=== PATIENT | female | born 1950 | race Caucasian/White ===

== ENCOUNTER 2019-12-29 15:32 | Outpatient (REF) | payer MEDICARE, SELFPAY | END 2019-12-29 15:33 | disposition home or self-care (01) | LOC: HO.LAB 15:32 | PROVIDERS: PCP Internal Medicine; Visit Provider Internal Medicine | DX: Z20.828 Contact with and (suspected) exposure to other viral communicable diseases (principal) | CPT/HCPCS: C9803; U0003 ==

== ENCOUNTER 2020-01-02 10:52 | Outpatient (REF) | payer MEDICARE, SELFPAY ==
[2020-01-02 15:01] LABS: Estimated Average Glucose 131 mg/dL; Hemoglobin A1c % 6.2 %
[2020-01-02 15:20] LABS: Alanine Aminotransferase 20 U/L (0-31); Alkaline Phosphatase 55 U/L (39-117); Anion Gap 11 (12-20); Aspartate Amino Transferase 15 U/L (5-31); Bilirubin Total 0.4 mg/dL (0.0-1.0); Blood Urea Nitrogen 16 mg/dL (9-16); Calcium 9.3 mg/dL (8.4-10.2); Carbon Dioxide 31 mmol/L (22-29); Chloride 105 mmol/L (96-108); Estimated Glomerular Filt Rate > 60; Glucose Random 105 mg/dL (60-115); Potassium 4.2 mmol/l (3.3-5.1); Sodium 143 mmol/L (135-145); Total Protein 6.6 g/dL (6.5-8.0)
== END 2020-01-02 10:53 | disposition home or self-care (01) ==
LOC: HO.HMGCLDS 10:52
PROVIDERS: PCP Internal Medicine; Visit Provider Internal Medicine
DX: E11.9 Type 2 diabetes mellitus without complications (principal); E03.9 Hypothyroidism, unspecified; F32.9 Major depressive disorder, single episode, unspecified; K21.9 Gastro-esophageal reflux disease without esophagitis; E66.09 Other obesity due to excess calories; Z68.31 Body mass index [BMI] 31.0-31.9, adult; M06.9 Rheumatoid arthritis, unspecified
CPT/HCPCS: 80053; 83036

== ENCOUNTER → 2020-02-18 09:55 | Outpatient (BNVA) | payer OTHER, MEDICARE, MEDICAID, SELFPAY | PROVIDERS: PCP Internal Medicine; Visit Provider Nurse Practitioner | DX: K21.9 Gastro-esophageal reflux disease without esophagitis (principal); K75.81 Nonalcoholic steatohepatitis (NASH) | CPT/HCPCS: Q3014 ==

== ENCOUNTER 2020-03-02 16:10 | Outpatient (REF) | payer OTHER, MEDICARE, MEDICAID, SELFPAY ==
[2020-03-03 12:49] LABS: Influenza A PCR NEGATIVE (Negative); Influenza B PCR NEGATIVE (Negative); Resp Syncy Virus RNA Qual PCR NEGATIVE (Negative); SARS COV2 PCR INHOUSE NEGATIVE (Negative)
== END 2020-03-02 16:11 | disposition home or self-care (01) ==
LOC: HO.LAB 16:10
PROVIDERS: Visit Provider Nurse Practitioner Family
DX: Z20.822 Contact with and (suspected) exposure to COVID-19 (principal)
CPT/HCPCS: 0241U; 36415

== ENCOUNTER 2020-03-10 08:05 | Outpatient (REF) | payer OTHER, MEDICARE, MEDICAID, SELFPAY ==
--- NOTE | 2020-03-10 08:10 | US_ITS ---
EXAMINATION: US ABDOMEN COMPLETE CLINICAL INFORMATION: Nonalcoholic steatohepatitis. COMPARISON: Ultrasound abdomen complete 08/01/2018 and 05/05/2016. CT abdomen and pelvis 08/11/2015. TECHNIQUE: Real-time imaging of the abdominal viscera. FINDINGS: PANCREAS: The head and body of the pancreas are normal appearing. The tail is not well visualized due to bowel gas. ABDOMINAL AORTA: The proximal and mid segments are normal in caliber. The distal abdominal aorta is not well visualized due to bowel gas. INFERIOR VENA CAVA: Visualized portions are normal. LIVER: Liver echotexture is increased probably representing fatty infiltration. There is a hypoechoic area adjacent to the gallbladder, characteristic location of focal fatty sparing. The liver is enlarged. The liver contour is normal. No other focal hepatic lesion. There is no intrahepatic biliary duct dilatation seen. GALLBLADDER: Normal. The gallbladder is physiologically distended without evidence of stones, sludge, polyps, wall thickening or pericholecystic fluid. COMMON BILE DUCT: Normal in caliber measuring 0.5 cm in diameter. RIGHT KIDNEY: There are right renal peripelvic cysts. The largest measures 3.3 x 1.9 x 3.3 cm in the midpole. No hydronephrosis. No renal calculi or focal parenchymal lesions. The kidney measures 12.7 cm in maximum dimension. LEFT KIDNEY: There are left renal peripelvic cysts. The largest measures 3.1 x 2.5 x 3.5 cm in the midpole. The previously questioned echogenic lesion in the lateral mid left kidney on 2019 exam is not definitely appreciated. This may be seen on image 37 and 38. No hydronephrosis or renal calculi. The kidney measures 13.7 cm in maximum dimension. SPLEEN: Normal. The spleen measures 8.9 cm in maximum dimension. FREE FLUID: None. US/US abdomen complete IMPRESSION: Enlarged echogenic liver probably representing fatty infiltration. No focal liver lesion or evidence of cirrhosis. Bilateral renal peripelvic cysts. Limited visualization of the pancreas and aorta.
== END 2020-03-10 08:06 | disposition home or self-care (01) ==
LOC: HO.US 08:05
PROVIDERS: PCP Internal Medicine; Visit Provider Nurse Practitioner
DX: K75.81 Nonalcoholic steatohepatitis (NASH) (principal)
CPT/HCPCS: 76700

== ENCOUNTER 2020-04-03 13:01 | Outpatient (REF) | payer OTHER, MEDICARE, MEDICAID, SELFPAY ==
--- NOTE | ~2020-04-03 | MM_ITS ---
EXAMINATION: MM SCREENING DIGITAL BREAST TOMOSYNTHESIS, BILATERAL CLINICAL INFORMATION: Screening. Asymptomatic. The lifetime risk of breast cancer based on the Tyrer-Cuzick Model is 9%. COMPARISON: Mammography: 01/18/2019, 12/11/2017, 07/18/2016 TECHNIQUE: Digital breast tomosynthesis is performed in both the craniocaudal and mediolateral oblique views along with computer-aided detection (CAD). Synthesized 2D images are generated from the tomosynthesis. Additional bilateral MLO views are provided. FINDINGS: There are scattered areas of fibroglandular density (ACR BI-RADS breast composition Category b). Parenchymal pattern is similar to prior studies. Again, there are stable minor asymmetries and benign-appearing nodularity. There are dermal lesions again seen overlying the breasts. The left breast has biopsy clip marker posterior 3:00 position. There are no abnormal calcifications. No developing density or interval mass or architectural abnormality. No significant changes. MM/MM tomosynthesis screening BI IMPRESSION: No significant changes from prior exams. ASSESSMENT: BI-RADS 2: Benign RECOMMENDATION: Routine annual mammography screening. This patient's information was entered into a reminder system with a target due date for their next mammogram.
== END 2020-04-03 13:02 | disposition home or self-care (01) ==
LOC: HO.MAMMO 13:01
PROVIDERS: PCP Internal Medicine; Visit Provider Internal Medicine
DX: Z12.31 Encounter for screening mammogram for malignant neoplasm of breast (principal)
CPT/HCPCS: 77063; 77067

== ENCOUNTER 2020-06-18 09:14 | Outpatient (REF) | payer OTHER, SELFPAY ==
[2020-06-21 13:12] LABS: Alpha Fetoprotein 3.1 ng/mL
== END 2020-06-18 09:15 | disposition home or self-care (01) ==
LOC: HO.HMGCLDS 09:14
PROVIDERS: PCP Internal Medicine; Visit Provider Nurse Practitioner
DX: K75.81 Nonalcoholic steatohepatitis (NASH) (principal)
CPT/HCPCS: 36415; 82105

== ENCOUNTER → 2020-06-25 08:36 | Outpatient (BNVA) | payer OTHER, SELFPAY | PROVIDERS: PCP Internal Medicine; Visit Provider Nurse Practitioner | DX: Z12.11 Encounter for screening for malignant neoplasm of colon (principal); K75.81 Nonalcoholic steatohepatitis (NASH); K21.9 Gastro-esophageal reflux disease without esophagitis | CPT/HCPCS: Q3014 ==

== ENCOUNTER 2020-09-22 12:12 | Outpatient (REF) | payer OTHER, SELFPAY ==
[2020-09-22 14:26] LABS: Estimated Average Glucose 146 mg/dL; Hemoglobin A1c % 6.7 %
[2020-09-22 14:34] LABS: Alanine Aminotransferase 24 U/L (0-31); Albumin Level 3.9 g/dL (3.5-5.0); Alkaline Phosphatase 54 U/L (39-117); Anion Gap 14 (12-20); Aspartate Amino Transferase 16 U/L (5-31); Bilirubin Total 0.3 mg/dL (0.0-1.0); Blood Urea Nitrogen 23 mg/dL (9-16); Calcium 9.6 mg/dL (8.4-10.2); Carbon Dioxide 26 mmol/L (22-29); Chloride 106 mmol/L (96-108); Estimated Glomerular Filt Rate > 60; Glucose Random 110 mg/dL (60-115); Potassium 3.9 mmol/L (3.3-5.1); Sodium 142 mmol/L (135-145); Total Protein 6.4 g/dL (6.5-8.0)
[2020-09-22 14:53] LABS: TSH reflex Free T4 1.63 uIU/mL (0.32-4.0)
[2020-09-23 12:52] LABS: LDL Cholesterol Direct 121 mg/dL (<100)
== END 2020-09-22 12:13 | disposition home or self-care (01) ==
LOC: HO.HMGCLDS 12:12
PROVIDERS: PCP Internal Medicine; Visit Provider Internal Medicine
DX: E03.8 Other specified hypothyroidism (principal); E13.9 Other specified diabetes mellitus without complications; E66.09 Other obesity due to excess calories; F41.1 Generalized anxiety disorder; R42 Dizziness and giddiness
CPT/HCPCS: 36415; 80053; 83036; 83721; 84443

== ENCOUNTER 2020-12-28 12:17 | Outpatient (REF) | payer OTHER, SELFPAY ==
[2020-12-28 14:55] LABS: Alanine Aminotransferase 21 U/L (0-31); Alkaline Phosphatase 63 U/L (39-117); Aspartate Amino Transferase 18 U/L (5-31); Bilirubin Direct 0.2 mg/dL (0.0-0.5); Bilirubin Total 0.4 mg/dL (0.0-1.0); Total Protein 6.5 g/dL (6.5-8.0)
[2021-01-07 09:41] LABS: Alpha Fetoprotein 2.7 ng/mL
== END 2020-12-28 12:18 | disposition home or self-care (01) ==
LOC: HO.LAB 12:17
PROVIDERS: PCP Internal Medicine; Referring Provider Internal Medicine; Visit Provider Nurse Practitioner
DX: K21.9 Gastro-esophageal reflux disease without esophagitis (principal); K75.81 Nonalcoholic steatohepatitis (NASH)
CPT/HCPCS: 36415; 80076; 82105; 99212

== ENCOUNTER 2021-01-11 13:25 | Outpatient (REF) | payer OTHER, SELFPAY ==
[2021-01-11 17:07] LABS: Estimated Average Glucose 134 mg/dL; Hemoglobin A1C 150.6977 umol/L; Hemoglobin A1c % 6.3 %
[2021-01-11 17:24] LABS: TSH reflex Free T4 0.52 uIU/mL (0.32-4.0)
== END 2021-01-11 13:26 | disposition home or self-care (01) ==
LOC: HO.HMGCLDS 13:25
PROVIDERS: Visit Provider Internal Medicine
DX: E03.8 Other specified hypothyroidism (principal); E13.9 Other specified diabetes mellitus without complications
CPT/HCPCS: 36415; 83036; 84443

== ENCOUNTER 2021-02-14 | Outpatient (REF) | payer MEDICARE, SELFPAY | END 2021-02-14 12:25 | disposition home or self-care (01) | LOC: HO.LAB | PROVIDERS: Visit Provider Internal Medicine | DX: Z13.89 Encounter for screening for other disorder (principal) | CPT/HCPCS: C9803; U0003; U0005 ==

== ENCOUNTER 2021-03-25 07:55 | Outpatient (REF) | payer MEDICARE, SELFPAY ==
--- NOTE | ~2021-03-25 | US_ITS ---
EXAMINATION: US ABDOMEN LIMITED CLINICAL INFORMATION: Nonalcoholic steatohepatitis ([place]). COMPARISON: Ultrasound abdomen complete 03/10/2020 and 08/01/2018. CT abdomen and pelvis without contrast 03/12/2015. TECHNIQUE: Real-time imaging of the right upper quadrant abdominal viscera. FINDINGS: PANCREAS: The visualized portion of the pancreas head and body are normal, portion of the pancreatic body and tail, not visualized are obscured by bowel gas. LIVER: Diffusely echogenic liver suggesting hepatic steatosis, no ultrasound evidence of focal liver lesion. GALLBLADDER: Normal. The gallbladder is physiologically distended without evidence of stones, sludge, polyps, wall thickening or pericholecystic fluid. COMMON BILE DUCT: Normal in caliber measuring 0.4 cm in diameter. RIGHT KIDNEY: Multiple right renal parapelvic cysts the largest middle pole measure 3 x 2.5 x 2.8 cm No hydronephrosis or renal calculi. The kidney measures 13.0 cm in maximum dimension. FREE FLUID: None. US/US abdomen limited IMPRESSION: *Redemonstration of diffusely echogenic liver suggesting hepatic steatosis. *Redemonstration of multiple right renal parapelvic cysts. *Ultrasound otherwise normal. No evidence of gallbladder disease, no intra or extrahepatic biliary dilatation.
== END 2021-03-25 07:56 | disposition home or self-care (01) ==
LOC: HO.US 07:55
PROVIDERS: Visit Provider Nurse Practitioner
DX: K75.81 Nonalcoholic steatohepatitis (NASH) (principal)
CPT/HCPCS: 76705

== ENCOUNTER → 2021-04-01 07:08 | Outpatient (BNVA) | payer MEDICARE, SELFPAY | PROVIDERS: PCP Internal Medicine; Referring Provider Internal Medicine; Visit Provider Nurse Practitioner | DX: K75.81 Nonalcoholic steatohepatitis (NASH) (principal); K21.9 Gastro-esophageal reflux disease without esophagitis | CPT/HCPCS: 99212 ==

== ENCOUNTER 2021-04-23 07:44 | Outpatient (REF) | payer MEDICARE, SELFPAY ==
--- NOTE | ~2021-04-23 | MM_ITS ---
EXAMINATION: MM SCREENING DIGITAL BREAST TOMOSYNTHESIS, BILATERAL CLINICAL INFORMATION: Screening. Asymptomatic. The lifetime risk of breast cancer based on the Tyrer-Cuzick Model is 6%. COMPARISON: Mammography: 04/03/2020, 01/18/2019, 12/11/2017 TECHNIQUE: Digital breast tomosynthesis is performed in both the craniocaudal and mediolateral oblique views along with computer-aided detection (CAD). Synthesized 2D images are generated from the tomosynthesis. FINDINGS: There are scattered areas of fibroglandular density (ACR BI-RADS breast composition Category b). There is no significant changes from prior studies. Again, scattered smooth nodularity is seen in both breasts and superimposed dermal lesions. There are scattered benign relatively coarse round calcifications in each breast. Biopsy clip marker again noted on left posterior 3:00 position. The axilla and skin contours are unremarkable. No significant changes. MM/MM tomosynthesis screening BI IMPRESSION: No mammographic evidence of malignancy. ASSESSMENT: BI-RADS 2: Benign RECOMMENDATION: Routine annual mammography screening. This patient's information was entered into a reminder system with a target due date for their next mammogram.
== END 2021-04-23 07:45 | disposition home or self-care (01) ==
LOC: HO.MAMMO 07:44
PROVIDERS: PCP Internal Medicine; Visit Provider Internal Medicine
DX: Z12.31 Encounter for screening mammogram for malignant neoplasm of breast (principal)
CPT/HCPCS: 77063; 77067

== ENCOUNTER 2021-04-26 09:29 | Outpatient (REF) | payer MEDICARE, SELFPAY ==
[2021-04-26 11:41] LABS: Hematocrit 40.5 % (37.0-47.0); Hemoglobin 12.8 g/dl (12.0-16.0)
[2021-04-26 11:55] LABS: Alanine Aminotransferase 17 U/L (0-31); Albumin Level 3.9 g/dL (3.5-5.0); Alkaline Phosphatase 59 U/L (39-117); Anion Gap 11 (12-20); Aspartate Amino Transferase 15 U/L (5-31); Bilirubin Total 0.4 mg/dL (0.0-1.0); Blood Urea Nitrogen 21 mg/dL (9-16); Calcium 9.9 mg/dL (8.4-10.2); Carbon Dioxide 30 mmol/L (22-29); Chloride 105 mmol/L (96-108); Estimated Glomerular Filt Rate > 60; Glucose Random 111 mg/dL (60-115); Potassium 4.4 mmol/L (3.3-5.1); Sodium 142 mmol/L (135-145); Total Protein 6.5 g/dL (6.5-8.0)
[2021-04-26 12:18] LABS: TSH reflex Free T4 0.32 uIU/mL (0.32-4.0)
[2021-04-26 12:21] LABS: Vitamin B12 651 pg/mL (200-900)
[2021-04-26 12:28] LABS: Estimated Average Glucose 126 mg/dL
[2021-04-26 12:34] LABS: Creatinine Urine 126.33 mg/dL; Microalbum/Creatinine Ratio Ur 12.6 ug/mg cr
[2021-04-27 09:51] LABS: LDL Cholesterol Direct 107 mg/dL (<100)
[2021-04-30 13:21] LABS: Vitamin D 25-OH, D2 <4 ng/mL; Vitamin D 25-OH, D3 34 ng/mL; Vitamin D 25-OH, Total 34 ng/mL (30-100)
== END 2021-04-26 09:30 | disposition home or self-care (01) ==
LOC: HO.HMGCLDS 09:29
PROVIDERS: PCP Internal Medicine; Visit Provider Internal Medicine
DX: E13.9 Other specified diabetes mellitus without complications (principal); E53.8 Deficiency of other specified B group vitamins; E55.9 Vitamin D deficiency, unspecified; E66.09 Other obesity due to excess calories; F41.1 Generalized anxiety disorder; K21.9 Gastro-esophageal reflux disease without esophagitis; N32.9 Bladder disorder, unspecified; R42 Dizziness and giddiness; E03.8 Other specified hypothyroidism
CPT/HCPCS: 36415; 80053; 82043; 82306; 82607; 83036; 83721; 84443; 85014; 85018

== ENCOUNTER 2021-06-30 13:55 | Outpatient (REF) | payer OTHER, SELFPAY ==
--- NOTE | ~2021-06-30 | XR_ITS ---
EXAMINATION: LEFT SHOULDER AND LEFT RIBS WITH CHEST X-RAY. CLINICAL INFORMATION: Fall. Pain. COMPARISON: None TECHNIQUE: Left shoulder 3 views. Left ribs and chest x-ray 4 views. FINDINGS: LEFT SHOULDER: There is no visible acute fracture, dislocation or subluxation. Heart size and pulmonary vascularity is normal. There is a small superior greater tuberosity spur. The soft tissues are normal. LEFT RIBS WITH CHEST X-RAY: The lungs are well-expanded and clear of acute pneumonic process. The heart size and pulmonary vascularity is normal. Multiple views of left ribs reveal no visible acute fracture or bony abnormality. The soft tissues are normal. XR/XR shoulder LT min 2V IMPRESSION: Unremarkable left RIBS and chest x-ray. Small enthesophyte along the superior aspect left greater tuberosity. No visible acute fracture or dislocation seen.
--- NOTE | ~2021-06-30 | XR_ITS ---
EXAMINATION: LEFT SHOULDER AND LEFT RIBS WITH CHEST X-RAY. CLINICAL INFORMATION: Fall. Pain. COMPARISON: None TECHNIQUE: Left shoulder 3 views. Left ribs and chest x-ray 4 views. FINDINGS: LEFT SHOULDER: There is no visible acute fracture, dislocation or subluxation. Heart size and pulmonary vascularity is normal. There is a small superior greater tuberosity spur. The soft tissues are normal. LEFT RIBS WITH CHEST X-RAY: The lungs are well-expanded and clear of acute pneumonic process. The heart size and pulmonary vascularity is normal. Multiple views of left ribs reveal no visible acute fracture or bony abnormality. The soft tissues are normal. XR/XR ribs LT min 3V w CXR1V IMPRESSION: Unremarkable left RIBS and chest x-ray. Small enthesophyte along the superior aspect left greater tuberosity. No visible acute fracture or dislocation seen.
== END 2021-06-30 13:56 | disposition home or self-care (01) ==
LOC: HO.HMGCX 13:55
PROVIDERS: Visit Provider Internal Medicine
DX: R07.89 Other chest pain (principal); S49.92XA Unspecified injury of left shoulder and upper arm, initial encounter; W19.XXXA Unspecified fall, initial encounter
CPT/HCPCS: 71101; 73030

== ENCOUNTER 2021-12-08 11:47 | Outpatient (REF) | payer OTHER, SELFPAY ==
--- NOTE | ~2021-12-08 | XR_ITS ---
EXAMINATION: XR CHEST CLINICAL INFORMATION: Fall COMPARISON: June 30, 2021 and May 26, 2011 TECHNIQUE: 2 views of the chest were obtained. FINDINGS: No significant abnormality is noted involving the heart, lungs, mediastinum, bony thorax or soft tissues. XR/XR chest 2V IMPRESSION: No acute disease.
[2021-12-08 13:50] LABS: MANUAL DIFF FLAG NO
[2021-12-08 13:57] LABS: Basophils Percent Auto 0.3 % (0-2); Eosinophils Percent Auto 0.1 % (0-4); Hematocrit 41.2 % (37.0-47.0); Hemoglobin 13.2 g/dl (12.0-16.0); Imm Gran Abs Auto 0.05 X10*3/uL (0.00-0.03); Imm Gran Pct Auto 0.4 % (0.0-0.4); Lymphocytes Absolute Auto 4.3 X10*3/uL (1.2-4.9); Lymphocytes Percent Auto 37.4 % (20-40); Mean Corpuscular Hemoglobin 30.8 pg (27.0-33.0); Mean Corpuscular Volume 96.3 fL (80.0-98.0); Mean Platelet Volume 9.9 fL (9.4-12.3); Monocytes Absolute Auto 0.5 X10*3/uL (0.1-1.2); Neutrophils Absolute Auto 6.6 x10*3/uL (2.0-8.3); Neutrophils Percent Auto 57.8 % (45-73); Platelet Count 321 X10*3/uL (160-400); Red Blood Count 4.28 X10*6/uL (4.20-5.50); White Blood Count 11.4 X10*3/uL (4.8-10.8)
[2021-12-08 14:13] LABS: Alanine Aminotransferase 11 U/L (0-31); Albumin Level 4.2 g/dL (3.5-5.0); Alkaline Phosphatase 60 U/L (39-117); Anion Gap 14 (12-20); Aspartate Amino Transferase 12 U/L (5-31); Blood Urea Nitrogen 24 mg/dL (9-16); Calcium 10.1 mg/dL (8.4-10.2); Carbon Dioxide 29 mmol/L (22-29); Chloride 105 mmol/L (96-108); Estimated Glomerular Filt Rate > 60; Glucose Random 121 mg/dL (60-115); Potassium 4.2 mmol/L (3.3-5.1); Sodium 144 mmol/L (135-145); Total Protein 6.9 g/dL (6.5-8.0)
[2021-12-08 14:25] LABS: Estimated Average Glucose 123 mg/dL; Hemoglobin A1c % 5.9 %
[2021-12-08 14:30] LABS: Bilirubin Total 0.5 mg/dL (0.0-1.0)
[2021-12-08 14:31] LABS: TSH reflex Free T4 0.78 uIU/mL (0.32-4.0)
[2021-12-08 14:37] LABS: Vitamin B12 675 pg/mL (200-900)
[2021-12-08 14:43] LABS: Creatinine Urine 148.49 mg/dL; Microalbum/Creatinine Ratio Ur 10.7 ug/mg cr
[2021-12-14 14:47] LABS: Vitamin D 25-OH, D2 <4 ng/mL; Vitamin D 25-OH, D3 36 ng/mL; Vitamin D 25-OH, Total 36 ng/mL (30-100)
== END 2021-12-08 11:48 | disposition home or self-care (01) ==
LOC: HO.HMGCX 11:47
PROVIDERS: PCP Internal Medicine; Visit Provider Internal Medicine
DX: E13.9 Other specified diabetes mellitus without complications (principal); K21.9 Gastro-esophageal reflux disease without esophagitis; E03.8 Other specified hypothyroidism; F41.1 Generalized anxiety disorder; E66.09 Other obesity due to excess calories; E53.8 Deficiency of other specified B group vitamins; E55.9 Vitamin D deficiency, unspecified; R07.89 Other chest pain; S49.92XA Unspecified injury of left shoulder and upper arm, initial encounter; W19.XXXA Unspecified fall, initial encounter; Y93.9 Activity, unspecified; Y92.9 Unspecified place or not applicable; Y99.9 Unspecified external cause status; Z68.31 Body mass index [BMI] 31.0-31.9, adult
CPT/HCPCS: 36415; 71046; 80053; 82043; 82306; 82607; 83036; 84443; 85025

== ENCOUNTER 2022-04-25 10:08 | Outpatient (REF) | payer OTHER, SELFPAY ==
--- NOTE | ~2022-04-25 | MM_ITS ---
EXAMINATION: MM SCREENING DIGITAL BREAST TOMOSYNTHESIS, BILATERAL CLINICAL INFORMATION: Screening. Asymptomatic. The lifetime risk of breast cancer based on the Tyrer-Cuzick Model is 6%. COMPARISON: Mammography: 04/23/2021, 04/03/2020, 01/18/2019 TECHNIQUE: Digital breast tomosynthesis is performed in both the craniocaudal and mediolateral oblique views along with computer-aided detection (CAD). Synthesized 2D images are generated from the tomosynthesis. FINDINGS: There are scattered areas of fibroglandular density (ACR BI-RADS breast composition Category b). There are no significant masses, abnormal calcifications, or other abnormalities. No architectural abnormality or developing density or significant change from prior studies. There is scattered smooth nodularity and benign coarse round and rim calcifications as well as some overlying dermal lesions again seen. Left breast has biopsy clip marker posterior 3:00 position. The axilla are unremarkable. MM/MM tomosynthesis screening BI IMPRESSION: No mammographic evidence of malignancy. ASSESSMENT: BI-RADS 2: Benign RECOMMENDATION: Routine annual mammography screening. This patient's information was entered into a reminder system with a target due date for their next mammogram.
== END 2022-04-25 10:09 | disposition home or self-care (01) ==
LOC: HO.MAMMO 10:08
PROVIDERS: PCP Internal Medicine; Visit Provider Internal Medicine
DX: Z12.31 Encounter for screening mammogram for malignant neoplasm of breast (principal)
CPT/HCPCS: 77063; 77067

== ENCOUNTER → 2022-06-06 16:02 | Outpatient (BNVA) | payer OTHER, SELFPAY | PROVIDERS: PCP Internal Medicine; Visit Provider Nurse Practitioner | DX: K75.81 Nonalcoholic steatohepatitis (NASH) (principal); K21.9 Gastro-esophageal reflux disease without esophagitis | CPT/HCPCS: 99212 ==

== ENCOUNTER 2022-06-07 14:52 | Outpatient (REF) | payer OTHER, SELFPAY ==
[2022-06-07 16:13] LABS: MANUAL DIFF FLAG NO
[2022-06-07 16:19] LABS: Basophils Percent Auto 0.2 % (0-2); Eosinophils Percent Auto 0.1 % (0-4); Hematocrit 40.5 % (37.0-47.0); Hemoglobin 12.9 g/dl (12.0-16.0); Imm Gran Abs Auto 0.09 X10*3/uL (0.00-0.03); Imm Gran Pct Auto 0.9 % (0.0-0.4); Lymphocytes Percent Auto 28.7 % (20-40); Mean Corpuscular HGB Conc 31.9 g/dl (31.0-35.0); Mean Corpuscular Hemoglobin 31.1 pg (27.0-33.0); Mean Corpuscular Volume 97.6 fL (80.0-98.0); Mean Platelet Volume 9.6 fL (9.4-12.3); Monocytes Absolute Auto 0.4 X10*3/uL (0.1-1.2); Monocytes Percent Auto 3.4 % (2-11); Neutrophils Absolute Auto 7.1 x10*3/uL (2.0-8.3); Neutrophils Percent Auto 66.7 % (45-73); Platelet Count 296 X10*3/uL (160-400); Red Blood Count 4.15 X10*6/uL (4.20-5.50); Red Cell Distribution Width 13.4 % (11.0-16.0); White Blood Count 10.6 X10*3/uL (4.8-10.8)
[2022-06-07 16:36] LABS: Alanine Aminotransferase 17 U/L (0-31); Albumin Level 3.9 g/dL (3.5-5.0); Alkaline Phosphatase 56 U/L (39-117); Aspartate Amino Transferase 14 U/L (5-31); Bilirubin Direct 0.1 mg/dL (0.0-0.5); Bilirubin Total 0.3 mg/dL (0.0-1.0); Total Protein 6.2 g/dL (6.5-8.0)
[2022-06-09 13:18] LABS: Alpha Fetoprotein 2.2 ng/mL
== END 2022-06-07 14:53 | disposition home or self-care (01) ==
LOC: HO.HMGCLDS 14:52
PROVIDERS: Visit Provider Nurse Practitioner
DX: K75.81 Nonalcoholic steatohepatitis (NASH) (principal)
CPT/HCPCS: 36415; 80076; 82105; 85025

== ENCOUNTER 2022-07-19 08:00 | Outpatient (REF) | payer OTHER, SELFPAY ==
--- NOTE | ~2022-07-19 | US_ITS ---
EXAMINATION: US COMPLETE ABDOMEN WITH LIVER ELASTOGRAPHY CLINICAL INFORMATION: [place] COMPARISON: Previous ultrasound exam most recent March 2021 TECHNIQUE: Real-time imaging of the abdominal viscera. Noninvasive ultrasound liver fibrosis assessment is performed using [employer] ElastPQ point quantification shear wave elastography (2D-SWE) with a C5-2 MHz transducer. Multiple elastography samples are obtained. FINDINGS: PANCREAS: Normal. ABDOMINAL AORTA: The proximal, middle, and distal aortic segments are normal in caliber. INFERIOR VENA CAVA: Visualized portions are normal. LIVER: Liver echotexture is increased. The liver is normal in size and contour.. No focal lesion or intrahepatic biliary duct dilatation. The right lobe measures 17 cm in length. The left lobe measures 10.6 cm in length. Portal flow is normal/hepatopedal Shear wave liver elastography median stiffness is 1.6 m/s (reference: normal median stiffness is 1.3 m/s or less). IQR/median stiffness to assess sampling precision is 0.11 (reference: good quality data set is IQR/median stiffness of 0.15 or less). GALLBLADDER: Normal. The gallbladder is physiologically distended without evidence of stones, sludge, polyps, wall thickening or pericholecystic fluid. COMMON BILE DUCT: Normal in caliber measuring 0.3 cm in diameter. RIGHT KIDNEY: Multiple peripelvic cysts largest measuring 4.5 x 2.4 x 4.9 cm in the midpole. No hydronephrosis. No renal calculi . The kidney measures 11 cm in maximum dimension. LEFT KIDNEY: Multiple peripelvic cysts, largest measuring 3.5 x 2.6 x 3.2 cm in the midpole. No hydronephrosis. No renal calculi . The kidney measures 12.4 cm in maximum dimension. SPLEEN: Normal. The spleen measures 8.5 cm in maximum dimension. FREE FLUID: None. US/US abdomen comp w elastography IMPRESSION: 1. Impression: Echogenic liver probably representing fatty infiltration. 2. Liver elastography: Adequate liver sampling. In the absence of other known clinical signs, rules out compensated advanced chronic liver disease. REFERENCE: Society of Radiologists in Ultrasound Liver Stiffness Thresholds (2020): LIVER STIFFNESS THRESHOLDS: *Liver Stiffness equal or less than 1.3 m/s: High probability of being normal. *Liver Stiffness less than 1.7 m/s: In the absence of other known clinical signs, rules out compensated advanced chronic liver disease. *Liver Stiffness 1.7-2.1 m/s: Suggestive of compensated advanced chronic liver disease but need further test for confirmation. *Liver Stiffness over 2.1 m/s: Rules in compensated advanced chronic liver disease. *Liver Stiffness over 2.4 m/s: Suggestive of clinically significant portal hypertension. QUALITY OF DATA SET: *IQR/Median value equal or less than 0.15 implies a quality data set. *IQR/Median value over 0.15 implies a poor quality data set. SIGNIFICANT CHANGE FROM PRIOR EXAM: Significant change if liver stiffness measurement is 10% or greater from prior exam. OTHER CONSIDERATIONS: The stage of liver fibrosis may be overestimated in the setting of acute hepatitis, liver inflammation, elevated liver function tests, hepatic vascular congestion, obstructive cholestasis, non-fasting state, and infiltrative diseases such as amyloidosis and lymphoma. In some patients with NAFLD, the liver stiffness thresholds for compensated advanced chronic liver disease may be lower. In causes other than viral hepatitis and NAFLD, liver stiffness thresholds are not well established.
== END 2022-07-19 08:01 | disposition home or self-care (01) ==
LOC: HO.US 08:00
PROVIDERS: Visit Provider Nurse Practitioner
DX: K75.81 Nonalcoholic steatohepatitis (NASH) (principal)
CPT/HCPCS: 76705; 76981

== ENCOUNTER 2022-07-19 09:40 | Outpatient (REF) | payer OTHER, SELFPAY ==
[2022-07-19 11:50] LABS: Alanine Aminotransferase 21 U/L (0-31); Albumin Level 3.9 g/dL (3.5-5.0); Alkaline Phosphatase 62 U/L (39-117); Anion Gap 14 (12-20); Aspartate Amino Transferase 18 U/L (5-31); Bilirubin Total 0.4 mg/dL (0.0-1.0); Blood Urea Nitrogen 17 mg/dL (9-16); Calcium 9.8 mg/dL (8.4-10.2); Carbon Dioxide 30 mmol/L (22-29); Chloride 105 mmol/L (96-108); Estimated Glomerular Filt Rate > 60; Glucose Random 111 mg/dL (60-115); Potassium 4.8 mmol/L (3.3-5.1); Sodium 144 mmol/L (135-145); Total Protein 6.6 g/dL (6.5-8.0)
[2022-07-19 12:04] LABS: Estimated Average Glucose 126 mg/dL
[2022-07-19 12:14] LABS: Vitamin B12 1278 pg/mL (200-900)
[2022-07-25 12:09] LABS: Vitamin D 25-OH, D2 <4 ng/mL; Vitamin D 25-OH, D3 38 ng/mL; Vitamin D 25-OH, Total 38 ng/mL (30-100)
== END 2022-07-19 09:41 | disposition home or self-care (01) ==
LOC: HO.HMGCLDS 09:40
PROVIDERS: PCP Internal Medicine; Visit Provider Internal Medicine
DX: E13.9 Other specified diabetes mellitus without complications (principal); E53.8 Deficiency of other specified B group vitamins; E55.9 Vitamin D deficiency, unspecified; E66.09 Other obesity due to excess calories; F41.1 Generalized anxiety disorder; K21.9 Gastro-esophageal reflux disease without esophagitis
CPT/HCPCS: 36415; 80053; 82306; 82607; 83036; 84443

== ENCOUNTER 2022-11-28 16:13 | Outpatient (AMB) | payer OTHER, SELFPAY ==
--- NOTE | 2022-11-28 16:14 | MHC.OFFVIS ---
Intake Vital Signs 11/28/22 16:24 Height 5 ft Weight 155 lb 3.287 oz BMI 30.3 BP 132/62 Blood Pressure Location Lt brachial Position Sitting Pulse 67 Intake Visit Reasons: 6 month follow up Intake Note: Patient presents to in office visit today in 6 months follow up of labs and US. CC: Patient reports occasional pulsating RUQ abdominal pain. Damián other GI symptoms today Paper Sheeter Required: Yes Paper Sheeter Name: DAUGHTER Allergies aspirin [ASPIRIN] Allergy (Intermediate, Verified 11/28/22 16:26) STOMACH UPSET HPI 6 month follow up HPI Details Assessment & Plan (1) DURHAM (nonalcoholic steatohepatitis): Comment: 12/2018 normal LFT s, US some underlaying fibrosis, AFP not elevated, autoimmune workup negative, hepatitis a B and C negative. Laboratory Tests 12/28/20 Hemoglobin A1c % 6.3 Total Bilirubin 0.4 Direct Bilirubin 0.2 AST 18 ALT 21 Alkaline Phosphatase 63 Alpha Fetoprotein 2.7 TSH 0.52 ULTRASOUND OF THE ABDOMEN 03/25/21? IMPRESSION: *Redemonstration of diffusely echogenic liver suggesting hepatic steatosis. ? *Redemonstration of multiple right renal parapelvic cysts. ? *Ultrasound otherwise normal. No evidence of gallbladder disease, no intra or extrahepatic biliary dilatation. Code(s): K75.81 - Nonalcoholic steatohepatitis (DURHAM) Plan: SIERRA LEONEAN #dtr translates per pt request She continues to do well on her omeprazole bid for GERD. She is due for more testing for DURHAM so will get labs and an US with elastography to be complete. Her rheum also looks at her liver tests. No ETOH. We again review the 3 big contributors to fatty liver decompensation to control: BS and wt and avoidance toxins. ROV 6 mos. (2) Chronic GERD: Code(s): K21.9 - Gastro-esophageal reflux disease without esophagitis Orders: Orders Alpha Fetoprotein Today K75.81 - Nonalcoho lic steatohepatiti s (DURHAM) Liver Panel Today K75.81 - Nonalcoho lic steatohepatiti s (DURHAM) Complete Blood Cou nt Auto Diff Today K75.81 - Nonalcoho lic steatohepatiti s (DURHAM) US abdomen comp w elastography Today K75.81 - Nonalcoho lic steatohepatiti s (DURHAM) Medications: Refilled omeprazole 20 mg PO BID 90 d ays 180 caps 1RF K21.9 - Gastro-eso phageal reflux dis ease without esoph agitis LABS: Laboratory Tests 06/07/22 06/07/22 06/07/22 14:56 14:56 14:56 Plt Count 296 Total Bilirubin Direct Bilirubin 0.1 AST ALT Alkaline Phosphata se Alpha Fetoprotein 2.2 TSH 07/19/22 07/19/22 07/19/22 09:45 09:45 09:45 Plt Count Total Bilirubin 0.4 Direct Bilirubin AST 18 ALT 21 Alkaline Phosphata se 62 Alpha Fetoprotein TSH 1.20 ULTRASOUND OF THE ABDOMEN WITH ELASTOGRAPHY 07/21/22 (F-0) FINDINGS: PANCREAS: Normal. ABDOMINAL AORTA: The proximal, middle, and distal aortic segments are normal in caliber. INFERIOR VENA CAVA: Visualized portions are normal. LIVER: Liver echotexture is increased. The liver is normal in size and contour.. No focal lesion or intrahepatic biliary duct dilatation. The right lobe measures 17 cm in length. The left lobe measures 10.6 cm in length. Portal flow is normal/hepatopedal Shear wave liver elastography median stiffness is 1.6 m/s (reference: normal median stiffness is 1.3 m/s or less). IQR/median stiffness to assess sampling precision is 0.11 (reference: good quality data set is IQR/median stiffness of 0.15 or less). GALLBLADDER: Normal. The gallbladder is physiologically distended without evidence of stones, sludge, polyps, wall thickening or pericholecystic fluid. COMMON BILE DUCT: Normal in caliber measuring 0.3 cm in diameter. RIGHT KIDNEY: Multiple peripelvic cysts largest measuring 4.5 x 2.4 x 4.9 cm in the midpole. No hydronephrosis. No renal calculi . The kidney measures 11 cm in maximum dimension. LEFT KIDNEY: Multiple peripelvic cysts, largest measuring 3.5 x 2.6 x 3.2 cm in the midpole. No hydronephrosis. No renal calculi . The kidney measures 12.4 cm in maximum dimension. SPLEEN: Normal. The spleen measures 8.5 cm in maximum dimension. FREE FLUID: None. US/US abdomen comp w elastography IMPRESSION: 1. Impression: Echogenic liver probably representing fatty infiltration. 2. Liver elastography: Adequate liver sampling. In the absence of other known clinical signs, rules out compensated advanced chronic liver disease. TODAY'S VISIT SIERRA LEONEAN #dtr translates per pt request She has been having intermittent sharp pains in the RUQ that feels like little stabs and is at times worse with overeating, but also is worse with sleeping on her right side. She says she is moving her bowels well and does not feel like this is related to constipation. When she has it at 3/10 and is very brief in duration. We discussed various things she should look for that may help me tease out what this is including whether it is related to time of day, types of food eaten, if it feels better after passing gas etc.. She will try to pay closer attention to it and should it worsen she is welcome to return to my office for better workup. Her GERD continues to be well controlled on her omeprazole. We review her labs and her liver looks extremely good, within elastography reading F-0 and normal transaminases I do not think we need to monitor her every 6 months. Controlling her weight her diabetes has gone a long wait to protecting her liver. At this point I think she can be monitored by her primary care provider through normal screenings and return to [facility] if the transaminases rise to more than 2 times the normal limit. [facility] Medical History Chronic GERD Diabetes 1.5, managed as type 2 Nausea & vomiting Vertigo Surgical History History of carpal tunnel release History of section History of colonoscopy History of tubal ligation Status post excision of lipoma Family History Father Lung cancer Mother Melanoma Maternal Aunt Breast cancer Daughter No problems noted. Daughter No problems noted. Daughter No problems noted. Daughter No problems noted. Other Mental health disorder Social History Household Members: None Housing: Condominium Alcohol intake: never Patient Tobacco Use Status: Never used Tobacco e-Cigarette/Vaping Use: Never Used Second Hand Smoke Exposure: No Current occupational status: retired Cognitive needs: No Hearing needs: No Vision needs: Yes Review of Systems Const Denies fatigue, Denies fever(s), Denies night sweats, Denies poor appetite and Denies weight loss Eyes Details: glasses Reports requires corrective lenses ENT Reports Normal hearing present, Denies dental pain, Denies dysphagia, Denies hearing loss, Denies mouth pain, Denies odynophagia, Denies throat swelling, Denies tongue swelling and Reports other (Dentition adequate) Card Reports no additional complaints Resp Reports no additional complaints GI Reports abdominal pain, Denies melena, Denies bloating, Denies hematochezia, Denies constipation, Denies GI cramping, Denies dysphagia, Denies excessive flatus, Denies early satiety, Reports heartburn, Denies diarrhea, Denies nausea, Denies odynophagia, Denies vomiting and Denies hematemesis Musc Reports back pain and Reports myalgias Skin/Breast Denies pruritus, Denies lesions, Denies rash and Denies jaundice Neuro Reports Normal hearing present and Denies Abnormal speech present Endo Denies fatigue Aller/Immun Denies throat swelling and Denies tongue swelling Physical Exam Const General: cooperative, no acute distress, well developed and well groomed Nutritional Appearance: well nourished and obese Orientation/consciousness: oriented to person, oriented to place and oriented to time Limitations: language barrier HEENT Head: Yes normocephalic and Yes atraumatic Eyes General: appearance normal, both eyes and all related structures Pupils: Equal, round and reactive pupils present Neck Neck: Yes normal visual inspection and Yes no lymphadenopathy Thyroid: Thyroid normal Resp Effort & Inspection: normal respiratory effort and able to speak in complete sentences Auscultation: clear to auscultation bilaterally Cardio Rate: regular rate Rhythm: regular rhythm Heart sounds: Normal, physiologic split S2 sound present Peripheral pulses: radial pulses present and posterior tibial pulses present GI Inspection: No distended, Yes Abdominal panniculus present and Yes obesity Palpation (GI): Soft to palpation, nontender, no guarding, not rigid and No hepatosplenomegaly present Percussion: Yes normal to percussion Auscultation: normal bowel sounds Rectal Exam - Female: deferred Skin General skin exam: no rashes or lesions noted, turgor normal, skin not dry, no jaundice, No spider nevi and no striae Rashes: no rashes Nails: normal Neuro General: oriented to person, oriented to place and oriented to time Cranial nerves: Yes Equal, round and reactive pupils present and Yes Normal hearing present Speech: No Abnormal speech present Extrem General: Yes normal to inspection, No clubbing, No cyanosis and No edema Psych Appearance: grossly normal and well kempt Mental Status: mental status grossly normal Speech and movement: Normal speech and movement present Affect: normal affect Attitude: cooperative Thought process: Normal thought process present and not confabulating Thought content: Normal thought content present Insight: Limited insight present (Psych) Judgement: Limited judgement present (Psych) Results Reviewed Results Reviewed: Laboratory Tests 06/07/22 06/07/22 06/07/22 14:56 14:56 14:56 Plt Count 296 Total Bilirubin Direct Bilirubin 0.1 AST ALT Alkaline Phosphatase Alpha Fetoprotein 2.2 TSH 07/19/22 07/19/22 07/19/22 09:45 09:45 09:45 Plt Count Total Bilirubin 0.4 Direct Bilirubin AST 18 ALT 21 Alkaline Phosphatase 62 Alpha Fetoprotein TSH 1.20 ULTRASOUND OF THE ABDOMEN WITH ELASTOGRAPHY 07/21/22 (F-0) FINDINGS: PANCREAS: Normal. ABDOMINAL AORTA: The proximal, middle, and distal aortic segments are normal in caliber. INFERIOR VENA CAVA: Visualized portions are normal. LIVER: Liver echotexture is increased. The liver is normal in size and contour.. No focal lesion or intrahepatic biliary duct dilatation. The right lobe measures 17 cm in length. The left lobe measures 10.6 cm in length. Portal flow is normal/hepatopedal Shear wave liver elastography median stiffness is 1.6 m/s (reference: normal median stiffness is 1.3 m/s or less). IQR/median stiffness to assess sampling precision is 0.11 (reference: good quality data set is IQR/median stiffness of 0.15 or less). GALLBLADDER: Normal. The gallbladder is physiologically distended without evidence of stones, sludge, polyps, wall thickening or pericholecystic fluid. COMMON BILE DUCT: Normal in caliber measuring 0.3 cm in diameter. RIGHT KIDNEY: Multiple peripelvic cysts largest measuring 4.5 x 2.4 x 4.9 cm in the midpole. No hydronephrosis. No renal calculi . The kidney measures 11 cm in maximum dimension. LEFT KIDNEY: Multiple peripelvic cysts, largest measuring 3.5 x 2.6 x 3.2 cm in the midpole. No hydronephrosis. No renal calculi . The kidney measures 12.4 cm in maximum dimension. SPLEEN: Normal. The spleen measures 8.5 cm in maximum dimension. FREE FLUID: None. US/US abdomen comp w elastography IMPRESSION: 1. Impression: Echogenic liver probably representing fatty infiltration. 2. Liver elastography: Adequate liver sampling. In the absence of other known clinical signs, rules out compensated advanced chronic liver disease. Assessment & Plan Assessment & Plan (1) DURHAM (nonalcoholic steatohepatitis): Comment: OF 11/2022 I AM RETURNING HER TO HER PRIMARY CARE PROVIDER TO BE MONITORED AT NORMAL SCREENING INTERVALS AND RETURN TO US ONLY FOR TRANSAMINASES RISE TO GREATER THAN 2 TIMES THE NORMAL LIMIT. Baseline 12/2018 normal LFT s, US some underlaying fibrosis, AFP not elevated, autoimmune workup negative, hepatitis a B and C negative. Baseline. Laboratory Tests 12/28/20 Hemoglobin A1c % 6.3 Total Bilirubin 0.4 Direct Bilirubin 0.2 AST 18 ALT 21 Alkaline Phosphatase 63 Alpha Fetoprotein 2.7 TSH 0.52 ULTRASOUND OF THE ABDOMEN WITH ELASTOGRAPHY 07/21/22 (F-0) CURRENT LABS 06/07/22 Plt Count 296 Direct Bilirubin 0.1 Alpha Fetoprotein 2.2 07/19/22 the Total Bilirubin 0.4 Direct Bilirubin AST 18 ALT 21 Alkaline Phosphatase 62 ULTRASOUND OF THE ABDOMEN WITH ELASTOGRAPHY 07/21/22 (F-0) IMPRESSION: 1. Impression: Echogenic liver probably representing fatty infiltration. 2. Liver elastography: Adequate liver sampling. In the absence of other known clinical signs, rules out compensated advanced chronic liver disease. Code(s): K75.81 - Nonalcoholic steatohepatitis (DURHAM) Plan: SIERRA LEONEAN #dtr translates per pt request She has been having intermittent sharp pains in the RUQ that feels like little stabs and is at times worse with overeating, but also is worse with sleeping on her right side. She says she is moving her bowels well and does not feel like this is related to constipation. When she has it at 3/10 and is very brief in duration. We discussed various things she should look for that may help me tease out what this is including whether it is related to time of day, types of food eaten, if it feels better after passing gas etc.. She will try to pay closer attention to it and should it worsen she is welcome to return to my office for better workup. Her GERD continues to be well controlled on her omeprazole. We review her labs and her liver looks extremely good, within elastography reading F-0 and normal transaminases I do not think we need to monitor her every 6 months. Controlling her weight her diabetes has gone a long wait to protecting her liver. At this point I think she can be monitored by her primary care provider through normal screenings and return to [facility] if the transaminases rise to more than 2 times the normal limit. (2) Chronic GERD: Code(s): K21.9 - Gastro-esophageal reflux disease without esophagitis Coding Level of Care Code Est Pt Level 3 (12841) Diagnoses DURHAM (nonalcoholic steatohepatitis) K75.81 Chronic GERD K21.9
[2022-11-28 16:24] VITALS: BP 132/62; PULSE 67; BMI 30.3
== END 2022-11-28 16:51 | disposition home or self-care (01) ==
PROVIDERS: Visit Provider Nurse Practitioner
DX: K75.81 Nonalcoholic steatohepatitis (NASH) (principal); K21.9 Gastro-esophageal reflux disease without esophagitis
CPT/HCPCS: 99213

== ENCOUNTER → 2022-11-28 16:13 | Outpatient (BNVA) | payer OTHER, SELFPAY | PROVIDERS: Visit Provider Nurse Practitioner | DX: K75.81 Nonalcoholic steatohepatitis (NASH) (principal); K21.9 Gastro-esophageal reflux disease without esophagitis; Z79.899 Other long term (current) drug therapy | CPT/HCPCS: 99212 ==

== ENCOUNTER 2022-11-29 11:20 | Outpatient (REF) | payer OTHER, SELFPAY ==
[2022-11-29 13:54] LABS: Alanine Aminotransferase 16 U/L (0-31); Alkaline Phosphatase 61 U/L (39-117); Anion Gap 14 (12-20); Aspartate Amino Transferase 17 U/L (5-31); Bilirubin Total 0.4 mg/dL (0.0-1.0); Blood Urea Nitrogen 16 mg/dL (9-16); Carbon Dioxide 29 mmol/L (22-29); Chloride 104 mmol/L (96-108); Cholesterol 237 mg/dL (<200); Estimated Glomerular Filt Rate > 60; Glucose Fasting 104 mg/dL (60-99); HDL Cholesterol 64 mg/dL (>40); LDL Cholesterol Calculated 149 mg/dL (<100); Potassium 4.8 mmol/L (3.3-5.1); Sodium 142 mmol/L (135-145); Total Protein 7.1 g/dL (6.5-8.0); Triglycerides 124 mg/dL (<150)
[2022-11-29 14:12] LABS: TSH reflex Free T4 3.53 uIU/mL (0.32-4.0)
[2022-11-30 20:13] LABS: LDL Cholesterol Direct 155 mg/dL (<100)
[2022-12-02 18:23] LABS: Vitamin D 25-OH, D2 <4 ng/mL; Vitamin D 25-OH, D3 35 ng/mL; Vitamin D 25-OH, Total 35 ng/mL (30-100)
== END 2022-11-29 11:21 | disposition home or self-care (01) ==
LOC: HO.HMGCLDS 11:20
PROVIDERS: PCP Internal Medicine; Visit Provider Internal Medicine
DX: Z00.01 Encounter for general adult medical examination with abnormal findings (principal); E53.8 Deficiency of other specified B group vitamins; E55.9 Vitamin D deficiency, unspecified; E66.09 Other obesity due to excess calories; E03.8 Other specified hypothyroidism; F41.1 Generalized anxiety disorder; E13.9 Other specified diabetes mellitus without complications; K21.9 Gastro-esophageal reflux disease without esophagitis
CPT/HCPCS: 36415; 80053; 80061; 82306; 82607; 83036; 83721; 84443; 85025

== ENCOUNTER → 2023-01-30 13:12 | Outpatient (REF) | payer OTHER, SELFPAY ==
--- NOTE | 2023-01-30 13:15 | HM_ITS ---
Conclusion: 1. Patient was monitored for total period of 1 day 2. Baseline was normal sinus rhythm with average heart of 64 beats per minute 3. Frequent sinus bradycardia noted with total burden of 45% with lower start of 47 beats per minute with no significant pauses 4. No significant arrhythmias noted 5. No patient reported events MTDD
== END ==
LOC: HO.CARD 13:12
PROVIDERS: PCP Internal Medicine; Visit Provider Internal Medicine
DX: R00.2 Palpitations (principal)
CPT/HCPCS: 93225

== ENCOUNTER → 2023-01-30 13:15 | Outpatient (BNV) | payer OTHER, SELFPAY | PROVIDERS: PCP Internal Medicine; Visit Provider Internal Medicine Cardiovascular Disease | DX: R00.1 Bradycardia, unspecified (principal) | CPT/HCPCS: 93227 ==

== ENCOUNTER 2023-02-17 09:56 | Emergency (ER) | payer OTHER, SELFPAY ==
--- NOTE | ~2023-02-17 | XR_ITS ---
EXAMINATION: XR FOREARM, RIGHT CLINICAL INFORMATION: Pain status-post fall. COMPARISON: None available. TECHNIQUE: AP and lateral views of the right forearm were obtained. FINDINGS: The bones and soft tissues are normal. No fracture. Imaged portions of the elbow and wrist are unremarkable. XR/XR forearm RT 2V IMPRESSION: Normal right forearm.
--- NOTE | ~2023-02-17 | CT_ITS ---
EXAMINATION: CT HEAD WITHOUT CONTRAST CLINICAL INFORMATION: Fall head injury COMPARISON: None TECHNIQUE: Contiguous axial imaging was performed from the skull base to vertex without intravenous administration of contrast. This CT examination was performed using dose optimization techniques as appropriate, variously including the following: *Automated exposure control *Adjustment of mA and/or kV according to patient size (this includes techniques or standardized protocols for targeted exams where dose is matched to indication/reason for exam; i.e. extremities or head) *Use of iterative reconstruction technique DLP: 1055 mGy-cm FINDINGS: There is no evidence of acute intracranial hemorrhage or territorial infarction. No abnormal mass effect or midline shift is seen. White to white matter differentiation is well preserved. No extra-axial fluid collections are identified. The ventricles are normal in size. There is no abnormal attenuation within the brain parenchyma. The osseous structures and soft tissues are normal. The mastoid air cells and visualized portions of the paranasal sinuses are well aerated. CT/CT cervical spine wo IV con IMPRESSION: No acute intracranial pathology. EXAMINATION: Noncontrast CT scan of the cervical spine. INDICATION: Fall COMPARISON: 1055 TECHNIQUE: Helical, multidetector axial images were obtained from the occiput to the upper thorax. Coronal and sagittal reformats of the cervical spine were provided for interpretation. DLP: None. mGy-cm FINDINGS: No acute fractures or dislocations of the cervical spine are seen. Straightening of the normal cervical curvature which may be secondary to patient positioning versus muscle spasm. Grade 1 anterolisthesis of C3 on C4 and C4 on C5. Multilevel degenerative changes. Anatomic alignment and positioning of the vertebral bodies and posterior elements is noted. The atlantoaxial joint and craniovertebral articulations are normal without evidence of subluxation. There is no prevertebral soft tissue swelling. The thyroid gland and visualized portions of the lung apices and mediastinum are unremarkable. IMPRESSION: 1. No acute visible fracture or dislocation. 2. Straightening of the normal cervical curvature which may be secondary to patient positioning versus muscle spasm. 3. Grade 1 anterolisthesis of C3 on C4 and C4 on C5. 4. Multilevel degenerative changes.
[2023-02-17 10:30] VITALS: BP 147/62; PULSE 53; RESP 18; TEMP 36; BMI 29.4
--- NOTE | 2023-02-17 10:58 | ED.FALL ---
HPI - Fall General Chief Complaint: Fall Stated Complaint: fall 02/15, head injury Time Seen by Provider: 02/17/23 10:39 Source: patient and family Mode of arrival: ambulatory Limitations: language barrier ( Telugu-speaking transportation department supervisor utilized) History of Present Illness HPI Narrative: patient is a 73-year-old female who presents emergency department for evaluation after mechanical fall 2 days ago on 02/15/2023. States that she was attempting to hang Alix lights in her room, she was standing on her bed when she lost her footing in the sheets, resulting in her falling off the side of the bed. She struck the back of her head against a dresser denies any loss of consciousness nor use of anticoagulants, and hit her right arm into the dresser as well were she sustained a proximal forearm skin tear and has pain to this region. she has been experiencing intermittent headache reports a lump to the before region. Denies dizziness, lightheadedness. She reports diffuse neck pain bilateral shoulder pain. Denies numbness or tingling of the extremities, weakness, unsteady gait, bladder bowel dysfunction, saddle paresthesias. Related Data Home Medications Medication Instructions Recorded Confirmed cholecalciferol (vitamin D3) 25 25 mcg PO DAILY 01/29/20 11/29/22 mcg (1,000 unit) capsule celecoxib 200 mg capsule 200 mg PO BID 04/01/21 11/29/22 magnesium 250 mg tablet 250 mg PO DAILY 06/06/22 11/29/22 Previous Rx's Medication Instructions Recorded blood sugar diagnostic (FreeStyle #100 ea 12/09/21 Lite Strips) lancets 28 gauge (FreeStyle #100 ea 12/09/21 Lancets) flash glucose scanning reader #1 ea 12/19/21 (FreeStyle [facility]) flash glucose scanning reader #1 ea 12/20/21 (FreeStyle [facility]) cyanocobalamin (vitamin B-12) 500 500 mcg PO DAILY #90 tabs 05/04/22 mcg tablet (Vitamin B-12) omeprazole 20 mg capsule,delayed 20 mg PO BID 90 days #180 caps 06/06/22 release fluticasone propionate 50 1 spray intranasal BID #16 grams 07/29/22 mcg/actuation nasal spray,suspension (Flonase Allergy Relief) meclizine 25 mg tablet 25 mg PO BID PRN dizziness 15 days 11/29/22 #30 tabs levothyroxine 88 mcg tablet 88 mcg PO DAILY #90 tabs 02/02/23 tizanidine 4 mg tablet 4 mg PO Q8H PRN muscle spasticity 02/17/23 #14 tabs Allergies Allergy/AdvReac Type Severity Reaction Status Date / Time aspirin [ASPIRIN] Allergy Intermediate STOMACH Verified 02/17/23 10:33 UPSET Review of Systems Review of Systems: Yes all other systems are reviewed and are negative [facility] Past Medical History Attestation statement: The following information was validated with the patient. Source: old records reviewed Medical History Nausea & vomiting Vertigo Diabetes 1.5, managed as type 2 Chronic GERD Surgical History Status post excision of lipoma History of colonoscopy History of carpal tunnel release History of tubal ligation History of section Family History Family History Father Lung cancer Mother Melanoma Maternal Aunt Breast cancer Daughter No problems noted. Daughter No problems noted. Daughter No problems noted. Daughter No problems noted. Other Mental health disorder Social History Social History Household Members: None Housing: Condominium Alcohol intake: never Patient Tobacco Use Status: Never used Tobacco e-Cigarette/Vaping Use: Never Used Second Hand Smoke Exposure: No Advance Directives: No Advance Directives Information Provided: No Current occupational status: retired Cognitive needs: No Hearing needs: No Vision needs: Yes Physical Exam Vital Signs: Vital Signs: Last Vital Signs Temp 97.7 F 02/17/23 14:32 Pulse 55 02/17/23 14:32 Resp 14 02/17/23 14:32 BP 94/54 L 02/17/23 14:32 Pulse Ox 97 02/17/23 14:32 O2 Del Method Room Air 02/17/23 14:32 BMI result Body Mass Index 29.4 Appearance: Alert.?Oriented to person, place and time. No acute distress.?Normal affect. Head: Normocephalic. Small hematoma to the right occipital region Eyes: Pupils equal, round and reactive to light. EOMI. Conjunctiva and sclera normal? No Reynolds sign noted. No raccoon eyes noted ENT: No septal hematoma, nares patent bilaterally. External auditory canal normal tympanic membrane pearly braun and intact bilaterally. Dentition normal, no fractured teeth. No lesions or lacerations of oropharynx. Uvula midline. Moist mucous membranes. Neck: Normal inspection.? Neck supple.??No palpable tenderness, step-off, deformities. CVS: Heart sounds normal. Normal heart rate and rhythm.? Pulses normal.?? Respiratory: No respiratory distress.? Lung sounds clear to auscultation bilaterally?? Abdomen: Soft and non-tender. Normoactive bowel sounds. ?? Skin: Skin warm and dry.? Normal skin color.? Extremities: No lower extremity edema.? 2 cm proximal right forearm skin tear Neuro: Moves all extremities spontaneously. Sensation intact bilaterally. CN II-XII intact. No focal neuro deficits. ambulatory with a steady gait Course Reevaluation(s) Reevaluation #1: XR of the right forearm without evidence of fracture dislocation. Patient had significant improvement in pain with tizanidine. CT of the head is without acute intracranial pathology, no evidence of fracture. There is straightening of the normal cervical curvature sure likely due to muscle spasming, in addition to degenerative changes with grade 1 anterolisthesis of C3 on C4 and C4 on C5. Patient and daughter were made aware of these findings. Discussed recommendations for treatment including NSAID which she is already prescribed, physical therapy, rest, outpatient follow-up with primary care provider and/or possible referral for Neurosurgery in the future should symptoms not improve. At this time patient will be discharged home, sent prescription for tizanidine the patient's pharmacy. Discussed worrisome signs and symptoms that would warrant re-evaluation emergency department. All questions answered. Stable for discharge. Time: 14:38 Medications Administered Discontinued Medications Generic Name Dose Route Start Last Admin Trade Name Freq PRN Reason Stop Dose Admin Tizanidine HCl 4 mg 02/17/23 11:05 02/17/23 11:30 Tizanidine Hcl 4 Mg Tablet PO 02/17/23 11:06 4 mg ONCE ONE Administration Medical Decision Making Medical Decision Making MDM Narrative: patient is a 73-year-old female with past medical history of GERD, diabetes, vertigo presenting to emergency department for evaluation after mechanical fall 2 days ago with head strike and no loss of consciousness. upon physical examination she has a skin Tear to the right proximal forearm which would not be amenable to any suture repair at this time, has proximal forearm tenderness upon palpation, full AROM to the elbow and wrist, plan to obtain XR to exclude fracture to the forearm. She has no focal neurological deficits upon examination, there is a right occipital scalp hematoma, plan to obtain CT head and cervical spine to exclude ICH/ SDH/fracture/ subluxation. Will trial tizanidine for pain med at this time a she has diffuse tenderness upon palpation of the trapezius and paraspinal muscles. she has bursitis of bilateral hips and she is already prescribed Celebrex which she took today, would defer any additional NSAID. Differential Diagnosis Differential Diagnoses: The differential diagnosis associated with the presentation includes ( as noted above) Admission/Observation Consideration of admission/observation: Escalation of care including admission/observation considered ( see narrative above and course narrative for further detail) Independent Interpretation I performed an independent interpretation of an: Plain X-Ray ( I personally interpreted XR and agree with radiologist impression) and CT Scan Radiology Impression Discussion of test interpretation with radiology: I have reviewed the radiologist's reading. Radiologist Impression: XR/XR forearm RT 2V IMPRESSION: Normal right forearm. IMPRESSION: 1. No acute visible fracture or dislocation. 2. Straightening of the normal cervical curvature which may be secondary to patient positioning versus muscle spasm. 3. Grade 1 anterolisthesis of C3 on C4 and C4 on C5. 4. Multilevel degenerative changes. Independent Historian Clinical information obtained from an independent historian. History obtained from or confirmed by: Other ( daughter who confirms history) External Record Review External record reviewed: Outpatient record Discharge Plan Discharge Clinical Impression: Closed head injury without loss of consciousness, Anterolisthesis of cervical spine Patient Disposition: Home, Self-Care Instructions: Head Injury (ED), Spondylolisthesis (ED) Additional Instructions: as discussed, the CT scan does not show any evidence of fracture bleeding into the brain which is very reassuring. The CT of the neck reveals degenerative/ arthritic changes with grade 1 anterolisthesis of C3 on C4 and C4 on C5. As discussed, the recommendation for treatment of this includes NS AID in which he may continue taking her Celebrex as currently prescribed, rest, consulting with your primary care provider to set up physical therapy, and an additional appointment for outpatient follow-up and further management. I sent a prescription for the tizanidine to the pharmacy, as discussed this medication may make you drowsy, should not drive, drink alcohol, or operate any type of machinery while taking this medication. The x-ray of the right form does not show any evidence of fracture dislocation which is very reassuring, continue applying topical antibiotic ointment to the skin tear as you have been. Prescriptions: New tizanidine 4 mg tablet 4 mg PO Q8H PRN (Reason: muscle spasticity) Qty: 14 0RF No Action (DME) lancets [FreeStyle Lancets] 28 gauge misc See Rx Instructions .Route Qty: 100 0RF Rx Instructions: Once a day (DME) FreeStyle Lite Strips Strip See Rx Instructions .Route Qty: 100 0RF Rx Instructions: Once a day (DME) FreeStyle [facility] Misc See Rx Instructions .Route Qty: 1 0RF Rx Instructions: As directed (DME) FreeStyle [facility] Misc See Rx Instructions .Route Qty: 1 0RF Rx Instructions: As directed cyanocobalamin (vitamin B-12) [Vitamin B-12] 500 mcg tablet 500 mcg PO DAILY Qty: 90 3RF levothyroxine 88 mcg tablet 88 mcg PO DAILY Qty: 90 0RF cholecalciferol (vitamin D3) 25 mcg (1,000 unit) capsule 25 mcg PO DAILY fluticasone propionate [Flonase Allergy Relief] 50 mcg/actuation spray,suspension 1 spray intranasal BID Qty: 16 0RF Rx Instructions: administer into each nostril meclizine 25 mg tablet 25 mg PO BID PRN (Reason: dizziness) 15 Days Qty: 30 0RF celecoxib 200 mg capsule 200 mg PO BID magnesium 250 mg tablet 250 mg PO DAILY omeprazole 20 mg capsule,delayed release(DR/EC) 20 mg PO BID 90 Days Qty: 180 1RF Referrals: Travis Carias MD [Primary Care Provider] -
[2023-02-17] MEDS: TiZANidine HCL 4 MG TABLET PO (11:30)
[2023-02-17 14:32] VITALS: BP 94/54; PULSE 55; RESP 14; TEMP 36.5; O2SAT 97
== END 2023-02-17 15:00 | disposition home or self-care (01) ==
PROVIDERS: Emergency Provider Emergency Medicine; PCP Internal Medicine
DX: S09.90XA Unspecified injury of head, initial encounter (principal); S13.4XXA Sprain of ligaments of cervical spine, initial encounter; R51.9 Headache, unspecified; M54.2 Cervicalgia; M79.601 Pain in right arm; W06.XXXA Fall from bed, initial encounter; Y93.9 Activity, unspecified; Y92.003 Bedroom of unspecified non-institutional (private) residence as the place of occurrence of the external cause; Y99.9 Unspecified external cause status
CPT/HCPCS: 70450; 72125; 73090; 99284

== ENCOUNTER 2023-03-08 14:44 | Outpatient (AMB) | payer OTHER, SELFPAY ==
[2023-03-08 14:47] VITALS: BP 118/66; PULSE 53; BMI 28.8
--- NOTE | 2023-03-08 14:47 | A.OFFVIS_ITS ---
Intake Vital Signs 03/08/23 14:47 Height 5 ft Weight 147 lb 11.355 oz BMI 28.8 BP 118/66 Blood Pressure Location Lt brachial Position Sitting Pulse 53 Intake Visit Reasons: registry np/ palp /gisselle Intake Note: NPV w/ EKG Accompanied by: Daughter Allergies aspirin [ASPIRIN] Allergy (Intermediate, Verified 03/08/23 14:49) STOMACH UPSET Medication List - Last Reconciled 03/08/23 by Jean Coombs MD blood sugar diagnostic (FreeStyle Lite Strips) Once a day celecoxib 200 mg PO BID cholecalciferol (vitamin D3) 25 mcg PO DAILY cyanocobalamin (vitamin B-12) (Vitamin B-12) 500 mcg PO DAILY flash glucose scanning reader (FreeStyle [facility]) As directed flash glucose scanning reader (FreeStyle [facility]) As directed fluticasone propionate 50 mcg/actuation (Flonase Allergy Relief) 1 spray intranasal BID lancets (FreeStyle Lancets) Once a day levothyroxine 88 mcg PO DAILY magnesium 250 mg PO DAILY meclizine 25 mg PO BID PRN 15 days omeprazole 20 mg PO BID 90 days tizanidine 4 mg PO Q8H PRN HPI HPI Comments History of Present Illness Details Anna is here for consultation regarding palpitations. She states that she is getting palpitations mainly at nighttime. In fact she has no palpitations at all during the day. Daughter access geometry professor and they signed the appropriate form. No other cardiac issues like coronary disease or myocardial infarction or cardiomyopathy or in fact any other cardiac concerns the past. Apart from the nighttime palpitations he does not have any other complaints like angina or shortness of breath. Daughter states that she is actually functioning quite well. [facility] Medical History Nausea & vomiting Vertigo Diabetes 1.5, managed as type 2 Chronic GERD Surgical History Status post excision of lipoma History of colonoscopy History of carpal tunnel release History of tubal ligation History of section Family History Father Lung cancer Mother Melanoma Maternal Aunt Breast cancer Daughter No problems noted. Daughter No problems noted. Daughter No problems noted. Daughter No problems noted. Other Mental health disorder Social History Household Members: None Housing: Condominium Alcohol intake: never Patient Tobacco Use Status: Never used Tobacco e-Cigarette/Vaping Use: Never Used Second Hand Smoke Exposure: No Current occupational status: retired Cognitive needs: No Hearing needs: No Vision needs: Yes Review of Systems Const Denies chills, Denies daytime sleepiness, Denies fatigue, Denies fever(s), Denies frequent falls, Denies night sweats, Denies snoring, Denies weakness, Denies weight gain and Denies weight loss Eyes Denies loss of vision ENT Denies dizziness and Denies hearing loss Card Denies chest pain, Denies chest pain with activity, Denies syncope, Denies rapid heart rate, Denies edema, Denies claudication, Denies leg edema, Denies lightheadedness, Denies dyspnea, Denies dyspnea on exertion and Denies orthopnea Resp Denies cough, Denies excessive phlegm production, Denies dyspnea, Denies dyspnea on exertion, Denies snoring and Denies wheezing GI Denies abdominal pain, Denies hematochezia, Denies change in bowel habits, Denies change in stool character, Denies heartburn, Denies nausea and Denies vomiting Denies hematuria, Denies urinary frequency and Denies dysuria Musc Denies arthralgias, Denies muscle weakness, Denies numbness and Denies tingling Skin/Breast Denies nail changes and Denies rash Neuro Denies Abnormal speech present, Denies dizziness, Denies syncope, Denies frequent falls, Denies loss of vision, Denies memory loss, Denies numbness, Denies tingling and Denies weakness Psych Denies depression and Denies memory loss Endo Denies fatigue Aller/Immun Denies wheezing Physical Exam Vital Signs: Last Vital Signs Pulse 53 03/08/23 14:47 BP 118/66 03/08/23 14:47 BMI result Body Mass Index 28.8 Const General: comfortable and no acute distress Orientation/consciousness: patient oriented x3 HEENT Other: Unremarkable Head: Yes normal to inspection Neck Neck: Yes normal visual inspection Chest Chest palpation & inspection: normal inspection of the chest Resp Auscultation: clear to auscultation bilaterally Cardio Palpation: normal PMI Heart sounds: S1 normal heart sound present, S2 normal heart sound present, no gallops, no murmurs and no rubs GI Palpation (GI): Soft to palpation Back/Spine/Pelvis Other: unremarkable Skin General skin exam: no rashes or lesions noted Neuro General: patient oriented x3 Speech: No Abnormal speech present Extrem General: Yes normal to inspection Psych Mental Status: mental status grossly normal Office Procedures EKG Details: EKG with sinus bradycardia at 53/Min; nonspecific ST-T changes; [place] [id number], Complete Assessment & Plan Assessment & Plan (1) Palpitations: Code(s): R00.2 - Palpitations Plan Baseline EKG shows sinus bradycardia and nonspecific ST-T changes. In the recent Holter, there was sinus bradycardia noted but no significant pauses. No clear explanation for palpitations although she states she had no symptoms on that day of Holter. We can offer 7 day Holter. Otherwise, echocardiogram for cardiac function assessment. Follow-up after the above. Orders: Orders ECG 7 day holter monitor Today R00.2 - Palpitations CA echo transthoracic complete Today R00.2 - Palpitations Coding Level of Care Code New Pt Level 3 (29824) Diagnoses Palpitations R00.2 CPT Codes EKG - CPT: 07871-[id number], Complete ([id number])
== END 2023-03-08 15:17 | disposition home or self-care (01) ==
PROVIDERS: PCP Internal Medicine; Visit Provider Internal Medicine
DX: R00.2 Palpitations (principal)
CPT/HCPCS: 93010; 99203

== ENCOUNTER → 2023-03-08 14:44 | Outpatient (BNVA) | payer OTHER, SELFPAY | PROVIDERS: PCP Internal Medicine; Visit Provider Internal Medicine | DX: R00.2 Palpitations (principal) | CPT/HCPCS: 93005; 99202 ==

== ENCOUNTER 2023-03-30 08:17 | Outpatient (AMB) | payer OTHER, SELFPAY ==
--- NOTE | 2023-03-30 08:44 | A.OFFPC_ITS ---
Vital Signs 03/30/23 08:46 Height 5 ft Intake Visit Reasons: 4 Month follow up Allergies aspirin [ASPIRIN] Allergy (Intermediate, Verified 03/30/23 08:45) STOMACH UPSET Medication List - Last Reconciled 03/30/23 by Travis Carias MD blood sugar diagnostic (FreeStyle Lite Strips) Once a day celecoxib 200 mg PO BID cholecalciferol (vitamin D3) 25 mcg PO DAILY cyanocobalamin (vitamin B-12) (Vitamin B-12) 500 mcg PO DAILY flash glucose scanning reader (FreeStyle Melva 2 [place]) As directed flash glucose scanning reader (FreeStyle Melva 2 [place]) As directed lancets (FreeStyle Lancets) Once a day levothyroxine 88 mcg PO DAILY magnesium 250 mg PO DAILY omeprazole 20 mg PO BID 90 days tizanidine 4 mg PO Q8H PRN Tobacco use date assessed: 03/30/23 Fall risk assessment: 1 Fall in past year Last assessed Fall Risk: 03/30/23 Dental Screening Dental Screen Date: 03/30/23 Did you have a dental visit in the last 12 months?: No Did you have a dental problem in the last 6 months where you did not have access to dental care?: No Was dental information given to patient?: No HPI 4 Month follow up HPI Details Patient is 73-year-old female this is a telemedicine video conference patient's daughter is present who is assisting in translation Patient is having difficulty with moving her bowels, they are very hard and sometime she has to push which causes slight bleeding I have sent Colace patient is to start taking 2 tablets every night, she is to get back to me in couple of weeks if still having issues with bowel Anxiety disorder:? Patient is on Lexapro 20 mg, doing well Diabetes mellitus:? Diet controlled, hemoglobin A1c is stable Chronic vertigo: I sent Antivert for the patient, I did offer Neurology appointment today which she declined She is due for labs, order placed patient was notified to do it fasting [facility]thritis treatment through [facility] Dr. Otto Bernal is through them now Other providers patient is seeing Urology, Dr Rosario [facility] Continue supplement vitamin-D, vitamin B12 wheeze on hold because of high level Follow-up 4 months ??? [facility] Medical History Nausea & vomiting Vertigo Diabetes 1.5, managed as type 2 Chronic GERD Surgical History Status post excision of lipoma History of colonoscopy History of carpal tunnel release History of tubal ligation History of section Family History Father Lung cancer Mother Melanoma Maternal Aunt Breast cancer Daughter No problems noted. Daughter No problems noted. Daughter No problems noted. Daughter No problems noted. Other Mental health disorder Social History Household Members: None Housing: Condominium Alcohol intake: never Patient Tobacco Use Status: Never used Tobacco e-Cigarette/Vaping Use: Never Used Second Hand Smoke Exposure: No Current occupational status: retired Cognitive needs: No Hearing needs: No Vision needs: Yes Questionnaire Thrive Questionnaire Date Thrive assessed: 05/11/21 AUDIT C Alcohol Use Questionnaire (AUDIT-C) 1. How often do you have a drink containing alcohol?: Never 3. How often do you have six or more drinks on one occasion?: Never Total Score: 0 Score Reviewed/Action Taken: Yes COLE-7 AMB Questionnaire COLE-7 Date COLE - 7 assessed: 05/11/21 Source: Developed by Drs. Pablo Estrada, Kelley Cerna, Pk Fofana and colleagues, with an educational harpreet from [employer]. Review of Systems ENT Denies epistaxis and Denies nasal discharge Card Denies chest pain Resp Denies chest congestion, Denies cough and Denies hemoptysis GI Denies diarrhea and Denies nausea Skin/Breast Denies rash Neuro Reports no additional complaints Psych Reports no additional complaints Endo Reports no additional complaints Physical exam (Primary Care) Tobacco/Smoking Status: Tobacco use Status Tobacco use date assessed 03/30/23 03/30/23 08:46 Patient Tobacco Use Status Never used Tobacco 03/30/23 08:46 e-Cigarette/Vaping Use Never Used 03/30/23 08:46 Thrive Assessment: Date of Thrive Assessment Date Thrive assessed 05/11/21 03/30/23 08:46 Telehealth Telehealth Location of provider rendering services: practice address Location of patient: address on file Patient Identification confirmed using: Name, : Yes Telehealth method: video Patient verbally consented to treatment: Yes Patient verbally consented to billing insurance company: Yes Patient informed of any privacy concerns related to visit: Yes Assessment and Plan Assessment & Plan (1) Diabetes 1.5, managed as type 2: Code(s): E13.9 - Other specified diabetes mellitus without complications (2) Chronic GERD: Code(s): K21.9 - Gastro-esophageal reflux disease without esophagitis (3) Vertigo: Code(s): R42 - Dizziness and giddiness (4) Other specified hypothyroidism: Code(s): E03.8 - Other specified hypothyroidism (5) Anxiety, generalized: Code(s): F41.1 - Generalized anxiety disorder (6) Vitamin D deficiency: Code(s): E55.9 - Vitamin D deficiency, unspecified (7) Constipation by delayed colonic transit: Code(s): K59.01 - Slow transit constipation Plan Patient is 73-year-old female this is a telemedicine video conference patient's daughter is present who is assisting in translation Patient is having difficulty with moving her bowels, they are very hard and sometime she has to push which causes slight bleeding I have sent Colace patient is to start taking 2 tablets every night, she is to get back to me in couple of weeks if still having issues with bowel She is also feeling as if she is going to come down with a cold, patient is vaccinated against are RVS, flu, and COVID Anxiety disorder:? Patient is on Lexapro 20 mg, doing well Diabetes mellitus:? Diet controlled, hemoglobin A1c is stable Chronic vertigo: I sent Antivert for the patient, I did offer Neurology appointment today which she declined She is due for labs, order placed patient was notified to do it fasting Arthritis treatment through [facility] Dr. Menjivar Celmarcorex is through them now Other providers patient is seeing Urology, Dr oRsario Gastroenterology [facility] Continue supplement vitamin-D, vitamin B12 wheeze on hold because of high level Follow-up 4 months ??? Orders: Orders Hemoglobin A1c Today E03.8 - Other specified hypothyroidism, E13.9 - Other specified diabetes mellitus without complications, E55.9 - Vitamin D deficiency, unspecified, F41.1 - Generalized anxiety disorder, K21.9 - Gastro-esophageal reflux disease without esophagitis, K59.01 - Slow transit constipation, R42 - Dizziness and giddiness Complete Blood Count Auto Diff Today E03.8 - Other specified hypothyroidism, E13.9 - Other specified diabetes mellitus without complications, E55.9 - Vitamin D deficiency, unspecified, F41.1 - Generalized anxiety disorder, K21.9 - Gastro-esophageal reflux disease without esophagitis, K59.01 - Slow transit constipation, R42 - Dizziness and giddiness Lipid Panel Today E03.8 - Other specified hypothyroidism, E13.9 - Other specified diabetes mellitus without complications, E55.9 - Vitamin D deficiency, unspecified, F41.1 - Generalized anxiety disorder, K21.9 - Gastro-esophageal reflux disease without esophagitis, K59.01 - Slow transit constipation, R42 - Dizziness and giddiness Comprehensive [place]. Panel Fast Today E03.8 - Other specified hypothyroidism, E13.9 - Other specified diabetes mellitus without complications, E55.9 - Vitamin D deficiency, unspecified, F41.1 - Generalized anxiety disorder, K21.9 - Gastro-esophageal reflux disease without esophagitis, K59.01 - Slow transit constipation, R42 - Dizziness and giddiness TSH reflex Free T4 Today E03.8 - Other specified hypothyroidism, E13.9 - Other specified diabetes mellitus without complications, E55.9 - Vitamin D deficiency, unspecified, F41.1 - Generalized anxiety disorder, K21.9 - Gastro-esophageal reflux disease without esophagitis, K59.01 - Slow transit constipation, R42 - Dizziness and giddiness Vitamin B12 Today E03.8 - Other specified hypothyroidism, E13.9 - Other specified diabetes mellitus without complications, E55.9 - Vitamin D deficiency, unspecified, F41.1 - Generalized anxiety disorder, K21.9 - Gastro-esophageal reflux disease without esophagitis, K59.01 - Slow transit constipation, R42 - Dizziness and giddiness Vitamin D 25-OH (D2 and D3) Today E03.8 - Other specified hypothyroidism, E13.9 - Other specified diabetes mellitus without complications, E55.9 - Vitamin D deficiency, unspecified, F41.1 - Generalized anxiety disorder, K21.9 - Gastro- esophageal reflux disease without esophagitis, K59.01 - Slow transit constipation, R42 - Dizziness and giddiness Microalbumin, Random (w Creat) Today E03.8 - Other specified hypothyroidism, E13.9 - Other specified diabetes mellitus without complications, E55.9 - Vitamin D deficiency, unspecified, F41.1 - Generalized anxiety disorder, K21.9 - Gastro-esophageal reflux disease without esophagitis, K59.01 - Slow transit constipation, R42 - Dizziness and giddiness Medications: New docusate sodium (Colace) 200 mg (2 x 100 mg) PO DAILY 180 caps 0RF 90 days Refilled levothyroxine 88 mcg PO DAILY 90 tabs 0RF Coding Level of Care Code Tele Est Pt Level 4 (29244) Diagnoses Diabetes 1.5, managed as type 2 E13.9 Chronic GERD K21.9 Vertigo R42 Other specified hypothyroidism E03.8 Anxiety, generalized F41.1 Vitamin D deficiency E55.9 Constipation by delayed colonic transit K59.01 Comment 3 pre visit, 17 with patient, 5 minute charting, 5 minute coordination of care
== END 2023-03-30 10:43 | disposition home or self-care (01) ==
PROVIDERS: PCP Internal Medicine; Visit Provider Internal Medicine
DX: E13.9 Other specified diabetes mellitus without complications (principal); K21.9 Gastro-esophageal reflux disease without esophagitis; R42 Dizziness and giddiness; E03.8 Other specified hypothyroidism; F41.1 Generalized anxiety disorder; E55.9 Vitamin D deficiency, unspecified; K59.01 Slow transit constipation
CPT/HCPCS: 99214

== ENCOUNTER → 2023-04-02 08:06 | Outpatient (REF) | payer OTHER, SELFPAY ==
--- NOTE | 2023-04-02 08:09 | HM_ITS ---
* Total monitoring time 7 days. * Underlying rhythm is sinus with an average ventricular rate of 60/Min. Range 43 to 101/Min. About 58% of the time, rate less than 60/Min. * Rare supraventricular and ventricular ectopy. * No significant pauses or AV blocks. * No patient markers or diary events. MTDD
--- NOTE | 2023-04-02 08:09 | CA_ITS ---
Transthoracic Echocardiogram Patient (Last, First, Middle): Marilyn Jimenez A Gender: Female Date of : 1950 Age: 73 Procedure Date: 04/02/2023 Procedure Type: Transthoracic Echocardiogram Location: OP Height: 152.4 cm Weight: 65.77 kg BSA: 1.63 m2 Heart Rate: 48 bpm BP: 122 / 65 mmHg Assistant Bookkeeper: MITCHEL Referring MD: Jean Coobms MD Symptoms: R00.2 - Palpitations Study Quality: Adequate ECG Rhythm: Bradycardia Conclusions: - The left ventricular systolic function is normal. The calculated ejection fraction is 62% by biplane method. - No obvious valvular pathology seen on this study. Findings Left Ventricle Normal left ventricular cavity size. There is mildly increased left ventricular wall thickness. The left ventricular systolic function is normal. The calculated ejection fraction is 62% by biplane method. There is no evidence of regional wall motion abnormalities. Diastolic function is normal for age. LV peak GLS -18.9%. Right Ventricle Normal right ventricular cavity size. There is mildly decreased right ventricular systolic function. Atria Both atria are normal in size. Aortic Valve There is a normal trileaflet aortic valve. There is no aortic valve stenosis. There is no aortic valve regurgitation. Mitral Valve The mitral valve appears normal. There is trace mitral valve regurgitation. There is no mitral valve stenosis. Pulmonic Valve The pulmonic valve is likely normal. Tricuspid Valve Normal tricuspid valve structure. There is trace tricuspid valve regurgitation. There is no evidence of pulmonary hypertension. Great Vessels The asc aorta is normal in size. Venous The inferior vena cava is normal in size and collapses greater than 50% with inspiration. Pericardium/Pleural There is no evidence of pericardial effusion. Prior Study Comparison No significant change compared to prior study dated: 06/09/2015. Recommendations, Care & Conclusions No obvious valvular pathology seen on this study. Measurements 2D Linear Measurements IVSd: 1.06 0.6-0.9/0.6-1.0 cm LVIDd: 3.98 3.9-5.3/4.2-5.9 cm LVIDd Index: 2.44 2.4-3.2/2.2-3.1 cm/m2 LVIDs: 2.76 2.0-3.6 cm LVPWd: 1.12 0.7-1.1 cm LA Diam: 3.60 2.7-3.8/3.0-4.0 cm LAIDs Index: 2.21 1.5-2.3 cm/m2 LV Mass: 177.53 67-162/88-224 g LV Mass Index: 108.91 43-95/49-115 g/m2 LVOT Diam: 1.80 3.0+(-)1.3 cm 2D Systolic Function EF 4C: 65.20 >55% EF 2C: 60.20 >55% EF BiP: 61.60 >55% Mitral Valve MV Pk E: 0.63 MV PK A: 0.71 MV Decel Time: 343.00 E/A: 0.90 E'Lateral: 7.18 E'Medial: 5.22 E/E' Med: 12.10 E/E' Lat: 8.80 PHT: 100.00 MVA PHT: 2.20 Decel [place]: 1.84 Aortic Valve AoV Pk Tray: 1.11 AoV Mn Tray: 0.81 AoV VTI: 0.31 AoV Pk Grad: 5.00 Aov Mn Grad: 3.00 KAREN Cont.VTI: 2.19 LVOT LVOT Pk Tray: 1.06 LVOT Mn Tray: 0.73 LVOT VTI: 0.27 LVOT Pk Grad: 4.00 LVOT Mn Grad: 2.00 LVOT Diam: 1.80 LVOT Area: 2.54 Diastolic Function MV Pk E: 0.63 MV Pk A: 0.71 E/A: 0.90 E'Medial: 5.22 E/E' Med: 12.10 E' Laterial: 7.18 E/E' Lat: 8.80 Right Ventricle TAPSE (mm): 16.70 TVS' Tray: 8.81 Tricuspid Valve TR Pk Tray: 1.91 TR Pk Grad: 15.00 RA Press: 3.00 RVSP: 18.00 Great Vessels Aorta Sinus of Valsalva: 3.40 2.0-3.5 cm Ao Asc: 3.60 2.1-3.4 cm Pulmonary Valve PV Pk Tray: 0.80 Peak PV Grad: 3.00 Updated in Other Vendor System with Status of Final Jean Coombs MD electronically signed on 04/02/2023 6:46:13 AM with status of Final
[2023-04-02 09:18] LABS: MANUAL DIFF FLAG NO
[2023-04-02 10:03] LABS: Basophils Percent Auto 0.4 % (0-2); Eosinophils Absolute Auto 0.1 X10*3/uL (0.0-0.4); Hematocrit 39.9 % (37.0-47.0); Hemoglobin 12.9 g/dl (12.0-16.0); Imm Gran Abs Auto 0.02 X10*3/uL (0.00-0.03); Imm Gran Pct Auto 0.3 % (0.0-0.4); Lymphocytes Absolute Auto 4.1 X10*3/uL (1.2-4.9); Lymphocytes Percent Auto 57.9 % (20-40); Mean Corpuscular HGB Conc 32.3 g/dl (31.0-35.0); Mean Corpuscular Hemoglobin 30.9 pg (27.0-33.0); Mean Corpuscular Volume 95.7 fL (80.0-98.0); Mean Platelet Volume 9.6 fL (9.4-12.3); Monocytes Absolute Auto 0.3 X10*3/uL (0.1-1.2); Monocytes Percent Auto 3.9 % (2-11); Neutrophils Absolute Auto 2.6 x10*3/uL (2.0-8.3); Neutrophils Percent Auto 36.5 % (45-73); Platelet Count 247 X10*3/uL (160-400); Red Blood Count 4.17 X10*6/uL (4.20-5.50); Red Cell Distribution Width 13.6 % (11.0-16.0); White Blood Count 7.1 X10*3/uL (4.8-10.8)
[2023-04-02 10:11] LABS: Estimated Average Glucose 120 mg/dL; Hemoglobin A1c % 5.8 % (<6.0)
[2023-04-02 10:39] LABS: Creatinine Urine 76.45 mg/dL; Microalbum/Creatinine Ratio Ur 11.7 ug/mg cr (<30)
[2023-04-02 10:59] LABS: Alanine Aminotransferase 23 U/L (0-31); Albumin Level 3.8 g/dL (3.5-5.0); Alkaline Phosphatase 63 U/L (39-117); Anion Gap 12 (12-20); Aspartate Amino Transferase 18 U/L (5-31); Bilirubin Total 0.3 mg/dL (0.0-1.0); Blood Urea Nitrogen 20 mg/dL (9-16); Calcium 9.6 mg/dL (8.4-10.2); Carbon Dioxide 30 mmol/L (22-29); Chloride 108 mmol/L (96-108); Cholesterol 171 mg/dL (<200); Estimated Glomerular Filt Rate > 60; Glucose Fasting 102 mg/dL (60-99); HDL Cholesterol 59 mg/dL (>40); LDL Cholesterol Calculated 97 mg/dL (<100); Potassium 4.5 mmol/L (3.3-5.1); Sodium 145 mmol/L (135-145); Total Protein 6.5 g/dL (6.5-8.0); Triglycerides 77 mg/dL (<150)
[2023-04-02 11:03] LABS: TSH reflex Free T4 0.17 uIU/mL (0.32-4.0)
[2023-04-02 11:06] LABS: Vitamin B12 877 pg/mL (200-900)
[2023-04-02 11:38] LABS: Free T4 (Free Thyroxine) 1.04 ng/dL (0.71-1.85)
[2023-04-06 13:38] LABS: Vitamin D 25-OH, D2 <4 ng/mL; Vitamin D 25-OH, D3 33 ng/mL; Vitamin D 25-OH, Total 33 ng/mL (30-100)
== END ==
LOC: HO.CARD 08:06
PROVIDERS: PCP Internal Medicine; Visit Provider Internal Medicine
DX: R00.2 Palpitations (principal); E55.9 Vitamin D deficiency, unspecified; E53.8 Deficiency of other specified B group vitamins; E66.09 Other obesity due to excess calories; F41.1 Generalized anxiety disorder; E13.9 Other specified diabetes mellitus without complications; K21.9 Gastro-esophageal reflux disease without esophagitis; R42 Dizziness and giddiness; E03.8 Other specified hypothyroidism; K59.01 Slow transit constipation
CPT/HCPCS: 36415; 80053; 80061; 82043; 82306; 82570; 82607; 83036; 84439; 84443; 85025; 93242; 93306; 93356

== ENCOUNTER → 2023-04-02 08:09 | Outpatient (BNV) | payer OTHER, SELFPAY | PROVIDERS: PCP Internal Medicine; Visit Provider Internal Medicine | DX: I47.20 Ventricular tachycardia, unspecified (principal) | CPT/HCPCS: 93244; 93306 ==

== ENCOUNTER 2023-04-27 10:11 | Outpatient (REF) | payer OTHER, SELFPAY ==
--- NOTE | ~2023-04-27 | MM_ITS ---
EXAMINATION: MM SCREENING DIGITAL BREAST TOMOSYNTHESIS, BILATERAL CLINICAL INFORMATION: Screening. Asymptomatic. COMPARISON: Mammography: This study is compared with prior exams dating back to 2018. TECHNIQUE: Digital breast tomosynthesis is performed in both the craniocaudal and mediolateral oblique views along with computer-aided detection (CAD). Synthesized 2D images are generated from the tomosynthesis. FINDINGS: There are scattered areas of fibroglandular density (ACR BI-RADS breast composition Category b). There are no significant masses, abnormal calcifications, or other abnormalities. There are bilateral benign calcifications. There is a tissue marker in the left breast from prior benign percutaneous biopsy. MM/MM tomosynthesis screening BI IMPRESSION: No mammographic evidence of malignancy. ASSESSMENT: BI-RADS BI-RADS 2 - Benign Findings RECOMMENDATION: Routine annual mammography screening. 1 year F/U This examination should not preclude the clinical evaluation of a suspicious palpable abnormality. This patient's information was entered into a reminder system with a target due date for their next mammogram.
== END 2023-04-27 10:12 | disposition home or self-care (01) ==
LOC: HO.MAMMO 10:11
PROVIDERS: PCP Internal Medicine; Visit Provider Internal Medicine
DX: Z12.31 Encounter for screening mammogram for malignant neoplasm of breast (principal)
CPT/HCPCS: 77063; 77067

== ENCOUNTER → 2023-04-27 10:15 | Outpatient (BNV) | payer OTHER, SELFPAY | PROVIDERS: PCP Internal Medicine; Visit Provider Radiology Diagnostic Radiology | DX: Z12.31 Encounter for screening mammogram for malignant neoplasm of breast (principal) | CPT/HCPCS: 77063; 77067 ==

== ENCOUNTER 2023-05-31 18:37 | Emergency (ER) | payer OTHER, SELFPAY ==
--- NOTE | ~2023-05-31 | XR_ITS ---
EXAMINATION: XR CHEST CLINICAL INFORMATION: Cough. COMPARISON: Chest radiograph 12/08/2021. TECHNIQUE: 2 views of the chest were obtained. FINDINGS: No significant abnormality is noted involving the heart, lungs, mediastinum, bony thorax or soft tissues. XR/XR chest 2V IMPRESSION: Unremarkable examination.
[2023-05-31 18:49] VITALS: BP 133/61; PULSE 60; RESP 18; TEMP 36.7; O2SAT 97; BMI 27.7
--- NOTE | 2023-05-31 18:49 | ED_ITS ---
HPI - URI/Sore Throat General Chief Complaint: Upper Respiratory Symptoms Stated Complaint: cough w/ phlem Time Seen by Provider: 05/31/23 19:44 Source: patient and family (Daughter) Mode of arrival: ambulatory History of Present Illness HPI Narrative: 73-year-old female presents with 2 days of cough, hoarse voice, sore throat and nasal congestion with intermittent diarrhea. Related Data Home Medications ?Medication ?Instructions ?Recorded ?Confirmed cholecalciferol (vitamin D3) 25 25 mcg PO DAILY 01/29/20 03/30/23 mcg (1,000 unit) capsule celecoxib 200 mg capsule 200 mg PO BID 04/01/21 03/30/23 magnesium 250 mg tablet 250 mg PO DAILY 06/06/22 03/30/23 Previous Rx's ?Medication ?Instructions ?Recorded blood sugar diagnostic (FreeStyle #100 ea 12/09/21 Lite Strips) lancets 28 gauge (FreeStyle #100 ea 12/09/21 Lancets) flash glucose scanning reader #1 ea 12/19/21 (FreeStyle Melva 2 [place]) flash glucose scanning reader #1 ea 12/20/21 (FreeStyle Melva 2 [place]) omeprazole 20 mg capsule,delayed 20 mg PO BID 90 days #180 caps 06/06/22 release tizanidine 4 mg tablet 4 mg PO Q8H PRN muscle spasticity 02/17/23 #14 tabs docusate sodium 100 mg capsule 200 mg (2 x 100 mg) PO DAILY 90 03/30/23 (Colace) days #180 caps levothyroxine 75 mcg tablet 75 mcg PO DAILY 90 days #90 tabs 04/02/23 cyanocobalamin (vitamin B-12) 500 500 mcg PO DAILY #90 tabs 05/02/23 mcg tablet (Vitamin B-12) Allergies Allergy/AdvReac Type Severity Reaction Status Date / Time aspirin [ASPIRIN] Allergy Intermediate STOMACH Verified 05/31/23 18:50 UPSET Review of Systems Review of Systems: Pertinent positives and negatives as stated in HPI [facility] Past Medical History Source: nursing notes reviewed Medical History Nausea & vomiting Vertigo Diabetes 1.5, managed as type 2 Chronic GERD Surgical History Status post excision of lipoma History of colonoscopy History of carpal tunnel release History of tubal ligation History of section Family History Family History Father Lung cancer Mother Melanoma Maternal Aunt Breast cancer Daughter No problems noted. Daughter No problems noted. Daughter No problems noted. Daughter No problems noted. Other Mental health disorder Social History Social History Household Members: None Housing: Condominium Alcohol intake: never Patient Tobacco Use Status: Never used Tobacco e-Cigarette/Vaping Use: Never Used Second Hand Smoke Exposure: No Advance Directives: No Advance Directives Information Provided: Yes Current occupational status: retired Cognitive needs: No Hearing needs: No Vision needs: Yes Physical Exam Vital Signs: Vital Signs: Last Vital Signs Temp 98.0 F 05/31/23 18:49 Pulse 60 05/31/23 18:49 Resp 18 05/31/23 18:49 BP 133/61 05/31/23 18:49 Pulse Ox 97 05/31/23 18:49 O2 Del Method Room Air 05/31/23 18:49 BMI result Body Mass Index 27.7 VITAL SIGNS: Reviewed. GENERAL: Well developed, well nourished, in no acute distress. HEAD: Normocephalic/atraumatic EYES: PERRLA, EOMI EARS: Ext canals without abnormality, TMs non-bulging and non-erythematous NOSE: Nares patent bilateral OROPHARYNX: no oral lesions noted, posterior pharynx clear and non-erythematous without noted tonsillar enlargement/erythema/exudates NECK: Supple, no adenopathy LUNGS: Normal breath sounds. No adventitious sounds or accessory muscle use. SpO2<97> CARDIOVASCULAR: Regular rate and rhythm without noted murmurs, no JVD or lower extremity edema. ABDOMEN: Soft, non-tender, non-distended with bowel sounds. MUSCULOSKELETAL: No tenderness, deformities, or effusions noted on gross ins pection. EXTREMITIES: No cyanosis, clubbing or edema. SKIN: Inspection of the skin reveals no rashes NEUROLOGIC: Alert and oriented x 4. Strength and sensation to light touch were grossly intact x 4. Course Course Course Narrative: This is a Rapid Medical Examination (RME) in triage, full HPI, ROS, assessment and plan per primary provider in the Main ED. 73 yo [place]an speaking female with history of [place], GERD, DM, hypothyroidism, anxiety who presents to the ER for evaluation of cough and raspy voice for the last 2 days. no SOB or chest pain. has had subjective fevers at home. VSS in triage Plan: CXR, viral PCR Medical Decision Making Medical Decision Making [facility] Narrative: 73-year-old female with history and clinical presentation, DDX: Viral illness, pneumonia. I reviewed all investigations viral testing is negative for influenza/RSV/COVID- 19. Chest x-ray negative for infiltrate or venous congestion. My interpretation is that patient has a viral illness, there is no evidence of fluid overload or acute pneumonia she is otherwise oxygenating well on room air without tachypnea or tachycardia. All results were discussed with her at bedside and she is otherwise discharged with instructions follow-up with primary care doctor. Differential Diagnosis Differential Diagnoses: The differential diagnosis associated with the presentation includes Please see the discussion above Admission/Observation Consideration of admission/observation: Escalation of care including admission/observation considered Please see the discussion above Lab Data [facility] Lab Attestation statement: I reviewed the patient's lab results. Please see the discussion above Labs: Lab Results 05/31/23 Range/Units 18:57 Influenza Type A (PCR) NEGATIVE (Negative) Influenza Type B (PCR) NEGATIVE (Negative) RSV RNA Qual (PCR) NEGATIVE (Negative) SARS-CoV-2 RNA (RT-PCR) NEGATIVE (Negative) Radiology Impression Discussion of test interpretation with radiology: I have reviewed the radiologist's reading. Radiologist Impression: Please see the discussion above External Record Review External record reviewed: Outpatient record, Prior outpatient labs and Prior outpatient radiology Chronic Conditions Patient?s care impacted by: Diabetes Critical Care Time Critical Care Time Critical Care Time: Yes Total Critical Care Time: 30 Attestation: I personally attest to this time spent taking care of the patient. Discharge Plan Discharge Clinical Impression: Viral syndrome Patient Disposition: Home, Self-Care Instructions: Viral Syndrome (ED) Additional Instructions: 1. Resume all home medications as prescribed. 2. I recommend sleeping in a somewhat inclined position to help reduce nighttime coughing, I also recommend [id number] NyQuil or the generic version for cough control. 3. I recommend [id number] Tylenol/ibuprofen as needed for body aches, headaches as well as temperatures greater than 100.4. Increase fluid hydration. Return to the ER for any worsening symptoms. Prescriptions: No Action (DME) lancets [FreeStyle Lancets] 28 gauge misc See Rx Instructions .Route Qty: 100 0RF Rx Instructions: Once a day (DME) FreeStyle Lite Strips Strip See Rx Instructions .Route Qty: 100 0RF Rx Instructions: Once a day (DME) FreeStyle Melva 2 [place] Misc See Rx Instructions .Route Qty: 1 0RF Rx Instructions: As directed (DME) FreeStyle Melva 2 [place] Misc See Rx Instructions .Route Qty: 1 0RF Rx Instructions: As directed levothyroxine 75 mcg tablet 75 mcg PO DAILY 90 Days Qty: 90 0RF cyanocobalamin (vitamin B-12) [Vitamin B-12] 500 mcg tablet 500 mcg PO DAILY Qty: 90 3RF tizanidine 4 mg tablet 4 mg PO Q8H PRN (Reason: muscle spasticity) Qty: 14 0RF cholecalciferol (vitamin D3) 25 mcg (1,000 unit) capsule 25 mcg PO DAILY docusate sodium [Colace] 100 mg capsule 200 mg PO DAILY 90 Days Qty: 180 0RF celecoxib 200 mg capsule 200 mg PO BID magnesium 250 mg tablet 250 mg PO DAILY omeprazole 20 mg capsule,delayed release(DR/EC) 20 mg PO BID 90 Days Qty: 180 1RF Referrals: Travis Carias MD [Primary Care Provider] - Print Language: Zimbabwean
[2023-05-31 19:42] LABS: Influenza A PCR NEGATIVE (Negative); Influenza B PCR NEGATIVE (Negative); Resp Syncy Virus RNA Qual PCR NEGATIVE (Negative); SARS COV2 PCR INHOUSE NEGATIVE (Negative)
[2023-05-31 20:56] VITALS: BP 133/61; PULSE 60; RESP 18; TEMP 36.7; O2SAT 97
== END 2023-05-31 20:57 | disposition home or self-care (01) ==
PROVIDERS: Physician Assistant; Emergency Provider Student in an Organized Health Care Education/Training Program; PCP Internal Medicine
DX: B34.9 Viral infection, unspecified (principal); R05.9 Cough, unspecified; J02.9 Acute pharyngitis, unspecified; R09.81 Nasal congestion; Z03.818 Encounter for observation for suspected exposure to other biological agents ruled out
CPT/HCPCS: 0241U; 71046; 99282; 99283

== ENCOUNTER 2023-06-29 18:06 | Emergency (ER) | payer OTHER, SELFPAY ==
--- NOTE | ~2023-06-29 | CT_ITS ---
CT head/brain wo IV con, CT facial bones wo IV con CLINICAL INFORMATION: Reason for Exam trauma COMPARISON: No prior CT scan available for comparison. TECHNIQUE: Department standard protocol. This CT examination was performed using dose optimization techniques as appropriate, variously including the following: *Automated exposure control *Adjustment of mA and/or kV according to patient size (this includes techniques or standardized protocols for targeted exams where dose is matched to indication/reason for exam; i.e. extremities or head) *Use of iterative reconstruction technique DLP: 569 mGy-cm FINDINGS: CEREBRAL HEMISPHERES: There is no evidence of intra-axial or extra-axial mass, hemorrhage or acute infarct. BRAIN PARENCHYMA: Normal braun-white matter differentiation. SUBDURAL SPACE: No bleed. BASAL GANGLIA AND PINEAL GLAND: Unremarkable VENTRICLES: Symmetric and normal in size. CEREBELLUM AND BRAINSTEM: No space-occupying mass, hemorrhage or acute infarct. CEREBELLOPONTINE ANGLES: No lesion found. ORBITS: No intraorbital mass. VESSELS: Unremarkable SKULL BASE: Unremarkable INCLUDED SINUSES AT SKULL BASE: Clear SKULL AND SKIN: No fracture or bone lesion found. EXAMINATION: CT FACIAL BONES CLINICAL INFORMATION: Trauma COMPARISON: None TECHNIQUE: CT facial bones Department standard protocol. This CT examination was performed using dose optimization techniques as appropriate, variously including the following: *Automated exposure control *Adjustment of mA and/or kV according to patient size (this includes techniques or standardized protocols for targeted exams where dose is matched to indication/reason for exam; i.e. extremities or head) *Use of iterative reconstruction technique FINDINGS : SKULL BASE: Included structures at skull base are normal. BONES: Skull base, orbital bones, nasal bones, maxillary bones, mandibles, zygomatic arches, and included cervical vertebrae are normal. ORBITS: Globes are symmetric. Orbital structures are normal. SALIVARY GLANDS: Unremarkable SINUSES: Clear CT/CT facial bones wo IV con IMPRESSION: 1. No CT evidence of intracranial bleed. 2. No CT evidence of facial bone fractures.
--- NOTE | ~2023-06-29 | XR_ITS ---
Examination: XR hand wrist RT, XR elbow LT 2V, XR elbow RT 2V, XR hand wrist LT Indication: fall, pain Comparison: No pertinent prior studies are currently available for comparison. Technique: 3 views of each elbow and 4 views of each hand obtained Findings: Left elbow: No elbow joint effusion. Bones are normal anatomic alignment with no acute fracture or dislocation. Surrounding soft tissues unremarkable. Right elbow: No significant elbow joint effusion. Again the bones are in normal anatomic alignment with no acute fracture or dislocation. Left wrist: Bones are normal anatomic alignment with no acute fracture dislocation minimal degenerative changes seen within the carpal bones and first carpal metacarpal joint space but no acute bony abnormality or significant soft tissue swelling. Right wrist: Bones are normal anatomic alignment with no acute fracture or dislocation. No bony destructive lesions or periosteal reaction. XR/XR hand wrist LT Impression: Mild degenerative changes but no acute fracture or dislocation seen.
--- NOTE | ~2023-06-29 | XR_ITS ---
Examination: XR hand wrist RT, XR elbow LT 2V, XR elbow RT 2V, XR hand wrist LT Indication: fall, pain Comparison: No pertinent prior studies are currently available for comparison. Technique: 3 views of each elbow and 4 views of each hand obtained Findings: Left elbow: No elbow joint effusion. Bones are normal anatomic alignment with no acute fracture or dislocation. Surrounding soft tissues unremarkable. Right elbow: No significant elbow joint effusion. Again the bones are in normal anatomic alignment with no acute fracture or dislocation. Left wrist: Bones are normal anatomic alignment with no acute fracture dislocation minimal degenerative changes seen within the carpal bones and first carpal metacarpal joint space but no acute bony abnormality or significant soft tissue swelling. Right wrist: Bones are normal anatomic alignment with no acute fracture or dislocation. No bony destructive lesions or periosteal reaction. XR/XR elbow RT 2V Impression: Mild degenerative changes but no acute fracture or dislocation seen.
--- NOTE | ~2023-06-29 | XR_ITS ---
Examination: XR hand wrist RT, XR elbow LT 2V, XR elbow RT 2V, XR hand wrist LT Indication: fall, pain Comparison: No pertinent prior studies are currently available for comparison. Technique: 3 views of each elbow and 4 views of each hand obtained Findings: Left elbow: No elbow joint effusion. Bones are normal anatomic alignment with no acute fracture or dislocation. Surrounding soft tissues unremarkable. Right elbow: No significant elbow joint effusion. Again the bones are in normal anatomic alignment with no acute fracture or dislocation. Left wrist: Bones are normal anatomic alignment with no acute fracture dislocation minimal degenerative changes seen within the carpal bones and first carpal metacarpal joint space but no acute bony abnormality or significant soft tissue swelling. Right wrist: Bones are normal anatomic alignment with no acute fracture or dislocation. No bony destructive lesions or periosteal reaction. XR/XR hand wrist RT Impression: Mild degenerative changes but no acute fracture or dislocation seen.
--- NOTE | ~2023-06-29 | CT_ITS ---
EXAMINATION: CT CERVICAL SPINE without contrast CLINICAL INFORMATION: Reason for Exam trauma COMPARISON: No prior CT available, TECHNIQUE: Computed axial sagittal and coronal images acquired using department's standard protocol. This CT examination was performed using dose optimization techniques as appropriate, variously including the following: *Automated exposure control *Adjustment of mA and/or kV according to patient size (this includes techniques or standardized protocols for targeted exams where dose is matched to indication/reason for exam; i.e. extremities or head) *Use of iterative reconstruction technique CONTRAST: None DLP: 286 mGy-cm FINDINGS: SKULL BASE: Visualized structures at skull base are normal, Included facial sinuses are clear, CERVICAL VERTEBRAE: Seven cervical vertebrae identified maintaining proper height and alignment, ATLANTOAXIAL AND ATLANTOOCCIPITAL ARTICULATION: Included occipital condyle are properly articulating with C1, measuring of C1 is intact. Proper articulation of the odontoid process with C1. POSTERIOR SPINES and lateral transverse processes: All are intact. DISCS: Narrowing of intervertebral disc spaces and developed small osteophyte from the edges of endplates encroaching on the neural foramen bilaterally at multiple levels. PREVERTEBRAL SOFT TISSUE: Within normal limits, no evidence of prevertebral soft tissue swelling. Visualized portion of the trachea larynx are normal. LUNG APICES: Included lung apices are clear bilaterally. Paravertebral soft tissue including LYMPH NODE AND SALIVARY GLANDS THYROID: Paravertebral soft tissue including cervical lymph nodes are within normal limits. Included paranasal and salivary unremarkable. CT/CT cervical spine wo IV con IMPRESSION: 1. No CT evidence of cervical spine fracture. 2. Narrowing of intervertebral disc spaces and developed small osteophyte from the edges of endplates encroaching on the neural foramen bilaterally at multiple levels.
--- NOTE | ~2023-06-29 | XR_ITS ---
Examination: XR hand wrist RT, XR elbow LT 2V, XR elbow RT 2V, XR hand wrist LT Indication: fall, pain Comparison: No pertinent prior studies are currently available for comparison. Technique: 3 views of each elbow and 4 views of each hand obtained Findings: Left elbow: No elbow joint effusion. Bones are normal anatomic alignment with no acute fracture or dislocation. Surrounding soft tissues unremarkable. Right elbow: No significant elbow joint effusion. Again the bones are in normal anatomic alignment with no acute fracture or dislocation. Left wrist: Bones are normal anatomic alignment with no acute fracture dislocation minimal degenerative changes seen within the carpal bones and first carpal metacarpal joint space but no acute bony abnormality or significant soft tissue swelling. Right wrist: Bones are normal anatomic alignment with no acute fracture or dislocation. No bony destructive lesions or periosteal reaction. XR/XR elbow LT 2V Impression: Mild degenerative changes but no acute fracture or dislocation seen.
--- NOTE | ~2023-06-29 | CT_ITS ---
CT head/brain wo IV con, CT facial bones wo IV con CLINICAL INFORMATION: Reason for Exam trauma COMPARISON: No prior CT scan available for comparison. TECHNIQUE: Department standard protocol. This CT examination was performed using dose optimization techniques as appropriate, variously including the following: *Automated exposure control *Adjustment of mA and/or kV according to patient size (this includes techniques or standardized protocols for targeted exams where dose is matched to indication/reason for exam; i.e. extremities or head) *Use of iterative reconstruction technique DLP: 569 mGy-cm FINDINGS: CEREBRAL HEMISPHERES: There is no evidence of intra-axial or extra-axial mass, hemorrhage or acute infarct. BRAIN PARENCHYMA: Normal braun-white matter differentiation. SUBDURAL SPACE: No bleed. BASAL GANGLIA AND PINEAL GLAND: Unremarkable VENTRICLES: Symmetric and normal in size. CEREBELLUM AND BRAINSTEM: No space-occupying mass, hemorrhage or acute infarct. CEREBELLOPONTINE ANGLES: No lesion found. ORBITS: No intraorbital mass. VESSELS: Unremarkable SKULL BASE: Unremarkable INCLUDED SINUSES AT SKULL BASE: Clear SKULL AND SKIN: No fracture or bone lesion found. EXAMINATION: CT FACIAL BONES CLINICAL INFORMATION: Trauma COMPARISON: None TECHNIQUE: CT facial bones Department standard protocol. This CT examination was performed using dose optimization techniques as appropriate, variously including the following: *Automated exposure control *Adjustment of mA and/or kV according to patient size (this includes techniques or standardized protocols for targeted exams where dose is matched to indication/reason for exam; i.e. extremities or head) *Use of iterative reconstruction technique FINDINGS : SKULL BASE: Included structures at skull base are normal. BONES: Skull base, orbital bones, nasal bones, maxillary bones, mandibles, zygomatic arches, and included cervical vertebrae are normal. ORBITS: Globes are symmetric. Orbital structures are normal. SALIVARY GLANDS: Unremarkable SINUSES: Clear CT/CT head/brain wo IV con IMPRESSION: 1. No CT evidence of intracranial bleed. 2. No CT evidence of facial bone fractures.
--- NOTE | 2023-06-29 18:21 | ED.GENADULT ---
HPI - General Adult General Chief complaint: Fall Stated complaint: [place] at the mall Time Seen by Provider: 06/29/23 18:40 Source: patient, family and RN notes reviewed Mode of arrival: ambulatory Limitations: language barrier (Patient declining interpreting services) History of Present Illness HPI narrative: 73-year-old female presents for evaluation after a fall. Patient reports that she was walking at the local mall She states that she was wearing sandals and ?I tripped over them and fell face forward. She struck the left side of her forehead Denies losing consciousness The patient reports that she has not on any anticoagulation or antiplatelet medications She reports injuring both hands/wrists and elbows She also reports neck pain Denies any headache, visual changes, nausea vomiting Denies any chest pain, abdominal pain, hip pain or lower extremity pain No other complaints or concerns at this time Related Data Home Medications ?Medication ?Instructions ?Recorded ?Confirmed cholecalciferol (vitamin D3) 25 25 mcg PO DAILY 01/29/20 03/30/23 mcg (1,000 unit) capsule celecoxib 200 mg capsule 200 mg PO BID 04/01/21 03/30/23 magnesium 250 mg tablet 250 mg PO DAILY 06/06/22 03/30/23 Previous Rx's ?Medication ?Instructions ?Recorded blood sugar diagnostic (FreeStyle #100 ea 12/09/21 Lite Strips) lancets 28 gauge (FreeStyle #100 ea 12/09/21 Lancets) flash glucose scanning reader #1 ea 12/19/21 (FreeStyle [place]va 2 [place]) flash glucose scanning reader #1 ea 12/20/21 (FreeStyle [place] 2 [place]) omeprazole 20 mg capsule,delayed 20 mg PO BID 90 days #180 caps 06/06/22 release tizanidine 4 mg tablet 4 mg PO Q8H PRN muscle spasticity 02/17/23 #14 tabs docusate sodium 100 mg capsule 200 mg (2 x 100 mg) PO DAILY 90 03/30/23 (Colace) days #180 caps levothyroxine 75 mcg tablet 75 mcg PO DAILY 90 days #90 tabs 04/02/23 cyanocobalamin (vitamin B-12) 500 500 mcg PO DAILY #90 tabs 05/02/23 mcg tablet (Vitamin B-12) Allergies Allergy/AdvReac Type Severity Reaction Status Date / Time aspirin [ASPIRIN] Allergy Intermediate STOMACH Verified 06/29/23 18:25 UPSET Review of Systems Constitutional: Constitutional: Denies body ache(s), Denies chills and Denies headache(s) Eyes: Eyes: Denies blurry vision and Denies change in vision ENT: Denies headache(s), Reports neck pain and Denies sore throat Cardiovascular: Cardiovascular: Denies chest pain and Denies dyspnea Respiratory: Respiratory: Denies chest congestion, Denies cough and Denies dyspnea Gastrointestinal: Gastrointestinal: Denies abdominal pain, Denies nausea and Denies vomiting Musculoskeletal: Musculoskeletal: Denies back pain, Reports arthralgias, Reports joint swelling, Reports limited range of motion and Reports neck pain Integumentary/Breasts: Skin/Breast: Denies rash and Reports wounds Neurologic: Denies headache(s) [facility] Past Medical History Medical History Nausea & vomiting Vertigo Diabetes 1.5, managed as type 2 Chronic GERD Surgical History Status post excision of lipoma History of colonoscopy History of carpal tunnel release History of tubal ligation History of section Family History Family History Father Lung cancer Mother Melanoma Maternal Aunt Breast cancer Daughter No problems noted. Daughter No problems noted. Daughter No problems noted. Daughter No problems noted. Other Mental health disorder Social History Social History Household Members: None Housing: Condominium Alcohol intake: never Patient Tobacco Use Status: Never used Tobacco e-Cigarette/Vaping Use: Never Used Second Hand Smoke Exposure: No Advance Directives: No Advance Directives Information Provided: No Do you have a plan to hurt others: No Plan Current occupational status: retired Cognitive needs: No Hearing needs: No Vision needs: Yes Physical Exam ED Vital Signs: Vital Signs - 24 hr 06/29/23 18:22 06/29/23 18:47 06/29/23 20:24 Temperature 98 F 97.8 F 98.1 F Pulse Rate 64 60 63 Respiratory Rate 20 18 Blood Pressure 130/52 L 122/55 L 124/58 L Pulse Oximetry 98 97 97 Oxygen Delivery Method Room Air Room Air Room Air BMI result Body Mass Index 26.9 Const General: healthy appearing, comfortable, no acute distress, alert and awake Nutritional Appearance: well nourished Orientation/consciousness: patient oriented x3 HENMT Other: Patient has left periorbital ecchymosis with minimal edema at the 2 o'clock position. This area is tender to palpation without step-offs or deformities. Head: Yes No palpable skull fracture present, No normocephalic and No atraumatic Eyes Periorbital: periorbital findings abnormal (See above for left periorbital ecchymosis) Eyelids: Yes eyelids normal Conjunctivae: conjunctivae normal Sclerae: sclerae normal Corneas: corneas normal Pupils: Equal, round and reactive pupils present EOM: EOMs intact bilaterally Neck Other: Minimal C-spine tenderness without step-offs or deformities. Resp Effort & Inspection: normal respiratory effort, able to speak in complete sentences and not labored GI Inspection: No distended Palpation (GI): Soft to palpation, not firm, nontender, no guarding and not rigid Skin Other: Patient has minor skin tear/abrasions to the bilateral elbows as well as the palms of both hands. No deep lacerations General skin exam: elasticity normal Neuro General: patient oriented x3 Cranial nerves: Yes CN's II-XII intact bilaterally, Yes Equal, round and reactive pupils present and Yes Bilaterally intact EOM present Cognition (Neuro): normal cognition Extrem Other: Patient has tenderness to both elbows without obvious deformity. There is no shoulder or wrist tenderness bilaterally. There is some tenderness to the left thumb with some ecchymosis overlying this area. Course Course Course Narrative: This is a rapid medical exam performed by Uri Montalvo NP: Additional HPI, ROS, PE not included below will be deferred to primary provider. Patient is a 73-year-old female presenting to the emergency department with complaint of pain to hands, elbows after a fall prior to arrival. States she was leaving the mall when her slipper came off causing her to fall. Denies head strike of loss of consciousness. Not anticoagulated, daughter states last tdap 6-7 years ago. Plan: xrays, tdap Medications Administered Discontinued Medications Generic Name Dose Route Start Last Admin Trade Name Freq PRN Reason Stop Dose Admin Acetaminophen 975 mg 06/29/23 19:05 06/29/23 19:35 Acetaminophen 325 Mg Tablet PO 06/29/23 19:06 975 mg ONCE ONE Administration Diphtheria/Tetanus/Acell Pertussis 0.5 ml 06/29/23 18:25 06/29/23 20:06 Diphth,Pertus(Acell),Tet Adult 0.5 Ml Syringe IM 06/29/23 18:26 0.5 ml .ONCE ONE Administration Medical Decision Making Medical Decision Making MDM Narrative: 73-year-old female presents for evaluation of a nonsyncopal fall. Plan for CT scan of the brain, cervical spine and facial bones given the head strike. She has not anticoagulated, she has a reassuring neurologic exam so I have a lower suspicion for intracranial hemorrhage. Given the fall we will also get x-rays of both elbows, hands and wrists. She has minor wounds that do not require closure. Differential Diagnosis Differential Diagnoses: The differential diagnosis associated with the presentation includes Elbow sprain Contusion Hand sprain Wrist fracture Intracranial hemorrhage Facial fracture Cervical fracture Cervical strain Lab Data Labs: Lab Results 06/29/23 Range/Units 19:08 POC Glucose 101 (60-115) mg/dL Independent Interpretation I performed an independent interpretation of an: Plain X-Ray (No obvious hand or wrist fractures) Interpretation: No acute intracranial hemorrhage, mass effect or midline shift Radiology Impression Discussion of test interpretation with radiology: I have reviewed the radiologist's reading. Radiologist Impression: XR/XR hand wrist RT Impression: Mild degenerative changes but no acute fracture or dislocation seen. XR/XR hand wrist LT Impression: Mild degenerative changes but no acute fracture or dislocation seen. Discharge Plan Discharge Clinical Impression: Fall, Contusion of face, Abrasion Patient Disposition: Home, Self-Care Instructions: Fall Prevention (ED), Facial Contusion (ED) Additional Instructions: Your x-rays did not show any evidence of fractures. Your CT scans did not show any evidence of traumatic injury either You may apply topical antibiotic to the small wounds Use ibuprofen/Tylenol for pain and swelling Follow-up with your primary doctor Return for new or worsening symptoms Prescriptions: No Action (DME) lancets [FreeStyle Lancets] 28 gauge misc See Rx Instructions .Route Qty: 100 0RF Rx Instructions: Once a day (DME) FreeStyle Lite Strips Strip See Rx Instructions .Route Qty: 100 0RF Rx Instructions: Once a day (DME) FreeStyle Melva 2 [place] Misc See Rx Instructions .Route Qty: 1 0RF Rx Instructions: As directed (DME) FreeStyle Melva 2 [place] Misc See Rx Instructions .Route Qty: 1 0RF Rx Instructions: As directed levothyroxine 75 mcg tablet 75 mcg PO DAILY 90 Days Qty: 90 0RF cyanocobalamin (vitamin B-12) [Vitamin B-12] 500 mcg tablet 500 mcg PO DAILY Qty: 90 3RF tizanidine 4 mg tablet 4 mg PO Q8H PRN (Reason: muscle spasticity) Qty: 14 0RF cholecalciferol (vitamin D3) 25 mcg (1,000 unit) capsule 25 mcg PO DAILY docusate sodium [Colace] 100 mg capsule 200 mg PO DAILY 90 Days Qty: 180 0RF celecoxib 200 mg capsule 200 mg PO BID magnesium 250 mg tablet 250 mg PO DAILY omeprazole 20 mg capsule,delayed release(DR/EC) 20 mg PO BID 90 Days Qty: 180 1RF Print Language: Albanian
[2023-06-29 18:22] VITALS: BP 130/52; PULSE 64; RESP 20; TEMP 36.6; O2SAT 98; BMI 26.9
[2023-06-29 18:47] VITALS: BP 122/55; PULSE 60; TEMP 36.6; O2SAT 97
[2023-06-29 19:11] LABS: Glucose, Whole Blood 101 mg/dL (60-115)
[2023-06-29] MEDS: Acetaminophen 325 MG TABLET 975 MG PO (19:35)
[2023-06-29] MEDS: Diphth,Pertus(ACell),Tet Adult 0.5 ML SYRINGE IM (20:06)
[2023-06-29 20:24] VITALS: BP 124/58; PULSE 63; RESP 18; TEMP 36.7; O2SAT 97
[2023-06-29 20:52] VITALS: BP 124/58; PULSE 63; RESP 18; TEMP 36.7; O2SAT 97
== END 2023-06-29 20:53 | disposition home or self-care (01) ==
PROVIDERS: Emergency Provider Emergency Medicine; PCP Internal Medicine
DX: S09.90XA Unspecified injury of head, initial encounter (principal); S00.81XA Abrasion of other part of head, initial encounter; S89.92XA Unspecified injury of left lower leg, initial encounter; S69.92XA Unspecified injury of left wrist, hand and finger(s), initial encounter; M25.552 Pain in left hip; M25.551 Pain in right hip; R51.9 Headache, unspecified; M54.2 Cervicalgia; W01.10XA Fall on same level from slipping, tripping and stumbling with subsequent striking against unspecified object, initial encounter; Y93.9 Activity, unspecified; Y92.59 Other trade areas as the place of occurrence of the external cause; Y99.8 Other external cause status; Z79.899 Other long term (current) drug therapy; Z23 Encounter for immunization
CPT/HCPCS: 70450; 70486; 72125; 73070; 73110; 73130; 82947; 90471; 90715; 99283; 99284

== ENCOUNTER 2023-12-12 09:09 | Outpatient (AMB) | payer OTHER, SELFPAY ==
[2023-12-12 09:15] VITALS: BP 120/68; PULSE 60; O2SAT 98; BMI 27.8
--- NOTE | 2023-12-12 09:15 | A.OFFPC_ITS ---
Vital Signs 12/12/23 09:15 Height 5 ft Weight 142 lb 6 oz BMI 27.8 BP 120/68 Blood Pressure Location Rt brachial Position Sitting Pulse 60 Pulse Source Pulse Oximeter Pulse Oximetry (%) 98 Oxygen Delivery Method Room Air Intake Visit Reasons: Annual PE Allergies aspirin [ASPIRIN] Allergy (Intermediate, Verified 12/12/23 09:18) STOMACH UPSET Medication List - Last Reconciled 12/12/23 by Travis Carias MD blood sugar diagnostic (FreeStyle Lite Strips) Once a day celecoxib 200 mg PO BID cholecalciferol (vitamin D3) 25 mcg PO DAILY cyanocobalamin (vitamin B-12) (Vitamin B-12) 500 mcg PO DAILY docusate sodium (Colace) 200 mg (2 x 100 mg) PO DAILY 90 days flash glucose scanning reader (FreeStyle Melva 2 [place]) As directed flash glucose scanning reader (FreeStyle Melva 2 [place]) As directed lancets (FreeStyle Lancets) Once a day levothyroxine 75 mcg PO DAILY 90 days magnesium 250 mg PO DAILY omeprazole 20 mg PO BID 90 days tizanidine 4 mg PO Q8H PRN Tobacco use date assessed: 12/12/23 Fall risk assessment: No Falls in past year Last assessed Fall Risk: 12/12/23 Dental Screening Dental Screen Date: 12/12/23 Did you have a dental visit in the last 12 months?: No Did you have a dental problem in the last 6 months where you did not have access to dental care?: No Was dental information given to patient?: Patient has dentist HPI Annual PE HPI Details Patient is 72-year-old female came in today for her physical exam Colonoscopy was in 2015 she is not due till 2025 Mammogram is up-to-date Eye exam is up-to-date early this year Anxiety disorder:? Patient is on Lexapro 20 mg, doing well Diabetes mellitus:? Diet controlled, hemoglobin A1c is stable BMI is still elevated need to lose weight Need new referral to Podiatry Bladder incontinence still going on off and on Due for labs today [facility]thritis treatment [facility] [place] Dr. Otto Bernal is through them now Other providers patient is seeing Urology, Dr Rosario [facility] Continue supplement vitamin B12 and vitamin-D, Follow-up 4 months ??? [facility] Medical History Nausea & vomiting Vertigo Diabetes 1.5, managed as type 2 Chronic GERD Surgical History Status post excision of lipoma History of colonoscopy History of carpal tunnel release History of tubal ligation History of section Family History Father Lung cancer Mother Melanoma Maternal Aunt Breast cancer Daughter No problems noted. Daughter No problems noted. Daughter No problems noted. Daughter No problems noted. Other Mental health disorder Social History Household Members: None Housing: Condominium Alcohol intake: never Patient Tobacco Use Status: Never used Tobacco e-Cigarette/Vaping Use: Never Used Second Hand Smoke Exposure: No service: No Current occupational status: retired Cognitive needs: No Hearing needs: No Vision needs: Yes Questionnaire PHQ-9 Over the last 2 weeks, how often have you been bothered by any of the following problems? 1. Little interest or pleasure in doing things: not at all 2. Feeling down, depressed, or hopeless: several days 3. Trouble falling or staying asleep, or sleeping too much: not at all 4. Feeling tired or having little energy: not at all 5. Poor appetite or overeating: several days 6. Feeling bad about yourself - or that you are a failure or have let yourself or your family down: not at all 7. Trouble concentrating on things, such as reading the newspaper or watching television: not at all 8. Moving or speaking so slowly that other people could have noticed. Or the opposite - being so fidgety or restless that you have been moving around a lot more than usual: not at all 9. Thoughts that you would be better off or of hurting yourself in some way: not at all Total score: 2 Depression Screening Interpretation: Negative Depression Screening Done: Yes 22318 - PHQ-9 Billing: Yes Source: Developed by Drs. Pablo Estrada, Kelley Cerna, Pk Fofana and colleagues, with an educational harpreet from [employer]. Thrive Questionnaire Date Thrive assessed: 12/12/23 I am a: Patient What is your living situation today?: I have a steady place to live Within the past 12 months, did the food you bought not last and you didn't have the money to get more?: Sometimes True Within the past 12 months, did you worry whether your food would run out before you got money to buy more?: Sometimes True Do you have trouble paying for medicines?: No Do you have trouble getting transportation to medical appointments?: No Do you have trouble paying your heating and electricity bill?: Yes Do you have trouble taking care of your child, family member or friend?: No Do you have trouble with day-to-day activities such as bathing, preparing meals, shopping, managing finances, etc.?: I choose not to answer this question Are you currently unemployed and looking for a job?: I choose not to answer this question Are you interested in more education?: I choose not to answer this question Please select the resources that you would like help with: Food and Utilities Currently or been in a relationship where the following occur: I choose not to answer THRIVE Score: 3 AUDIT C Alcohol Use Questionnaire (AUDIT-C) 1. How often do you have a drink containing alcohol?: Never 3. How often do you have six or more drinks on one occasion?: Never Total Score: 0 Score Reviewed/Action Taken: Yes COLE-7 AMB Questionnaire COLE-7 Date COLE - 7 assessed: 12/12/23 Feeling nervous, anxious, or on edge: 0 = Not at all Not being able to stop or control worryin = Not at all Worrying too much about different things: 0 = Not at all Trouble relaxin = Not at all Being so restless that it is hard to sit still: 0 = Not at all Becoming easily annoyed or irritable: 0 = Not at all Feeling afraid as if something awful might happen: 0 = Not at all Total COLE-7 score (0-4 normal; 5-9 mild; 10-14 moderate; 15-21 severe): 0 Source: Developed by Drs. Pablo Estrada, Kelley Cerna, Pk Fofana and colleagues, with an educational harpreet from [employer]. COLE-7 Assessment Billing COLE-7 Assessment Tool: COLE-7 Assessment 28731 Review of Systems Const Denies chills, Denies fever(s) and Denies headache(s) Eyes Denies blurry vision ENT Denies headache(s), Denies nasal discharge, Denies nasal obstruction, Denies odynophagia and Denies sinus pain Card Denies chest pain at rest and Denies chest pain with activity Resp Denies cough and Denies hemoptysis GI Denies diarrhea, Denies odynophagia, Denies vomiting and Denies hematemesis Reports as per HPI Musc Denies abnormal gait Skin/Breast Reports as per HPI Neuro Denies Neuro-related abnormal movements, Denies Abnormal speech present, Denies abnormal gait and Denies headache(s) Psych Denies mood swings and Denies paranoia Endo Reports as per HPI Juliano/Lymph Reports as per HPI Aller/Immun Reports as per HPI Physical exam (Primary Care) Vital Signs: Last Vital Signs BP 120/68 12/12/23 09:15 BMI result Body Mass Index 27.8 Tobacco/Smoking Status: Tobacco use Status Tobacco use date assessed 12/12/23 12/12/23 09:19 Patient Tobacco Use Status Never used Tobacco 12/12/23 09:19 e-Cigarette/Vaping Use Never Used 12/12/23 09:19 PHQ-9: PHQ-9 Score PHQ-9: Total score 2 12/12/23 09:26 Depression Screening Interpretation: Negative Thrive Assessment: Date of Thrive Assessment Date Thrive assessed 12/12/23 12/12/23 09:19 Currently or been in a relationship where the following occur: I choose not to answer Const General: cooperative, comfortable and no acute distress Orientation/consciousness: patient oriented x3 HENMT Head: Yes normocephalic and Yes atraumatic Eyes General: appearance normal, both eyes and all related structures Pupils: Equal, round and reactive pupils present EOM: EOMs intact bilaterally Neck Neck: Yes supple and No lymphadenopathy Thyroid: Thyroid normal Lymphatic: no lymphadenopathy noted Chest Breast/axilla palpation: normal palpation of the breasts Resp Effort & Inspection: normal respiratory effort and able to speak in complete sentences Auscultation: clear to auscultation bilaterally Cardio Heart sounds: S1 normal heart sound present and S2 normal heart sound present GI Palpation (GI): Soft to palpation and nontender Auscultation: normal bowel sounds General: Yes no CVA tenderness Back/Spine/Pelvis Back: no CVA tenderness Skin General skin exam: elasticity normal and turgor normal Neuro General: patient oriented x3 and gait normal Cranial nerves: Yes Equal, round and reactive pupils present Speech: No Abnormal speech present Coordination: Romberg test negative Extrem General: Yes normal exam except as noted and No edema Coding Level of Care Code Est Pt Level 4 (90425) Est Pt Prev Care >65y(66260) Diagnoses Encounter for general adult medical examination with abnormal findings Z00.01 Diabetes 1.5, managed as type 2 E13.9 Chronic GERD K21.9 Other specified hypothyroidism E03.8 Bladder disorder N32.9 Vitamin B12 deficiency E53.8 Vitamin D deficiency E55.9 Additional Codes COLE-7 Assessment Billing - COLE-7 Assessment Tool: COLE-7 Assessment 06776 ([id number]) Assessment & Plan Assessment & Plan (1) Encounter for general adult medical examination with abnormal findings: Code(s): Z00.01 - Encounter for general adult medical examination with abnormal findings Category: Medical (2) Diabetes 1.5, managed as type 2: Code(s): E13.9 - Other specified diabetes mellitus without complications Category: Medical (3) Chronic GERD: Code(s): K21.9 - Gastro-esophageal reflux disease without esophagitis Category: Medical (4) Other specified hypothyroidism: Code(s): E03.8 - Other specified hypothyroidism Category: Medical (5) Bladder disorder: Code(s): N32.9 - Bladder disorder, unspecified Category: Medical (6) Vitamin B12 deficiency: Code(s): E53.8 - Deficiency of other specified B group vitamins Category: Medical (7) Vitamin D deficiency: Code(s): E55.9 - Vitamin D deficiency, unspecified Category: Medical Plan Patient is 72-year-old female came in today for her physical exam Colonoscopy was in 2016 she is not due till 2025 Mammogram is up-to-date Eye exam is up-to-date early this year Anxiety disorder:? Patient is on Lexapro 20 mg, doing well Diabetes mellitus:? Diet controlled, hemoglobin A1c is stable BMI is still elevated need to lose weight Need new referral to Podiatry Bladder incontinence still going on off and on Due for labs today Arthritis treatment through [facility] [place] Dr. Otto Bernal is through them now Other providers patient is seeing Urology, Dr Clov Gastroenter[facility] Continue supplement vitamin B12 and vitamin-D, Follow-up 4 months ??? Orders: Orders Magnesium Today E03.8 - Other specified hypothyroidism, E13.9 - Other specified diabetes mellitus without complications, E53.8 - Deficiency of other specified B group vitamins, E55.9 - Vitamin D deficiency, unspecified, K21.9 - Gastro- esophageal reflux disease without esophagitis, N32.9 - Bladder disorder, unspecified, Z00.01 - Encounter for general adult medical examination with abnormal findings Hemoglobin A1c Today E03.8 - Other specified hypothyroidism, E13.9 - Other specified diabetes mellitus without complications, E53.8 - Deficiency of other specified B group vitamins, E55.9 - Vitamin D deficiency, unspecified, K21.9 - Gastro-esophageal reflux disease without esophagitis, N32.9 - Bladder disorder, unspecified, Z00.01 - Encounter for general adult medical examination with abnormal findings TSH reflex Free T4 Today E03.8 - Other specified hypothyroidism, E13.9 - Other specified diabetes mellitus without complications, E53.8 - Deficiency of other specified B group vitamins, E55.9 - Vitamin D deficiency, unspecified, K21.9 - Gastro-esophageal reflux disease without esophagitis, N32.9 - Bladder disorder, unspecified, Z00.01 - Encounter for general adult medical examination with abnormal findings Lipid Panel Today E03.8 - Other specified hypothyroidism, E13.9 - Other specified diabetes mellitus without complications, E53.8 - Deficiency of other specified B group vitamins, E55.9 - Vitamin D deficiency, unspecified, K21.9 - Gastro-esophageal reflux disease without esophagitis, N32.9 - Bladder disorder, unspecified, Z00.01 - Encounter for general adult medical examination with abnormal findings Microalbumin, Random (w Creat) Today E03.8 - Other specified hypothyroidism, E13.9 - Other specified diabetes mellitus without complications, E53.8 - Deficiency of other specified B group vitamins, E55.9 - Vitamin D deficiency, unspecified, K21.9 - Gastro-esophageal reflux disease without esophagitis, N32.9 - Bladder disorder, unspecified, Z00.01 - Encounter for general adult medical examination with abnormal findings Complete Blood Count Auto Diff Today E03.8 - Other specified hypothyroidism, E13.9 - Other specified diabetes mellitus without complications, E53.8 - Deficiency of other specified B group vitamins, E55.9 - Vitamin D deficiency, unspecified, K21.9 - Gastro-esophageal reflux disease without esophagitis, N32.9 - Bladder disorder, unspecified, Z00.01 - Encounter for general adult medical examination with abnormal findings Comprehensive [place]. Panel Fast Today E03.8 - Other specified hypothyroidism, E13.9 - Other specified diabetes mellitus without complications, E53.8 - Deficiency of other specified B group vitamins, E55.9 - Vitamin D deficiency, unspecified, K21.9 - Gastro-esophageal reflux disease without esophagitis, N32.9 - Bladder disorder, unspecified, Z00.01 - Encounter for general adult medical examination with abnormal findings Vitamin D 25-OH (D2 and D3) Today E03.8 - Other specified hypothyroidism, E13.9 - Other specified diabetes mellitus without complications, E53.8 - Deficiency of other specified B group vitamins, E55.9 - Vitamin D deficiency, unspecified, K21.9 - Gastro-esophageal reflux disease without esophagitis, N32.9 - Bladder disorder, unspecified, Z00.01 - Encounter for general adult medical examination with abnormal findings Vitamin B12 Today E03.8 - Other specified hypothyroidism, E13.9 - Other specified diabetes mellitus without complications, E53.8 - Deficiency of other specified B group vitamins, E55.9 - Vitamin D deficiency, unspecified, K21.9 - Gastro-esophageal reflux disease without esophagitis, N32.9 - Bladder disorder, unspecified, Z00.01 - Encounter for general adult medical examination with abnormal findings Referrals Podiatry Referral E13.9 - Other specified diabetes mellitus without complications
== END 2023-12-12 09:42 | disposition home or self-care (01) ==
PROVIDERS: PCP Internal Medicine; Visit Provider Internal Medicine
DX: Z00.00 Encounter for general adult medical examination without abnormal findings (principal); E13.9 Other specified diabetes mellitus without complications; K21.9 Gastro-esophageal reflux disease without esophagitis; E03.8 Other specified hypothyroidism; N32.9 Bladder disorder, unspecified; E53.8 Deficiency of other specified B group vitamins; E55.9 Vitamin D deficiency, unspecified

== ENCOUNTER → 2023-12-12 09:09 | Outpatient (BNVA) | payer OTHER, SELFPAY | PROVIDERS: PCP Internal Medicine; Visit Provider Internal Medicine ==

== ENCOUNTER 2023-12-12 09:36 | Outpatient (REF) | payer OTHER, SELFPAY ==
[2023-12-12 13:23] LABS: MANUAL DIFF FLAG NO
[2023-12-12 13:39] LABS: Basophils Percent Auto 0.4 % (0-2); Eosinophils Absolute Auto 0.1 X10*3/uL (0.0-0.4); Eosinophils Percent Auto 1.1 % (0-4); Hematocrit 39.8 % (37.0-47.0); Hemoglobin 12.9 g/dl (12.0-16.0); Imm Gran Abs Auto 0.01 X10*3/uL (0.00-0.03); Imm Gran Pct Auto 0.1 % (0.0-0.4); Lymphocytes Absolute Auto 4.2 X10*3/uL (1.2-4.9); Lymphocytes Percent Auto 58.4 % (20-40); Mean Corpuscular HGB Conc 32.4 g/dl (31.0-35.0); Mean Corpuscular Hemoglobin 31.9 pg (27.0-33.0); Mean Corpuscular Volume 98.5 fL (80.0-98.0); Mean Platelet Volume 9.7 fL (9.4-12.3); Monocytes Absolute Auto 0.3 X10*3/uL (0.1-1.2); Neutrophils Absolute Auto 2.6 x10*3/uL (2.0-8.3); Platelet Count 245 X10*3/uL (160-400); Red Blood Count 4.04 X10*6/uL (4.20-5.50); Red Cell Distribution Width 13.2 % (11.0-16.0); White Blood Count 7.2 X10*3/uL (4.8-10.8)
[2023-12-12 13:47] LABS: Estimated Average Glucose 117 mg/dL; Hemoglobin A1C 126.3209 umol/L; Hemoglobin A1c % 5.7 % (<6.0); Total Hemoglobin (HGBA1C) 3297.3989 umol/L
[2023-12-12 13:51] LABS: Alanine Aminotransferase 20 U/L (0-31); Albumin Level 3.9 g/dL (3.5-5.0); Alkaline Phosphatase 58 U/L (39-117); Anion Gap 11 (12-20); Aspartate Amino Transferase 27 U/L (5-31); Bilirubin Total 0.3 mg/dL (0.0-1.0); Blood Urea Nitrogen 18 mg/dL (9-16); Calcium 9.8 mg/dL (8.4-10.2); Carbon Dioxide 29 mmol/L (22-29); Chloride 109 mmol/L (96-108); Cholesterol 205 mg/dL (<200); Estimated Glomerular Filt Rate > 60; Glucose Fasting 107 mg/dL (60-99); HDL Cholesterol 71 mg/dL (>40); LDL Cholesterol Calculated 116 mg/dL (<100); Magnesium 2.4 mg/dL (1.6-2.6); Potassium 4.1 mmol/L (3.3-5.1); Sodium 145 mmol/L (135-145); Total Protein 6.7 g/dL (6.5-8.0); Triglycerides 90 mg/dL (<150)
[2023-12-12 14:07] LABS: TSH reflex Free T4 1.74 uIU/mL (0.32-4.0)
[2023-12-12 14:08] LABS: Vitamin B12 822 pg/mL (200-900)
[2023-12-12 14:17] LABS: Creatinine Urine 124.85 mg/dL; Microalbum/Creatinine Ratio Ur 12.8 ug/mg cr (<30)
[2023-12-17 15:03] LABS: Vitamin D 25-OH, D2 <4 ng/mL; Vitamin D 25-OH, D3 35 ng/mL; Vitamin D 25-OH, Total 35 ng/mL (30-100)
== END 2023-12-12 09:37 | disposition home or self-care (01) ==
LOC: HO.HMGCLDS 09:36
PROVIDERS: PCP Internal Medicine; Visit Provider Internal Medicine
DX: Z00.01 Encounter for general adult medical examination with abnormal findings (principal); E55.9 Vitamin D deficiency, unspecified; E53.8 Deficiency of other specified B group vitamins; E03.8 Other specified hypothyroidism; N32.9 Bladder disorder, unspecified; E13.9 Other specified diabetes mellitus without complications; K21.9 Gastro-esophageal reflux disease without esophagitis
CPT/HCPCS: 36415; 80053; 80061; 82043; 82306; 82570; 82607; 83036; 83735; 84443; 85025; 96127; 99397

== ENCOUNTER 2024-01-02 16:04 | Outpatient (REF) | payer OTHER, SELFPAY | END 2024-01-02 16:05 | disposition home or self-care (01) | LOC: HO.XRAY 16:04 | PROVIDERS: PCP Internal Medicine; Visit Provider Nurse Practitioner | DX: M54.9 Dorsalgia, unspecified (principal); R10.9 Unspecified abdominal pain; K21.9 Gastro-esophageal reflux disease without esophagitis | CPT/HCPCS: 71046; 72070; 72100 ==

== ENCOUNTER → 2024-01-02 16:04 | Outpatient (AMB) | payer OTHER, SELFPAY ==
[2024-01-02 16:05] VITALS: BP 121/54; PULSE 62; BMI 27.9
--- NOTE | 2024-01-02 16:05 | A.OFFVIS_ITS ---
Vital Signs 01/02/24 16:05 Height 5 ft Weight 142 lb 13.753 oz BMI 27.9 BP 121/54 L Blood Pressure Location Lt brachial Position Sitting Pulse 62 Intake Visit Reasons: Follow up GERD, [place] Intake Note: Marilyn returns in follow up of [place] and GERD. CC: Patient denies having any new GI concerns or symptoms today. Allergies aspirin [ASPIRIN] Allergy (Intermediate, Verified 04/15/24 08:52) STOMACH UPSET HPI HPI Follow up GERD, [place]: Details: ssessment & Plan (1) [place] (nonalcoholic steatohepatitis): Comment: OF 11/2022 I AM RETURNING HER TO HER PRIMARY CARE PROVIDER TO BE MONITORED AT NORMAL SCREENING INTERVALS AND RETURN TO US ONLY FOR TRANSAMINASES RISE TO GREATER THAN 2 TIMES THE NORMAL LIMIT. Baseline 12/2018 normal LFT s, US some underlaying fibrosis, AFP not elevated, autoimmune workup negative, hepatitis a B and C negative. Baseline. Laboratory Tests 12/28/20 Hemoglobin A1c % 6.3 Total Bilirubin 0.4 Direct Bilirubin 0.2 AST 18 ALT 21 Alkaline Phosphatase 63 Alpha Fetoprotein 2.7 TSH 0.52 ULTRASOUND OF THE ABDOMEN WITH ELASTOGRAPHY 07/21/22 (F-0) CURRENT LABS 06/07/22 Plt Count 296 Direct Bilirubin 0.1 Alpha Fetoprotein 2.2 07/19/22 the Total Bilirubin 0.4 Direct Bilirubin AST 18 ALT 21 Alkaline Phosphatase 62 ULTRASOUND OF THE ABDOMEN WITH ELASTOGRAPHY 07/21/22 (F-0) IMPRESSION: 1. Impression: Echogenic liver probably representing fatty infiltration. 2. Liver elastography: Adequate liver sampling. In the absence of other known clinical signs, rules out compensated advanced chronic liver disease. Code(s): K75.81 - Nonalcoholic steatohepatitis ([place]) Plan: [place] [place] #dtr translates per pt request She has been having intermittent sharp pains in the RUQ that feels like little stabs and is at times worse with overeating, but also is worse with sleeping on her right side. She says she is moving her bowels well and does not feel like this is related to constipation. When she has it at 3/10 and is very brief in duration. We discussed various things she should look for that may help me tease out what this is including whether it is related to time of day, types of food eaten, if it feels better after passing gas etc.. She will try to pay closer attention to it and should it worsen she is welcome to return to my office for better workup. Her GERD continues to be well controlled on her omeprazole. We review her labs and her liver looks extremely good, within elastography reading F-0 and normal transaminases I do not think we need to monitor her every 6 months. Controlling her weight her diabetes has gone a long wait to protecting her liver. At this point I think she can be monitored by her primary care provider through normal screenings and return to [facility] if the transaminases rise to more than 2 times the normal limit. (2) Chronic GERD: Code(s): K21.9 - Gastro-esophageal reflux disease without esophagitis TODAY'S VISIT [place] [place] #Dtr translates per pt request Her GERD continues to be well controlled on her omeprazole. She says now that her mild sharp stabbing pain is only when she lays on her right side. Since this sounds more musculoskeletal than GI I will get a UA to exclude nephrolithiasis and some x-rays to exclude any back or hip disease. Return office visit after x-rays [facility] Medical History Colon cancer screening Encounter for general adult medical examination with abnormal findings Nausea & vomiting Vertigo Diabetes 1.5, managed as type 2 Chronic GERD Surgical History Status post excision of lipoma History of colonoscopy History of carpal tunnel release History of tubal ligation History of section Family History Father Lung cancer Mother Melanoma Maternal Aunt Breast cancer Daughter No problems noted. Daughter No problems noted. Daughter No problems noted. Daughter No problems noted. Other Mental health disorder Social History Household Members: None Housing: Condominium Alcohol intake: never Patient Tobacco Use Status: Never used Tobacco e-Cigarette/Vaping Use: Never Used Second Hand Smoke Exposure: No service: No Current occupational status: retired Cognitive needs: No Hearing needs: No Vision needs: Yes Review of Systems Const Denies fatigue, Denies fever(s), Denies night sweats, Denies poor appetite and Denies weight loss ENT Reports Normal hearing present, Denies dental pain, Denies dysphagia, Denies hearing loss, Denies mouth pain, Denies odynophagia, Denies throat swelling, Denies tongue swelling and Reports other (Dentition adequate) Card Reports no additional complaints Resp Reports no additional complaints GI Details: Denies abdominal pain, Denies melena, Denies bloating, Denies hematochezia, Denies constipation, Denies GI cramping, Denies dysphagia, Denies excessive flatus, Denies early satiety, Reports heartburn, Denies diarrhea, Denies nausea, Denies odynophagia, Denies vomiting and Denies hematemesis Reports flank pain Musc Reports back pain Skin/Breast Denies pruritus, Denies lesions, Denies rash and Denies jaundice Neuro Reports Normal hearing present and Denies Abnormal speech present Endo Denies fatigue Aller/Immun Denies throat swelling and Denies tongue swelling Physical Exam Vital Signs: Last Vital Signs Pulse 62 01/02/24 16:05 BP 121/54 L 01/02/24 16:05 BMI result Body Mass Index 27.9 Const General: cooperative, no acute distress, well developed and well groomed Nutritional Appearance: well nourished and overweight Orientation/consciousness: oriented to person, oriented to place and oriented to time Limitations: No language barrier HEENT Head: Yes normocephalic and Yes atraumatic Eyes General: appearance normal, both eyes and all related structures Pupils: Equal, round and reactive pupils present Neck Neck: Yes normal visual inspection and Yes no lymphadenopathy Thyroid: Thyroid normal Resp Effort & Inspection: normal respiratory effort and able to speak in complete sentences Auscultation: clear to auscultation bilaterally Cardio Rate: regular rate Rhythm: regular rhythm Heart sounds: Normal, physiologic split S2 sound present Peripheral pulses: radial pulses present and posterior tibial pulses present GI Inspection: No distended, No Abdominal panniculus present and Yes obesity Palpation (GI): Soft to palpation, nontender, no guarding, not rigid and No hepatosplenomegaly present Percussion: Yes normal to percussion Auscultation: normal bowel sounds Rectal Exam - Female: deferred General: Yes CVA tenderness Back/Spine/Pelvis Back: CVA tenderness Thoracic/Lumbar Spine: straight leg raise negative bilaterally and paraspinal muscle tenderness Sacroiliac joints: bilaterally nontender Skin General skin exam: no rashes or lesions noted, turgor normal, skin not dry, no jaundice, No spider nevi and no striae Rashes: no rashes Nails: normal Neuro General: oriented to person, oriented to place and oriented to time Cranial nerves: Yes Equal, round and reactive pupils present and Yes Normal hearing present Speech: No Abnormal speech present Extrem General: Yes normal to inspection, No clubbing, No cyanosis and No edema Psych Appearance: grossly normal and well kempt Mental Status: mental status grossly normal Speech and movement: Normal speech and movement present Affect: normal affect Attitude: cooperative Thought process: Normal thought process present and not confabulating Thought content: Normal thought content present Insight: Limited insight present (Psych) Judgement: Limited judgement present (Psych) Assessment & Plan Assessment & Plan (1) Chronic GERD: Code(s): K21.9 - Gastro-esophageal reflux disease without esophagitis Category: Medical (2) Right flank pain: Code(s): R10.9 - Unspecified abdominal pain Category: Medical (3) Back pain: Code(s): M54.9 - Dorsalgia, unspecified Category: Medical Plan [employer] [place] #Dtr translates per pt request Her GERD continues to be well controlled on her omeprazole. She says now that her mild sharp stabbing pain is only when she lays on her right side. Since this sounds more musculoskeletal than GI I will get a UA to exclude nephrolithiasis and some x-rays to exclude any back or hip disease. Return office visit after x-rays Orders: Orders XR thoracic spine 2V 01/02/24 R10.9 - Unspecified abdominal pain, M54.9 - Dorsalgia, unspecified XR chest 2V 01/02/24 R10.9 - Unspecified abdominal pain, M54.9 - Dorsalgia, unspecified XR lumbar spine 2-3V 01/02/24 R10.9 - Unspecified abdominal pain, M54.9 - Dorsalgia, unspecified UA CC w/rflx Micro + Cult 01/02/24 R10.9 - Unspecified abdominal pain Medications: Refilled docusate sodium (Colace) 200 mg (2 x 100 mg) PO DAILY 180 caps 1RF 90 days omeprazole 20 mg PO BID 180 caps 1RF 90 days K21.9 - Gastro-esophageal reflux disease without esophagitis Coding Level of Care Code Est Pt Level 3 (21991) Diagnoses Chronic GERD K21.9 Right flank pain R10.9 Back pain M54.9
== END ==
PROVIDERS: PCP Internal Medicine; Visit Provider Nurse Practitioner
DX: K21.9 Gastro-esophageal reflux disease without esophagitis (principal); R10.9 Unspecified abdominal pain; M54.9 Dorsalgia, unspecified
CPT/HCPCS: 99499

== ENCOUNTER 2024-02-18 11:12 | Outpatient (REF) | payer OTHER, SELFPAY ==
[2024-02-18 13:31] LABS: Appearance Urine Clear; Color Urine Yellow; Glucose Urine UA Negative (Negative); Leukocyte Esterase Urine Small (1+) (Negative); Nitrite Urine Negative (Negative); PH 5.5 (5.0-9.0); Specific Gravity - Urine 1.025 (1.005-1.025); UMIC TRIGGER UACC YES; Urine Blood Negative (Negative); Urine Ketones Negative (Negative); Urine Protein Negative (Neg-Trace)
[2024-02-18 13:47] LABS: Bacteria Urine None Seen (None Seen); Hyaline Casts Urine 0-2 /LPF (0-2); RBC Urine 0-2 /HPF (0-2); Squamous Epithelial Cell Urine 0-2 /HPF (0-2); UACC Culture Trigger YES; WBC Urine 0-5 /HPF (0-5)
== END 2024-02-18 11:13 | disposition home or self-care (01) ==
LOC: HO.HMGCLDS 11:12
PROVIDERS: PCP Internal Medicine; Visit Provider Nurse Practitioner
DX: R10.9 Unspecified abdominal pain (principal)
CPT/HCPCS: 81001; 87086

== ENCOUNTER 2024-03-04 07:54 | Outpatient (AMB) | payer OTHER, SELFPAY ==
[2024-03-04 08:05] VITALS: BP 120/62; PULSE 56; O2SAT 100; BMI 29.0
--- NOTE | 2024-03-04 08:05 | A.OFFVIS_ITS ---
Vital Signs 03/04/24 08:05 Height 5 ft Weight 148 lb 6 oz BMI 29.0 BP 120/62 Blood Pressure Location Lt brachial Position Sitting Pulse 56 Pulse Source Pulse Oximeter Pulse Oximetry (%) 100 Oxygen Delivery Method Room Air Intake Visit Reasons: Knee OA/INJ Intake Note: Patient is here for OA and left bursa hip injection. Allergies aspirin [ASPIRIN] Allergy (Intermediate, Verified 03/04/24 08:08) STOMACH UPSET HPI HPI Knee OA/INJ: Details: She has been experiencing hand pain and stiffness for the last 2 months. Stiffness is lasting all day in her hands. She is having difficulty utilizing her hands such as opening bottles. She is also waking up with the hand numbness right hand more than left hand. Increased pain in left trochanteric bursa region. Last cortisone injection to left trochanteric bursa was in July or August of 2023. She received right trochanteric [facility]. She continues to take Celebrex 200 mg twice a day. [facility] Medical History (Updated 03/04/24 @ 08:41 by Sina Menjivar MD) Colon cancer screening Encounter for general adult medical examination with abnormal findings Nausea & vomiting Vertigo Diabetes 1.5, managed as type 2 Chronic GERD Surgical History Status post excision of lipoma History of colonoscopy History of carpal tunnel release History of tubal ligation History of section Family History Father Lung cancer Mother Melanoma Maternal Aunt Breast cancer Daughter No problems noted. Daughter No problems noted. Daughter No problems noted. Daughter No problems noted. Other Mental health disorder Social History Household Members: None Housing: Condominium Alcohol intake: never Patient Tobacco Use Status: Never used Tobacco e-Cigarette/Vaping Use: Never Used Second Hand Smoke Exposure: No service: No Current occupational status: retired Cognitive needs: No Hearing needs: No Vision needs: Yes Review of Systems Const All systems reviewed & are unremarkable except as noted in HPI and below Physical Exam Vital Signs: Last Vital Signs Pulse 56 03/04/24 08:05 BP 120/62 03/04/24 08:05 Pulse Ox 100 03/04/24 08:05 Oxygen Delivery Method Room Air 03/04/24 08:05 BMI result Body Mass Index 29.0 Const Other: General: Comfortable CVS: RRR Respiratory: clear to auscultation bilaterally. Good respiratory effort Skin: No lesions seen MSK: Tender to palpate MCPs and PIPs. No DIPJ tenderness.. No synovitis. Negative Phalen's test and Tinel's test. 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 No tenderness of any other joint. Good range of motion of upper extremities. Limited full external rotation bilateral hips. Bilateral trochanteric bursa present. Assessment & Plan Assessment & Plan (1) Trochanteric bursitis of left hip: Comment: Left trochanteric bursa pain is uncontrolled. Code(s): M70.62 - Trochanteric bursitis, left hip Category: Medical Plan: Patient received cortisone injection to left trochanteric bursa this visit She will monitor for hyperglycemia. History of diabetes. History of cortisone injection induced hyperglycemia when she received 2 trochanteric bursa cortisone injections in 1 visit. I will need to give her 1 cortisone injection in each visit when needed to reduce the risk of cortisone injection induced hyperglycemia (rare). Return to clinic in 2 weeks for right trochanteric bursa injection (2) Carpal tunnel syndrome: Comment: Suspected bilateral right worse than left. Negative clinical testing. I will further evaluate with nerve conduction study Code(s): G56.00 - Carpal tunnel syndrome, unspecified upper limb Category: Medical Qualifiers: Laterality: bilateral Qualified Code(s): G56.03 - Carpal tunnel syndrome, bilateral upper limbs Plan: EMG upper extremities bilateral ordered (3) Hand pain: Comment: She has developed hand pain and stiffness for the last 2 months involving MCPs and PIP without synovitis on exam. I will initiate workup for early inflammatory arthritis with labs and x-rays. She agreed to start occupational therapy due to recent functional limitation to increase strength. Code(s): M79.643 - Pain in unspecified hand Category: Medical Qualifiers: Laterality: bilateral Qualified Code(s): M79.641 - Pain in right hand; M79.642 - Pain in left hand Plan: X-rays ordered Labs ordered OT ordered Return to clinic in 2 weeks to review results (4) Hand weakness: Code(s): R29.898 - Other symptoms and signs involving the musculoskeletal system Category: Medical Plan: See above Orders: Orders Erythrocyte Sedimentation Rate Today M79.643 - Pain in unspecified hand Cyclic Citrullinated Peptide Today M79.643 - Pain in unspecified hand Rheumatoid Factor Today M79.643 - Pain in unspecified hand Alanine Aminotransferase Today M79.643 - Pain in unspecified hand XR hand LT min 3V Today M79.643 - Pain in unspecified hand XR hand RT min 3V Today M79.643 - Pain in unspecified hand AMB Joint Injection/Aspiration Today M70.62 - Trochanteric bursitis, left hip NE electromyogram (EMG) Today G56.00 - Carpal tunnel syndrome, unspecified upper limb Creatinine Today M79.643 - Pain in unspecified hand Complete Blood Count Auto Diff Today M79.643 - Pain in unspecified hand Aspartate Amino Transferase Today M79.643 - Pain in unspecified hand EUSEBIO Reflex Titer and Pattern Today M79.643 - Pain in unspecified hand OT Evaluation and Treatment Today R29.898 - Other symptoms and signs involving the musculoskeletal system Medications: New lidocaine (PF) 10 mg Infiltration ONCE 1 mL 0RF M70.62 - Trochanteric bursitis, left hip Kenalog (triamcinolone acetonide) 40 mg intra-articular ONCE 1 mL 0RF NS M70.62 - Trochanteric bursitis, left hip Coding Level of Care Code Est Pt Level 4 (32660) Complex EM visit Add On G2211 Diagnoses Trochanteric bursitis of left hip M70.62 Bilateral carpal tunnel syndrome G56.03 Laterality: bilateral Pain in both hands M79.641; M79.642 Laterality: bilateral Hand weakness R29.898
== END 2024-03-04 08:38 | disposition home or self-care (01) ==
PROVIDERS: PCP Internal Medicine; Visit Provider Internal Medicine Rheumatology
DX: M70.62 Trochanteric bursitis, left hip (principal); G56.03 Carpal tunnel syndrome, bilateral upper limbs; M79.641 Pain in right hand; M79.642 Pain in left hand; R29.898 Other symptoms and signs involving the musculoskeletal system
CPT/HCPCS: 20610; 99214; G2211

== ENCOUNTER 2024-03-04 07:54 | Outpatient (REF) | payer OTHER, SELFPAY ==
[2024-03-04 17:22] LABS: MANUAL DIFF FLAG NO
[2024-03-04 17:30] LABS: Basophils Percent Auto 0.4 % (0-2); Eosinophils Absolute Auto 0.1 X10*3/uL (0.0-0.4); Eosinophils Percent Auto 0.7 % (0-4); Hematocrit 38.4 % (37.0-47.0); Hemoglobin 12.2 g/dl (12.0-16.0); Imm Gran Abs Auto 0.02 X10*3/uL (0.00-0.03); Imm Gran Pct Auto 0.3 % (0.0-0.4); Lymphocytes Absolute Auto 3.9 X10*3/uL (1.2-4.9); Lymphocytes Percent Auto 54.2 % (20-40); Mean Corpuscular HGB Conc 31.8 g/dl (31.0-35.0); Mean Corpuscular Hemoglobin 30.8 pg (27.0-33.0); Mean Platelet Volume 10.3 fL (9.4-12.3); Monocytes Absolute Auto 0.3 X10*3/uL (0.1-1.2); Monocytes Percent Auto 3.8 % (2-11); Neutrophils Absolute Auto 2.9 x10*3/uL (2.0-8.3); Neutrophils Percent Auto 40.6 % (45-73); Platelet Count 266 X10*3/uL (160-400); Red Blood Count 3.96 X10*6/uL (4.20-5.50); Red Cell Distribution Width 13.4 % (11.0-16.0); White Blood Count 7.1 X10*3/uL (4.8-10.8)
[2024-03-04 17:38] LABS: Rheumatoid Factor < 13.0 IU/mL (<15.0)
[2024-03-04 17:39] LABS: Alanine Aminotransferase 15 U/L (0-31); Aspartate Amino Transferase 25 U/L (5-31); Estimated Glomerular Filt Rate > 60
[2024-03-04 18:09] LABS: Erythrocyte Sedimentation Rate 19 MM/HR (0-20)
[2024-03-06 14:53] LABS: Anti Nuclear Antibody Screen NEGATIVE (NEGATIVE)
[2024-03-07 18:28] LABS: Cyclic Citrullinated Peptide <16 UNITS
== END 2024-03-04 07:55 | disposition home or self-care (01) ==
LOC: HO.HKASLDS 07:54
PROVIDERS: PCP Internal Medicine; Visit Provider Internal Medicine Rheumatology
DX: M79.641 Pain in right hand (principal); M79.642 Pain in left hand; M70.62 Trochanteric bursitis, left hip; G56.03 Carpal tunnel syndrome, bilateral upper limbs; R29.898 Other symptoms and signs involving the musculoskeletal system
CPT/HCPCS: 20610; 36415; 82565; 84450; 84460; 85025; 85652; 86038; 86200; 86431; 99212; J2003; J3301

== ENCOUNTER 2024-03-26 08:00 | Outpatient (AMB) | payer OTHER, SELFPAY ==
[2024-03-26 08:02] VITALS: BP 124/70
--- NOTE | 2024-03-26 08:02 | A.OFFVIS_ITS ---
Vital Signs 03/26/24 08:02 Height 5 ft BP 124/70 Blood Pressure Location Rt brachial Position Sitting Intake Visit Reasons: knee OA/ injection Intake Note: Patient presents for hip injection. patient here for right hip injection Allergies aspirin [ASPIRIN] Allergy (Intermediate, Verified 03/26/24 08:05) STOMACH UPSET HPI HPI knee OA/ injection: Details: Patient is here for right trochanteric bursa cortisone injection. She has an EMG appointment scheduled this Sunday but is nervous about the appointment and we will have her daughter reschedule it to the following week. [facility] Medical History Colon cancer screening Encounter for general adult medical examination with abnormal findings Nausea & vomiting Vertigo Diabetes 1.5, managed as type 2 Chronic GERD Surgical History Status post excision of lipoma History of colonoscopy History of carpal tunnel release History of tubal ligation History of section Family History Father Lung cancer Mother Melanoma Maternal Aunt Breast cancer Daughter No problems noted. Daughter No problems noted. Daughter No problems noted. Daughter No problems noted. Other Mental health disorder Social History Household Members: None Housing: Condominium Alcohol intake: never Patient Tobacco Use Status: Never used Tobacco e-Cigarette/Vaping Use: Never Used Second Hand Smoke Exposure: No service: No Current occupational status: retired Cognitive needs: No Hearing needs: No Vision needs: Yes Review of Systems Const All systems reviewed & are unremarkable except as noted in HPI and below Physical Exam Vital Signs: Last Vital Signs BP 124/70 03/26/24 08:02 Const Other: General: Comfortable Skin: No lesions seen MSK: Right trochanteric bursa tenderness found Office Procedures AMB Joint Injection/Aspiration Joint Injection/Aspiration Details: Right trochanteric bursa Prep: site was prepped using aseptic technique Injected: 40 mg of, Kenalog, with 1 mL of and 1% plain lidocaine Procedure: The patient tolerated the procedure well. Postprocedure protocol was discussed with patient. Coding 29635 - Large joint Procedure code (CPT) selection complete Office Meds lidocaine (PF) 10 mg/mL (1 %) injection solution Performing Provider: Sina Menjivar MD Performing Location: [facility] [place] [facility] Administered by: Sina Menjivar MD on 03/26/24 08:36 Dose Route Admin Location Dispensed Lot Number Expiration Date [facility] [employer] 10 mg Infiltration 5 mL [id number] HUONS/VGYAAN Kenalog 40 mg/mL suspension for injection Performing Provider: Sina Menjivar MD Performing Location: [facility] [place] [facility] Administered by: Sina Menjivar MD on 03/26/24 08:36 Dose Route Admin Location Dispensed Lot Number Expiration Date [facility] [employer] 40 mg intrabursal 1 mL [id number] [employer] Assessment & Plan Assessment & Plan (1) Trochanteric bursitis, right hip: Comment: Pain is uncontrolled Code(s): M70.61 - Trochanteric bursitis, right hip Category: Medical Plan: Patient received right trochanteric bursa injection this visit (2) Trochanteric bursitis of left hip: Comment: Left trochanteric bursa pain is controlled with last cortisone injection Code(s): M70.62 - Trochanteric bursitis, left hip Category: Medical Plan: Monitor clinically (3) Carpal tunnel syndrome: Comment: Suspected bilateral right worse than left. Negative clinical testing last visi t. EMG scheduled for this Sunday but patient is considering rescheduling it to the following week did anxiety Code(s): G56.00 - Carpal tunnel syndrome, unspecified upper limb Category: Medical Qualifiers: Laterality: bilateral Qualified Code(s): G56.03 - Carpal tunnel syndrome, bilateral upper limbs Plan: EMG upper extremities bilateral scheduled this Sunday. I have asked patient to take Tylenol along with Celebrex prior to her appointment. Return to clinic in 1 month (4) Hand pain: Comment: She has developed hand pain and stiffness for the last 2 months involving MCPs and PIP without synovitis on exam. Initial laboratory workup is unremarkable. She has not had x-rays of her hands done. Code(s): M79.643 - Pain in unspecified hand Category: Medical Qualifiers: Laterality: bilateral Qualified Code(s): M79.641 - Pain in right hand; M79.642 - Pain in left hand Plan: X-rays ordered. Encouraged patient to have x-rays done OT ordered last visit. She has not received a phone call to schedule appointment. Patient's daughter will communicate with core PT about appointment. Return to clinic in 1 month to review results (5) Hand weakness: Code(s): R29.898 - Other symptoms and signs involving the musculoskeletal system Category: Medical Plan: OT ordered last visit. Patient's daughter will contact core PT to schedule OT. Orders: Orders AMB Joint Injection/Aspiration Today M70.62 - Trochanteric bursitis, left hip Medications: New lidocaine (PF) 10 mg Infiltration ONCE 1 mL 0RF M70.62 - Trochanteric bursitis, left hip Kenalog (triamcinolone acetonide) 40 mg intrabursal ONCE 1 mL 0RF NS M70.62 - Trochanteric bursitis, left hip Coding Level of Care Code Est Pt Level 4 (45975) Complex EM visit Add On G2211 Diagnoses Trochanteric bursitis, right hip M70.61 Trochanteric bursitis of left hip M70.62 Bilateral carpal tunnel syndrome G56.03 Laterality: bilateral Pain in both hands M79.641; M79.642 Laterality: bilateral Hand weakness R29.898 CPT Codes Coding - 02165 Large joint: 20841 - Large joint ([id number])
== END 2024-03-26 08:29 | disposition home or self-care (01) ==
PROVIDERS: PCP Internal Medicine; Visit Provider Internal Medicine Rheumatology
DX: M70.61 Trochanteric bursitis, right hip (principal); M70.62 Trochanteric bursitis, left hip; G56.03 Carpal tunnel syndrome, bilateral upper limbs; M79.641 Pain in right hand; M79.642 Pain in left hand; R29.898 Other symptoms and signs involving the musculoskeletal system
CPT/HCPCS: 20610; 99214

== ENCOUNTER 2024-03-26 08:00 | Outpatient (REF) | payer OTHER, SELFPAY ==
--- NOTE | ~2024-03-26 | XR_ITS ---
CLINICAL HISTORY: M79.643 - Pain in unspecified hand 3 view right hand Comparison: None Findings: Bones intact. No dislocations. Mild osteoarthritis of the interphalangeal joints. No erosions. No radiopaque foreign body. IMPRESSION: 1. No acute findings This document has been electronically signed by: Soraya Cabrera MD on 03/27/2024 02:13:15
--- NOTE | ~2024-03-26 | XR_ITS ---
CLINICAL HISTORY: M79.643 - Pain in unspecified hand 3 view left hand Comparison: None Findings: Bones intact. No dislocations. Mild osteoarthritis of the interphalangeal joints. No erosions. No radiopaque foreign body. IMPRESSION: 1. No acute findings This document has been electronically signed by: Soraya Cabrera MD on 03/27/2024 02:13:31
== END 2024-03-26 08:01 | disposition home or self-care (01) ==
LOC: HO.HMGCX 08:00
PROVIDERS: PCP Internal Medicine; Visit Provider Internal Medicine Rheumatology
DX: M70.61 Trochanteric bursitis, right hip (principal); M79.641 Pain in right hand; M79.642 Pain in left hand; M70.62 Trochanteric bursitis, left hip; M17.0 Bilateral primary osteoarthritis of knee; G56.03 Carpal tunnel syndrome, bilateral upper limbs; R29.898 Other symptoms and signs involving the musculoskeletal system
CPT/HCPCS: 20610; 73130; 99212; J2003; J3300

== ENCOUNTER → 2024-03-26 09:10 | Outpatient (BNV) | payer OTHER, SELFPAY | PROVIDERS: PCP Internal Medicine; Visit Provider Radiology Diagnostic Radiology | DX: M19.042 Primary osteoarthritis, left hand (principal); M19.041 Primary osteoarthritis, right hand | CPT/HCPCS: 73130 ==

== ENCOUNTER 2024-04-15 08:49 | Outpatient (AMB) | payer OTHER, SELFPAY ==
[2024-04-15 08:52] VITALS: BP 124/74; PULSE 69; O2SAT 95; BMI 28.0
--- NOTE | 2024-04-15 08:52 | MHC.PC.OV ---
Vital Signs 04/15/24 08:52 Height 5 ft Weight 143 lb 5 oz BMI 28.0 BP 124/74 Blood Pressure Location Lt brachial Position Sitting Pulse 69 Pulse Source Pulse Oximeter Pulse Oximetry (%) 95 Intake Visit Reasons: 4 months f/up Allergies aspirin [ASPIRIN] Allergy (Intermediate, Verified 04/15/24 08:52) STOMACH UPSET Medication List - Last Reconciled 04/15/24 by Travis Cairas MD blood sugar diagnostic (FreeStyle Lite Strips) Once a day celecoxib 200 mg PO BID cholecalciferol (vitamin D3) 25 mcg PO DAILY cyanocobalamin (vitamin B-12) (Vitamin B-12) 500 mcg PO DAILY docusate sodium (Colace) 200 mg (2 x 100 mg) PO DAILY 90 days flash glucose scanning reader (FreeStyle Melva 2 [place]) As directed flash glucose scanning reader (FreeStyle Melva 2 [place]) As directed lancets (FreeStyle Lancets) Once a day levothyroxine 75 mcg PO DAILY 90 days magnesium 250 mg PO DAILY omeprazole 20 mg PO BID 90 days Tobacco use date assessed: 04/15/24 Fall risk assessment: No Falls in past year Last assessed Fall Risk: 04/15/24 Dental Screening Dental Screen Date: 04/15/24 Did you have a dental visit in the last 12 months?: No Did you have a dental problem in the last 6 months where you did not have access to dental care?: No Was dental information given to patient?: Patient has dentist HPI 4 months f/up HPI Details History - The patient is a 74 year old female presenting for regular follow-up appointment . - She recently underwent laboratory testing by her insurance claims specialist, primarily a CBC. - Hypothyroidism continues to be monitored and managed with medication refills needed. - Future lab work is required, including kidney function and glucose testing, scheduled for four months prior to her next appointment. - The patient states her overall health is stable with no newly emerging symptoms or exacerbations of existing conditions such as osteoarthritis. - BMI is elevated need to lose weight - continue vitamin supplement - diabetes stable - GERD is stable with omeprazole Problem List - Osteoarthritis - Hypothyroidism - diabetes mellitus - overweight - GERD - Patient Instructions - Obtain laboratory work, including kidney functions and glucose levels, prior to your next appointment in four months. - Refills for thyroid medication have been sent to the pharmacy. - Continue monitoring your health and report any new symptoms or changes. - Stay warm and maintain your current health regimen. Review of Systems - General: No fever no chills - Neurological: No headaches no dizziness - Ear nose throat: No sore throat no hearing difficulty no ear pain - Cardiovascular: No syncope, no chest pain, no palpitations - Gastrointestinal: No nausea vomiting or diarrhea - Endocrine: No polyuria polydipsia no heat intolerance - Genitourinary: No dysuria , no blood in urine Physical Exam - General: No acute distress - HEENT: No acute findings - Neck: Supple - Respiratory system: Able to talk in full sentences, no audible wheeze - cardiovascular: S1-S2 regular in rate and rhythm - Gastrointestinal: No pain - Extremities: No new findings - WOOL HANDLER: Alert awake oriented x3 motor sensory intact - Skin: Normal turgor PFS Medical History Colon cancer screening Encounter for general adult medical examination with abnormal findings Nausea & vomiting Vertigo Diabetes 1.5, managed as type 2 Chronic GERD Surgical History Status post excision of lipoma History of colonoscopy History of carpal tunnel release History of tubal ligation History of section Family History Father Lung cancer Mother Melanoma Maternal Aunt Breast cancer Daughter No problems noted. Daughter No problems noted. Daughter No problems noted. Daughter No problems noted. Other Mental health disorder Social History Household Members: None Housing: Condominium Alcohol intake: never Patient Tobacco Use Status: Never used Tobacco e-Cigarette/Vaping Use: Never Used Second Hand Smoke Exposure: No service: No Current occupational status: retired Cognitive needs: No Hearing needs: No Vision needs: Yes Questionnaire Thrive Questionnaire Date Thrive assessed: 04/15/24 I am a: Patient What is your living situation today?: I have a steady place to live Within the past 12 months, did the food you bought not last and you didn't have the money to get more?: Often true Within the past 12 months, did you worry whether your food would run out before you got money to buy more?: Sometimes True Do you have trouble paying for medicines?: No Do you have trouble getting transportation to medical appointments?: No Do you have trouble paying your heating and electricity bill?: No Do you have trouble taking care of your child, family member or friend?: No Do you have trouble with day-to-day activities such as bathing, preparing meals, shopping, managing finances, etc.?: Yes Are you currently unemployed and looking for a job?: No Are you interested in more education?: No Please select the resources that you would like help with: Utilities Currently or been in a relationship where the following occur: No concerns reported THRIVE Score: 2 AUDIT C Alcohol Use Questionnaire (AUDIT-C) 1. How often do you have a drink containing alcohol?: Monthly or less 2. How many drinks containing alcohol do you have on a typical day when you are drinking?: 1 or 2 3. How often do you have six or more drinks on one occasion?: Never Total Score: 1 Score Reviewed/Action Taken: Yes COLE-7 AMB Questionnaire COLE-7 Date COLE - 7 assessed: 04/15/24 Feeling nervous, anxious, or on edge: 0 = Not at all Not being able to stop or control worryin = Not at all Worrying too much about different things: 0 = Not at all Trouble relaxin = Not at all Being so restless that it is hard to sit still: 0 = Not at all Becoming easily annoyed or irritable: 0 = Not at all Feeling afraid as if something awful might happen: 0 = Not at all Total COLE-7 score (0-4 normal; 5-9 mild; 10-14 moderate; 15-21 severe): 0 Source: Developed by Drs. Pablo Estrada, Kelley Cerna, Pk Fofana and colleagues, with an educational harpreet from [employer]. COLE-7 Assessment Billing COLE-7 Assessment Tool: COLE-7 Assessment 26378 Physical exam (Primary Care) Vital Signs: Last Vital Signs Pulse 69 04/15/24 08:52 BP 124/74 04/15/24 08:52 Pulse Ox 95 04/15/24 08:52 BMI result Body Mass Index 28.0 Tobacco/Smoking Status: Tobacco use Status Tobacco use date assessed 04/15/24 04/15/24 08:54 Patient Tobacco Use Status Never used Tobacco 04/15/24 08:54 e-Cigarette/Vaping Use Never Used 04/15/24 08:54 Thrive Assessment: Date of Thrive Assessment Date Thrive assessed 04/15/24 04/15/24 09:03 Currently or been in a relationship where the following occur: No concerns reported Coding Level of Care Code Est Pt Level 4 (89191) Complex EM visit Add On G2211 Diagnoses Diabetes 1.5, managed as type 2 E13.9 Chronic GERD K21.9 Vertigo R42 Other specified hypothyroidism E03.8 Anxiety, generalized F41.1 Bladder disorder N32.9 Constipation by delayed colonic transit K59.01 Additional Codes COLE-7 Assessment Billing - COLE-7 Assessment Tool: COLE-7 Assessment 89279 ([id number]) Assessment & Plan Assessment & Plan (1) Diabetes 1.5, managed as type 2: Code(s): E13.9 - Other specified diabetes mellitus without complications Category: Medical (2) Chronic GERD: Code(s): K21.9 - Gastro-esophageal reflux disease without esophagitis Category: Medical (3) Vertigo: Code(s): R42 - Dizziness and giddiness Category: Medical (4) Other specified hypothyroidism: Code(s): E03.8 - Other specified hypothyroidism Category: Medical (5) Anxiety, generalized: Code(s): F41.1 - Generalized anxiety disorder Category: Medical (6) Bladder disorder: Code(s): N32.9 - Bladder disorder, unspecified Category: Medical (7) Constipation by delayed colonic transit: Code(s): K59.01 - Slow transit constipation Category: Medical Plan History - The patient is a 74 year old female presenting for regular follow-up appointment . - She recently underwent laboratory testing by her insurance claims specialist, primarily a CBC. - Hypothyroidism continues to be monitored and managed with medication refills needed. - Future lab work is required, including kidney function and glucose testing, scheduled for four months prior to her next appointment. - The patient states her overall health is stable with no newly emerging symptoms or exacerbations of existing conditions such as osteoarthritis. - BMI is elevated need to lose weight - continue vitamin supplement - diabetes stable - GERD is stable with omeprazole Problem List - Osteoarthritis - Hypothyroidism - diabetes mellitus diet-controlled - overweight - GERD - urine incontinence chronic [place] of care Ar[facility] [place] Dr. Otto Bernal is through [facility], Dr Ros[facility] Patient Instructions - Obtain laboratory work, including kidney functions and glucose levels, prior to your next appointment in four months. - Refills for thyroid medication have been sent to the pharmacy. - Continue monitoring your health and report any new symptoms or changes. - Stay warm and maintain your current health regimen. Orders: Orders Hemoglobin A1c Today E03.8 - Other specified hypothyroidism, E13.9 - Other specified diabetes mellitus without complications, E66.09 - Other obesity due to excess calories, F41.1 - Generalized anxiety disorder, K21.9 - Gastro-esophageal reflux disease without esophagitis, K59.01 - Slow transit constipation, N32.9 - Bladder disorder, unspecified, R42 - Dizziness and giddiness, Z68.31 - Body mass index [BMI] 31.0-31.9, adult Comprehensive Met. Panel Today E03.8 - Other specified hypothyroidism, E13.9 - Other specified diabetes mellitus without complications, E66.09 - Other obesity due to excess calories, F41.1 - Generalized anxiety disorder, K21.9 - Gastro-esophageal reflux disease without esophagitis, K59.01 - Slow transit constipation, N32.9 - Bladder disorder, unspecified, R42 - Dizziness and giddiness, Z68.31 - Body mass index [BMI] 31.0-31.9, adult LDL Cholesterol Direct Today E03.8 - Other specified hypothyroidism, E13.9 - Other specified diabetes mellitus without complications, E66.09 - Other obesity due to excess calories, F41.1 - Generalized anxiety disorder, K21.9 - Gastro-esophageal reflux disease without esophagitis, K59.01 - Slow transit constipation, N32.9 - Bladder disorder, unspecified, R42 - Dizziness and giddiness, Z68.31 - Body mass index [BMI] 31.0-31.9, adult Microalbumin, Random (w Creat) Today E03.8 - Other specified hypothyroidism, E13.9 - Other specified diabetes mellitus without complications, E66.09 - Other obesity due to excess calories, F41.1 - Generalized anxiety disorder, K21.9 - Gastro-esophageal reflux disease without esophagitis, K59.01 - Slow transit constipation, N32.9 - Bladder disorder, unspecified, R42 - Dizziness and giddiness, Z68.31 - Body mass index [BMI] 31.0-31.9, adult TSH reflex Free T4 Today E03.8 - Other specified hypothyroidism, E13.9 - Other specified diabetes mellitus without complications, E66.09 - Other obesity due to excess calories, F41.1 - Generalized anxiety disorder, K21.9 - Gastro-esophageal reflux disease without esophagitis, K59.01 - Slow transit constipation, N32.9 - Bladder disorder, unspecified, R42 - Dizziness and giddiness, Z68.31 - Body mass index [BMI] 31.0-31.9, adult Medications: Refilled levothyroxine 75 mcg PO DAILY 90 days 90 tabs 0RF levothyroxine 75 mcg PO DAILY 90 tabs 0RF 90 days
== END 2024-04-15 09:07 | disposition home or self-care (01) ==
PROVIDERS: PCP Internal Medicine; Visit Provider Internal Medicine
DX: E13.9 Other specified diabetes mellitus without complications (principal); K21.9 Gastro-esophageal reflux disease without esophagitis; R42 Dizziness and giddiness; E03.8 Other specified hypothyroidism; F41.1 Generalized anxiety disorder; N32.9 Bladder disorder, unspecified; K59.01 Slow transit constipation

== ENCOUNTER → 2024-04-15 08:49 | Outpatient (BNVA) | payer OTHER, SELFPAY | PROVIDERS: PCP Internal Medicine; Visit Provider Internal Medicine | DX: E55.9 Vitamin D deficiency, unspecified (principal); E53.8 Deficiency of other specified B group vitamins; E03.8 Other specified hypothyroidism; N32.9 Bladder disorder, unspecified; E13.9 Other specified diabetes mellitus without complications; K21.9 Gastro-esophageal reflux disease without esophagitis | CPT/HCPCS: 96127; 99212 ==

== ENCOUNTER 2024-05-02 09:51 | Outpatient (REF) | payer OTHER, SELFPAY | END 2024-05-02 09:52 | disposition home or self-care (01) | LOC: HO.MAMMO 09:51 | PROVIDERS: PCP Internal Medicine; Visit Provider Internal Medicine | DX: Z12.31 Encounter for screening mammogram for malignant neoplasm of breast (principal) | CPT/HCPCS: 77063; 77067 ==

== ENCOUNTER → 2024-05-02 10:15 | Outpatient (BNV) | payer OTHER, SELFPAY | PROVIDERS: PCP Internal Medicine; Visit Provider Internal Medicine | DX: Z12.31 Encounter for screening mammogram for malignant neoplasm of breast (principal) | CPT/HCPCS: 77063; 77067 ==

== ENCOUNTER → 2024-05-23 16:11 | Outpatient (AMB) | payer OTHER, SELFPAY ==
--- NOTE | 2024-05-23 16:20 | A.OFFVIS_ITS ---
Vital Signs 05/23/24 16:29 Height 5 ft Weight 140 lb 3.424 oz BMI 27.4 BP 134/72 Blood Pressure Location Lt brachial Position Sitting Pulse 68 Intake Visit Reasons: Rt flank pain, CIC , GERD Intake Note: Marilyn presents in follow up of Rt flank pain, CIC, and GERD. CC: Patient denies having any GI symptoms today. 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: Yes Allergies aspirin [ASPIRIN] Allergy (Intermediate, Verified 05/23/24 16:42) STOMACH UPSET HPI HPI Rt flank pain, CIC , GERD: Details: Assessment & Plan (1) Chronic GERD: Code(s): K21.9 - Gastro-esophageal reflux disease without esophagitis Category: Medical (2) Right flank pain: Code(s): R10.9 - Unspecified abdominal pain Category: Medical (3) Back pain: Code(s): M54.9 - Dorsalgia, unspecified Category: Medical Orders: Orders XR thoracic spine 2V Today M54.9 - Dorsalgia, unspecified, R10.9 - Unspecified abdominal pain XR chest 2V Today M54.9 - Dorsalgia, unspecified, R10.9 - Unspecified abdominal pain XR lumbar spine 2-3V Today M54.9 - Dorsalgia, unspecified, R10.9 - Unspecified abdominal pain UA CC w/rflx Micro + Cult Today R10.9 - Unspecified abdominal pain Medications: Refilled docusate sodium (Colace) 200 mg (2 x 100 mg) PO DAILY 90 days 180 caps 1RF omeprazole 20 mg PO BID 90 days 180 caps 1RF K21.9 - Gastro-esophageal reflux disease without esophagitis BAHRAINI #Dtr translates per pt request Her GERD continues to be well controlled on her omeprazole. She says now that her mild sharp stabbing pain is only when she lays on her right side. LABS: 02/18/24-[address]: Travis Carias MD ORDERED: [facility] w Micros QUERIES: Source: Urine, Clean Catch Test Result Flag Reference Ur Color Yellow Ur Appear Clear PH 5.5 5.0-9.0 Ur Glu Negative Negative mg/dL Urine Blood Negative Negative Spec [place] Ur 1.025 1.005-1.025 Urine Protein Negative Neg-Trace mg/dL Urine Ketones Negative Negative mg/dL Ur Nitrite Negative Negative Ur Arun Esterase Small (1+) H Negative Ur RBC 0-2 0-2 /HPF Ur WBC 0-5 0-5 /HPF Ur Squam Epi 0-2 0-2 /HPF Ur Bact None Seen None Seen Ur Hyaline Quad Stayer 0-2 0-2 /LPF X-RAY OF THE CHEST, THORACIC SPINE, AND LUMBAR SPINE 01/02/2024 FINDINGS: THORACIC SPINE: Minimal dextroscoliosis of the thoracic spine. Moderate multilevel degenerative changes in the thoracic spine. Limited visualization of the thoracic spine on the lateral view due to technical issues and body habitus. Degenerative changes on very limited images of the cervical spine could be evaluated with dedicated cervical spine radiographs. CHEST: There is no gross pneumothorax. Heart size is normal. No significant pleural effusion. No new focal consolidation. LUMBAR SPINE: Transitional anatomy present. There are 4 well-formed nonrib-bearing lumbar-type vertebral bodies. There is a transitional lumbosacral vertebral body referred to as L5 with sacralization of the transverse processes for the purposes of this report. Dedicated imaging of the entire spine should be obtained prior to any intervention/procedure to ensure correct numbering of vertebral body levels. Degenerative changes in the bilateral sacroiliac joints. Facet arthritis in the lower spine. Moderate multilevel lumbar spondylosis is most notable at L4-L5. Grade 1 anterolisthesis of L4 on L5 with moderate loss of disc space height and degenerative changes. XR/XR chest 2V IMPRESSION: 1. Transitional anatomy as detailed above. 2. Moderate multilevel lumbar spondylosis most notable at L4-L5. 3. Mild multilevel degenerative changes in the thoracic spine. 4. No focal consolidation to suggest pneumonia. No significant pleural effusion. TODAY'S VISIT BAHRAINI #V live Her GERD remains well controlled on her omeprazole. She also uses Colace for her constipation. We review the x-ray and there is evidence that she could have a pinched nerve in her thoracic spine causing the pain in her ribcage. She also has lumbar spondylosis with anterolisthesis at L4-L5 that could be a problem in the future. That this diagnosis I encouraged her to talk to her primary care provider about possible physical therapy referral and then either to pain management or to an orthopedic spine provider. Return office visit in 6 months [facility] Medical History (Updated 05/27/24 @ 16:09 by MG Perez) Hand weakness Hand pain Palpitations Sinusitis Abrasion of skin of left upper arm Injury of shoulder, left Fall Bladder disorder Cough Cervical paraspinal muscle spasm Dizziness Colon cancer screening Encounter for general adult medical examination with abnormal findings Nausea & vomiting Vertigo Diabetes 1.5, managed as type 2 Chronic GERD Surgical History Status post excision of lipoma History of colonoscopy History of carpal tunnel release History of tubal ligation History of section Family History Father Lung cancer Mother Melanoma Maternal Aunt Breast cancer Daughter No problems noted. Daughter No problems noted. Daughter No problems noted. Daughter No problems noted. Other Mental health disorder Social History Household Members: None Housing: Condominium Alcohol intake: never Patient Tobacco Use Status: Never used Tobacco e-Cigarette/Vaping Use: Never Used Second Hand Smoke Exposure: No service: No Current occupational status: retired Cognitive needs: No Hearing needs: No Vision needs: Yes Review of Systems Const Details: glasses Denies fatigue, Denies fever(s), Denies night sweats, Denies poor appetite and Denies weight loss ENT Reports Normal hearing present, Denies dental pain, Denies dysphagia, Denies hearing loss, Denies mouth pain, Denies odynophagia, Denies throat swelling, Denies tongue swelling and Reports other (Dentition adequate) Card Reports no additional complaints Resp Reports no additional complaints GI Details: Denies abdominal pain, Denies melena, Denies bloating, Denies hematochezia, Reports constipation, Denies GI cramping, Denies dysphagia, Denies excessive flatus, Denies early satiety, Reports heartburn, Denies diarrhea, Denies nausea, Denies odynophagia, Denies vomiting and Denies hematemesis Reports flank pain Musc Reports back pain Skin/Breast Denies pruritus, Denies lesions, Denies rash and Denies jaundice Neuro Reports Normal hearing present and Denies Abnormal speech present Endo Denies fatigue Aller/Immun Denies throat swelling and Denies tongue swelling Physical Exam Vital Signs: Last Vital Signs Pulse 68 05/23/24 16:29 BP 134/72 05/23/24 16:29 BMI result Body Mass Index 27.4 Const General: cooperative, no acute distress, well developed and well groomed Nutritional Appearance: well nourished and overweight Orientation/consciousness: oriented to person, oriented to place and oriented to time Limitations: No language barrier HEENT Head: Yes normocephalic and Yes atraumatic Eyes General: appearance normal, both eyes and all related structures Pupils: Equal, round and reactive pupils present Neck Neck: Yes normal visual inspection and Yes no lymphadenopathy Thyroid: Thyroid normal Resp Effort & Inspection: normal respiratory effort and able to speak in complete sen tences Auscultation: clear to auscultation bilaterally Cardio Rate: regular rate Rhythm: regular rhythm Heart sounds: Normal, physiologic split S2 sound present Peripheral pulses: radial pulses present and posterior tibial pulses present GI Inspection: No distended, No Abdominal panniculus present and Yes obesity Palpation (GI): Soft to palpation, nontender, no guarding, not rigid and No hepatosplenomegaly present Percussion: Yes normal to percussion Auscultation: normal bowel sounds Rectal Exam - Female: deferred Skin General skin exam: no rashes or lesions noted, turgor normal, skin not dry, no jaundice, No spider nevi and no striae Rashes: no rashes Nails: normal Neuro General: oriented to person, oriented to place and oriented to time Cranial nerves: Yes Equal, round and reactive pupils present and Yes Normal hearing present Speech: No Abnormal speech present Extrem General: Yes normal to inspection, No clubbing, No cyanosis and No edema Psych Appearance: grossly normal and well kempt Mental Status: mental status grossly normal Speech and movement: Normal speech and movement present Affect: normal affect Attitude: cooperative Thought process: Normal thought process present and not confabulating Thought content: Normal thought content present Insight: Limited insight present (Psych) Judgement: Limited judgement present (Psych) Results Reviewed Results Reviewed: 02/18/24-[address]: Travis Carias MD ORDERED: [facility] w Micros QUERIES: Source: Urine, Clean Catch Test Result Flag Reference Ur Color Yellow Ur Appear Clear PH 5.5 5.0-9.0 Ur Glu Negative Negative mg/dL Urine Blood Negative Negative Spec [place] Ur 1.025 1.005-1.025 Urine Protein Negative Neg-Trace mg/dL Urine Ketones Negative Negative mg/dL Ur Nitrite Negative Negative Ur Arun Esterase Small (1+) H Negative Ur RBC 0-2 0-2 /HPF Ur WBC 0-5 0-5 /HPF Ur Squam Epi 0-2 0-2 /HPF Ur Bact None Seen None Seen Ur Hyaline Quad Stayer 0-2 0-2 /LPF X-RAY OF THE CHEST, THORACIC SPINE, AND LUMBAR SPINE 01/02/2024 FINDINGS: THORACIC SPINE: Minimal dextroscoliosis of the thoracic spine. Moderate multilevel degenerative changes in the thoracic spine. Limited visualization of the thoracic spine on the lateral view due to technical issues and body habitus. Degenerative changes on very limited images of the cervical spine could be evaluated with dedicated cervical spine radiographs. CHEST: There is no gross pneumothorax. Heart size is normal. No significant pleural effusion. No new focal consolidation. LUMBAR SPINE: Transitional anatomy present. There are 4 well-formed nonrib-bearing lumbar-type vertebral bodies. There is a transitional lumbosacral vertebral body referred to as L5 with sacralization of the transverse processes for the purposes of this report. Dedicated imaging of the entire spine should be obtained prior to any intervention/procedure to ensure correct numbering of vertebral body levels. Degenerative changes in the bilateral sacroiliac joints. Facet arthritis in the lower spine. Moderate multilevel lumbar spondylosis is most notable at L4-L5. Grade 1 anterolisthesis of L4 on L5 with moderate loss of disc space height and degenerative changes. XR/XR chest 2V IMPRESSION: 1. Transitional anatomy as detailed above. 2. Moderate multilevel lumbar spondylosis most notable at L4-L5. 3. Mild multilevel degenerative changes in the thoracic spine. 4. No focal consolidation to suggest pneumonia. No significant pleural effusion Assessment & Plan Assessment & Plan (1) Constipation by delayed colonic transit: Code(s): K59.01 - Slow transit constipation Category: Medical (2) Chronic GERD: Code(s): K21.9 - Gastro-esophageal reflux disease without esophagitis Category: Medical Plan BAHRAINI #V live Her GERD remains well controlled on her omeprazole. She also uses Colace for her constipation. We review the x-ray and there is evidence that she could have a pinched nerve in her thoracic spine causing the pain in her ribcage. She also has lumbar spondylosis with anterolisthesis at L4-L5 that could be a problem in the future. That this diagnosis I encouraged her to talk to her primary care provider about possible physical therapy referral and then either to pain management or to an orthopedic spine provider. Return office visit in 6 months Medications: Refilled omeprazole 20 mg PO BID 180 caps 1RF 90 days K21.9 - Gastro-esophageal reflux disease without esophagitis docusate sodium (Colace) 200 mg (2 x 100 mg) PO DAILY 180 caps 1RF 90 days Coding Level of Care Code Est Pt Level 3 (77245) Diagnoses Constipation by delayed colonic transit K59.01 Chronic GERD K21.9
[2024-05-23 16:29] VITALS: BP 134/72; PULSE 68; BMI 27.4
== END ==
LOC: HO.HGI 16:12
PROVIDERS: PCP Internal Medicine; Visit Provider Nurse Practitioner
DX: K59.01 Slow transit constipation (principal); K21.9 Gastro-esophageal reflux disease without esophagitis
CPT/HCPCS: 99213

== ENCOUNTER → 2024-05-23 16:11 | Outpatient (BNVA) | payer OTHER, SELFPAY | PROVIDERS: PCP Internal Medicine; Visit Provider Nurse Practitioner | DX: K21.9 Gastro-esophageal reflux disease without esophagitis (principal); K59.01 Slow transit constipation | CPT/HCPCS: 99212 ==

== ENCOUNTER 2024-09-04 09:01 | Outpatient (REF) | payer OTHER, SELFPAY ==
[2024-09-04 13:16] LABS: Hematocrit 37.8 % (37.0-47.0); Hemoglobin 12.3 g/dl (12.0-16.0); Mean Corpuscular HGB Conc 32.5 g/dl (31.0-35.0); Mean Corpuscular Hemoglobin 31.1 pg (27.0-33.0); Mean Corpuscular Volume 95.7 fL (80.0-98.0); NRBC Abs Auto 0.000 X10*3/uL (0.0-0.012); NRBC Pct Auto 0.0 /100WBC (0.0-0.2); Platelet Count 252 X10*3/uL (160-400); Red Blood Count 3.95 X10*6/uL (4.20-5.50); White Blood Count 8.0 X10*3/uL (4.8-10.8)
[2024-09-04 13:29] LABS: Alanine Aminotransferase 15 U/L (0-31); Aspartate Amino Transferase 23 U/L (5-31); Estimated Glomerular Filt Rate > 60
[2024-09-04 14:49] LABS: Atypical Lymph Absolute Manual 1.0 x10*3/uL; Atypical Lymphs Percent Manual 13 % (0-6); Eosinophils Absolute Manual 0.1 X10*3/uL (0.0-0.4); Eosinophils Percent Manual 1 % (0-4); Lymphocytes Absolute Manual 3.3 X10*3/uL (1.2-4.9); Lymphocytes Percent Manual 41 % (20-40); Monocytes Absolute Manual 0.3 X10*3/uL (0.1-1.2); Monocytes Percent Manual 4 % (2-11); Neutrophils Percent Manual 41 % (45-73)
[2024-09-04 14:50] LABS: Large Platelet PRESENT; RBC Morphology NORMAL
[2024-09-04 14:51] LABS: Band Neutrophils Percent 0 % (3-5); Neutrophils Absolute Manual 3.3 X10*3/uL (2.0-8.3); Toxic Vacuolation PRESENT
== END 2024-09-04 09:02 | disposition home or self-care (01) ==
LOC: HO.HKASLDS 09:01
PROVIDERS: PCP Internal Medicine; Visit Provider Internal Medicine Rheumatology
DX: M70.62 Trochanteric bursitis, left hip (principal); M70.61 Trochanteric bursitis, right hip; G56.03 Carpal tunnel syndrome, bilateral upper limbs; M76.62 Achilles tendinitis, left leg; M19.041 Primary osteoarthritis, right hand; M19.042 Primary osteoarthritis, left hand; Z79.1 Long term (current) use of non-steroidal anti-inflammatories (NSAID)
CPT/HCPCS: 20610; 36415; 82565; 84450; 84460; 85007; 85025; 85027; 99212; J2003; J3300

== ENCOUNTER 2024-09-04 09:01 | Outpatient (AMB) | payer OTHER, SELFPAY ==
[2024-09-04 09:04] VITALS: BP 120/74; PULSE 50; O2SAT 98; BMI 28.1
--- NOTE | 2024-09-04 09:04 | A.OFFVIS_ITS ---
Vital Signs 09/04/24 09:04 Height 5 ft Weight 144 lb BMI 28.1 BP 120/74 Blood Pressure Location Lt brachial Position Sitting Pulse 50 Pulse Source Pulse Oximeter Pulse Oximetry (%) 98 Oxygen Delivery Method Room Air Intake Visit Reasons: knee OA Intake Note: Patient presents for follow up on knee OA. She complains of pain in hip in the left side. Mail Caller Services: Mail Caller Offered & Declined Accompanied by: Daughter Allergies aspirin (ASPIRIN) Allergy (Intermediate, Verified 09/04/24 09:09) STOMACH UPSET HPI HPI knee OA: Details: Yi speaking patient. Daughter interprets. uncontrolled left hip pain. Left ankle is hurting due to pressure being applied when walking due to uncontrolled pain. Compliant with celebrex bid. Unable to open jars. She did not hear back from OT after called [facility] multiple times and leaving messages. [facility] Medical History (Updated 09/04/24 @ 09:43 by Sina Menjivar MD) Hand weakness Hand pain Palpitations Sinusitis Abrasion of skin of left upper arm Injury of shoulder, left Fall Bladder disorder Cough Cervical paraspinal muscle spasm Dizziness Colon cancer screening Encounter for general adult medical examination with abnormal findings Nausea & vomiting Vertigo Diabetes 1.5, managed as type 2 Chronic GERD Surgical History Status post excision of lipoma History of colonoscopy History of carpal tunnel release History of tubal ligation History of section Family History Father Lung cancer Mother Melanoma Maternal Aunt Breast cancer Daughter No problems noted. Daughter No problems noted. Daughter No problems noted. Daughter No problems noted. Other Mental health disorder Social History Household Members: None Housing: Condominium Alcohol intake: never Patient Tobacco Use Status: Never used Tobacco e-Cigarette/Vaping Use: Never Used Second Hand Smoke Exposure: No service: No Current occupational status: retired Cognitive needs: No Hearing needs: No Vision needs: Yes Physical Exam Vital Signs: Last Vital Signs Pulse 50 09/04/24 09:04 BP 120/74 09/04/24 09:04 Pulse Ox 98 09/04/24 09:04 Oxygen Delivery Method Room Air 07/17/25 09:04 BMI result Body Mass Index 28.1 Const Other: General: Comfortable Skin: No lesions seen MSK: Left trochanteric bursa tenderness found on palpation. Normal range of mo tion of hips. She has left Achilles tendon bulk present with tenderness on palpation. Office Procedures AMB Joint Injection/Aspiration Joint Injection/Aspiration Details: Left trochanteric bursa Prep: site was prepped using aseptic technique Injected: 40 mg of, Kenalog, with 1 mL of and 1% plain lidocaine Procedure: Informed verbal consent was obtained. The patient tolerated the procedure well. Postprocedure protocol was discussed with patient. Coding 43858 - Large joint Procedure code (CPT) selection complete Office Meds lidocaine (PF) 10 mg/mL (1 %) injection solution Performing Provider: Sina Menjivar MD Performing Location: [facility] [place] [facility] Administered by: Sina Menjivar MD on 09/04/24 09:40 Dose Route Admin Location Dispensed Lot Number Expiration Date [facility] Planing Machine Operator 10 mg Infiltration 2 mL [id number] 07/19/26 87994-818-62 [employer] Total Dispensed Waste 2 mL 50 % Kenalog 40 mg/mL suspension for injection Performing Provider: Sina Menjivar MD Performing Location: [facility] [place] [facility] Administered by: Sina Menjivar MD on 09/04/24 09:40 Dose Route Admin Location Dispensed Lot Number Expiration Date [facility] Planing Machine Operator 40 mg intrabursal 1 mL [id number] 09/18/25 [address]-5 [employer] Total Dispensed Waste 1 mL 0 % Assessment & Plan Assessment & Plan (1) Trochanteric bursitis of left hip: Comment: Recurrent. Left trochanteric bursa pain is uncontrolled Code(s): M70.62 - Trochanteric bursitis, left hip Category: Medical Plan: Patient received left trochanteric bursa cortisone injection this visit Continue Celebrex 200 mg twice a day. Labs for drug monitoring on chronic NSAID ordered Monitor blood sugars. History of diabetes. History of temporary hyperglycemia after cortisone injections. She receives 1 cortisone injection at a time per visit (2) Trochanteric bursitis, right hip: Comment: Pain is uncontrolled Code(s): M70.61 - Trochanteric bursitis, right hip Category: Medical Plan: Return to clinic in 2 weeks for right trochanteric bursa injection (3) Carpal tunnel syndrome: Comment: Suspected bilateral right worse than left. Negative clinical testing last visit. EMG scheduled in September. Code(s): G56.00 - Carpal tunnel syndrome, unspecified upper limb Category: Medical Qualifiers: Laterality: bilateral Qualified Code(s): G56.03 - Carpal tunnel syndrome, bilateral upper limbs Plan: EMG upper extremities bilateral scheduled in September (4) Left Achilles tendinitis: Comment: Discussed conservative manage Code(s): M76.62 - Achilles tendinitis, left leg Category: Medical Plan: Base prescribed PT prescribed (5) Osteoarthritis, hand: Comment: X-rays June 2024 reviewed with patient. She is having functional difficulties with her hands. Code(s): M19.049 - Primary osteoarthritis, unspecified hand Category: Medical Qualifiers: Osteoarthritis type: primary Laterality: bilateral Qualified Code(s): M19.041 - Primary osteoarthritis, right hand; M19.042 - Primary osteoarthritis, left hand Plan: OT prescribed last visit. She has not been able to schedule a visit. 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) use of non-steroidal anti- inflammatories (NSAID) Complete Blood Count Auto Diff Today Z79.1 - [facility] (current) use of non- steroidal anti-inflammatories (NSAID) PT Evaluation and Treatment Today M76.62 - Achilles tendinitis, left leg AMB Joint Injection/Aspiration Today M70.62 - Trochanteric bursitis, left hip Alanine Aminotransferase Today Z79.1 - [facility] (current) use of non-steroidal anti-inflammatories (NSAID) Aspartate Amino Transferase Today Z79.1 - [facility] (current) use of non- steroidal anti-inflammatories (NSAID) Medications: New leg brace (Ankle Brace) As directed left Ankle support brace Dx: Achilles tendonitis 1 ea 0RF Changed From celecoxib 200 mg PO BID To celecoxib Take with food. Yi label. 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
== END 2024-09-04 09:42 | disposition home or self-care (01) ==
LOC: HO.RHES 09:02
PROVIDERS: PCP Internal Medicine; Visit Provider Internal Medicine Rheumatology
DX: M70.62 Trochanteric bursitis, left hip (principal); M70.61 Trochanteric bursitis, right hip; G56.03 Carpal tunnel syndrome, bilateral upper limbs; M76.62 Achilles tendinitis, left leg; M19.041 Primary osteoarthritis, right hand; M19.042 Primary osteoarthritis, left hand; Z79.1 Long term (current) use of non-steroidal anti-inflammatories (NSAID)
CPT/HCPCS: 20610; 99214

== ENCOUNTER 2024-09-17 09:40 | Outpatient (AMB) | payer OTHER, SELFPAY ==
--- NOTE | 2024-09-17 10:06 | MHC.OFFVIS ---
Vital Signs 09/17/24 10:08 Height 5 ft Weight 139 lb BMI 27.1 BP 120/72 Blood Pressure Location Rt brachial Position Sitting Pulse 50 Pulse Source Pulse Oximeter Pulse Oximetry (%) 96 Oxygen Delivery Method Room Air Intake Visit Reasons: follow up Intake Note: Patient presents for follow up on knee OA. patient states that a couple years back there was a block in spine that caused pain and she is starting to feel guillermo same pain again. Accompanied by: Daughter Allergies aspirin (ASPIRIN) Allergy (Intermediate, Verified 09/17/24 10:08) STOMACH UPSET HPI HPI follow up: Details: She has had recurrent back pain with left radiculopathy for the last week. She had similar pain years ago treated with L spine cortisone injection with benefit. Pain with prolonged sitting. Hard to get up at first. Left trochanteric bursa cortisone injection was helpful in reducing hip pain. [facility] Medical History Hand weakness Hand pain Palpitations Sinusitis Abrasion of skin of left upper arm Injury of shoulder, left Fall Bladder disorder Cough Cervical paraspinal muscle spasm Dizziness Colon cancer screening Encounter for general adult medical examination with abnormal findings Nausea & vomiting Vertigo Diabetes 1.5, managed as type 2 Chronic GERD Surgical History Status post excision of lipoma History of colonoscopy History of carpal tunnel release History of tubal ligation History of section Family History Father Lung cancer Mother Melanoma Maternal Aunt Breast cancer Daughter No problems noted. Daughter No problems noted. Daughter No problems noted. Daughter No problems noted. Other Mental health disorder Social History Household Members: None Housing: Condominium Alcohol intake: never Patient Tobacco Use Status: Never used Tobacco e-Cigarette/Vaping Use: Never Used Second Hand Smoke Exposure: No service: No Current occupational status: retired Cognitive needs: No Hearing needs: No Vision needs: Yes Physical Exam Vital Signs: Last Vital Signs Pulse 50 09/17/24 10:08 BP 120/72 09/17/24 10:08 Pulse Ox 96 09/17/24 10:08 Oxygen Delivery Method Room Air 09/17/24 10:08 BMI result Body Mass Index 27.1 Const Other: General: Comfortable Skin: No lesions seen MSK: Bilateral trochanteric bursa tenderness found on palpation. Normal range of motion of hips. Tender to palpate lumbar spinous process and paraspinal muscles. Good lumbar flexion. Negative straight leg raising test. Office Procedures AMB Joint Injection/Aspiration Joint Injection/Aspiration Details: Right trochanteric bursa Prep: site was prepped using aseptic technique Injected: 40 mg of, Kenalog, with 1 mL of and 1% plain lidocaine Procedure: Informed verbal consent was obtained. The patient tolerated the procedure well. Postprocedure protocol was discussed with patient. Coding 68589 - Large joint Procedure code (CPT) selection complete Office Meds lidocaine (PF) 10 mg/mL (1 %) injection solution Performing Provider: Sina Menjivar MD Performing Location: [facility] Documented (not given) by: Sina Menjivar MD on 09/17/24 11:52 Dose Route Admin Location Dispensed Lot Number Expiration Date [facility] [employer] 10 mg Infiltration mL Total Dispensed Waste n/a n/a Kenalog 40 mg/mL suspension for injection Performing Provider: Sina Menjivar MD Performing Location: [facility] Documented (not given) by: Sina Menjivar MD on 09/17/24 11:52 Dose Route Admin Location Dispensed Lot Number Expiration Date [facility] [employer] 40 mg intrabursal mL Total Dispensed Waste n/a n/a Assessment & Plan Assessment & Plan (1) Low back pain: Comment: She has myofascial strain contributing to her back pain. Pain is radiating to left leg. I will order x-ray of L-spine to rule out degenerative joint disease contributing to her pain. We discussed conservative management. Code(s): M54.50 - Low back pain, unspecified Category: Medical Qualifiers: Chronicity: chronic Back pain laterality: midline Sciatica presence: with sciatica Sciatica laterality: sciatica of left side Qualified Code(s): M54.42 - Lumbago with sciatica, left side; G89.29 - Other chronic pain Plan: Apply heat to back twice a day She will try lidocaine patch applied to back daily Continue Celebrex 200 mg twice a day If pain does not improve in 2 weeks, she will call office to add PT Return to clinic in 3 months. (2) Trochanteric bursitis, right hip: Comment: Pain is uncontrolled Code(s): M70.61 - Trochanteric bursitis, right hip Category: Medical Plan: Patient received trochanteric bursa cortisone injection this week Monitor blood sugars. History of diabetes. History of transient hyperglycemia after cortisone injections. She receives 1 cortisone injection at a time per visit Return to clinic in 3 months. She will need to appointments 2 weeks apart (3) Trochanteric bursitis of left hip: Comment: Recurrent. Pain is better controlled with last cortisone injection. Code(s): M70.62 - Trochanteric bursitis, left hip Category: Medical Plan: Continue Celebrex 200 mg twice a day. Labs for drug monitoring on chronic NSAID up-to-date Monitor blood sugars. History of diabetes. History of transient hyperglycemia after cortisone injections. She receives 1 cortisone injection at a time per visit Return to clinic in 3 months. She will need to appointments 2 weeks apart. (4) Carpal tunnel syndrome: Comment: Suspected bilateral right worse than left. Negative clinical testing last visit. EMG scheduled in September. Code(s): G56.00 - Carpal tunnel syndrome, unspecified upper limb Category: Medical Qualifiers: Laterality: bilateral Qualified Code(s): G56.03 - Carpal tunnel syndrome, bilateral upper limbs Plan: EMG upper extremities bilateral scheduled in October 24 (5) Left Achilles tendinitis: Comment: Improved with wearing brace but she is not compliant. Discussed conservative manage Code(s): M76.62 - Achilles tendinitis, left leg Category: Medical Plan: Encouraged compliance with brace for support PT prescribed Return to clinic in 3 months (6) Osteoarthritis, hand: Comment: X-rays June 2024 reviewed with patient. She is having functional difficulties with her hands. Code(s): M19.049 - Primary osteoarthritis, unspecified hand Category: Medical Qualifiers: Osteoarthritis type: primary Laterality: bilateral Qualified Code(s): M19.041 - Primary osteoarthritis, right hand; M19.042 - Primary osteoarthritis, left hand Plan: OT prescribed in a past visit. She will inquire with core physical therapy if she can schedule OT and PT at the same time. (7) MCC (current) use of non-steroidal anti-inflammatories (nsaid): Code(s): Z79.1 - MCC (current) use of non-steroidal anti-inflammatories (NSAID) Category: Medical Plan: See above Orders: Orders XR lumbar spine 2-3V Today M54.50 - Low back pain, unspecified AMB Joint Injection/Aspiration Today M70.61 - Trochanteric bursitis, right hip Medications: New lidocaine (PF) 10 mg Infiltration ONCE 1 mL 0RF M70.61 - Trochanteric bursitis, right hip Kenalog (triamcinolone acetonide) 40 mg intrabursal ONCE 1 mL 0RF NS M70.61 - Trochanteric bursitis, right hip lidocaine 5% leave on most painful area for up to 12 hrs. Bulgarian instructions. 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
[2024-09-17 10:08] VITALS: BP 120/72; PULSE 50; O2SAT 96; BMI 27.1
== END 2024-09-17 10:44 | disposition home or self-care (01) ==
LOC: HO.RHES 09:41
PROVIDERS: PCP Internal Medicine; Visit Provider Internal Medicine Rheumatology
DX: M54.42 Lumbago with sciatica, left side (principal); G89.29 Other chronic pain; M70.61 Trochanteric bursitis, right hip; M70.62 Trochanteric bursitis, left hip; G56.03 Carpal tunnel syndrome, bilateral upper limbs; M76.62 Achilles tendinitis, left leg; M19.041 Primary osteoarthritis, right hand; M19.042 Primary osteoarthritis, left hand; Z79.1 Long term (current) use of non-steroidal anti-inflammatories (NSAID)
CPT/HCPCS: 20610; 99214

== ENCOUNTER → 2024-09-17 09:40 | Outpatient (BNVA) | payer OTHER, SELFPAY | PROVIDERS: PCP Internal Medicine; Visit Provider Internal Medicine Rheumatology | DX: M70.61 Trochanteric bursitis, right hip (principal); M54.42 Lumbago with sciatica, left side; G89.29 Other chronic pain; M70.62 Trochanteric bursitis, left hip; G56.03 Carpal tunnel syndrome, bilateral upper limbs; M19.041 Primary osteoarthritis, right hand; M19.042 Primary osteoarthritis, left hand; M76.62 Achilles tendinitis, left leg | CPT/HCPCS: 20610; 99212; J2003; J3300 ==

== ENCOUNTER 2024-09-22 10:24 | Outpatient (REF) | payer OTHER, SELFPAY ==
--- NOTE | ~2024-09-22 | XR_ITS ---
EXAMINATION: XR LUMBOSACRAL SPINE CLINICAL INFORMATION: M54.50 - Low back pain, unspecified COMPARISON: January 02, 2024 TECHNIQUE: Three views of the lumbosacral spine. FINDINGS: There are 5 nonrib-bearing lumbar segments with a transitional sacralized L5 segment. There is stable subtle retrolisthesis at L2-3 and grade 1 anterolisthesis of L4-5. There is mild disc space narrowing at L4-5. There is facet sclerosis at L2-3, L3-4, and L4-5. Vertebral body height is maintained. XR/XR lumbar spine 2-3V IMPRESSION: Sacralized L5 segment. L4-5 again demonstrates grade 1 anterolisthesis with mild disc space narrowing and facet sclerosis with osteophytes. There are also degenerative changes at L2-3 and L3-4. Electronically signed by: Miguel Salgado MD 09/22/2024 10:44 AM EDT
== END 2024-09-22 10:25 | disposition home or self-care (01) ==
LOC: HO.HMGCX 10:24
PROVIDERS: PCP Internal Medicine; Visit Provider Internal Medicine Rheumatology
DX: M54.50 Low back pain, unspecified (principal)
CPT/HCPCS: 72100

== ENCOUNTER → 2024-09-22 10:28 | Outpatient (BNV) | payer OTHER, SELFPAY | PROVIDERS: PCP Internal Medicine; Visit Provider Radiology Diagnostic Radiology | DX: Q76.49 Other congenital malformations of spine, not associated with scoliosis (principal) | CPT/HCPCS: 72100 ==

== ENCOUNTER 2024-11-12 13:00 | Outpatient (RCR) | payer OTHER, SELFPAY | END 2024-12-16 10:04 | disposition home or self-care (01) | LOC: HO.PTCHIC 13:00 | PROVIDERS: Absent Provider Internal Medicine Rheumatology; PCP Internal Medicine; Visit Provider Podiatrist Foot & Ankle Surgery | DX: M76.61 Achilles tendinitis, right leg (principal); M76.62 Achilles tendinitis, left leg | CPT/HCPCS: 97110; 97112; 97140; 97162 ==

== ENCOUNTER 2024-11-21 12:38 | Outpatient (AMB) | payer OTHER, SELFPAY ==
--- NOTE | 2024-11-21 12:44 | MHC.OFFVIS ---
Vital Signs 11/21/24 12:51 Height 5 ft Weight 142 lb BMI 27.7 BP 130/62 Blood Pressure Location Rt brachial Position Sitting Pulse 60 Pulse Source Pulse Oximeter Pulse Oximetry (%) 97 Oxygen Delivery Method Room Air Intake Visit Reasons: Follow up 6 months Intake Note: Est pt for mgmt of chronic GERD + [place]. CC: Industrial Manufacturing Technician Required: Yes Industrial Manufacturing Technician Services: Industrial Manufacturing Technician Present Industrial Manufacturing Technician Name: [facility] Katelynn Augustine ([id number] Information Interpreted: clinical only Accompanied by: Self / Same As Patient Allergies aspirin (ASPIRIN) Allergy (Intermediate, Verified 11/21/24 12:50) STOMACH UPSET HPI HPI Follow up 6 months: Details: Assessment & Plan (1) Constipation by delayed colonic transit: Code(s): K59.01 - Slow transit constipation Category: Medical (2) Chronic GERD: Code(s): K21.9 - Gastro-esophageal reflux disease without esophagitis Category: Medical Plan [place] #V live Her GERD remains well controlled on her omeprazole. She also uses Colace for her constipation. We review the x-ray and there is evidence that she could have a pinched nerve in her thoracic spine causing the pain in her ribcage. She also has lumbar spondylosis with anterolisthesis at L4-L5 that could be a problem in the future. That this diagnosis I encouraged her to talk to her primary care provider about possible physical therapy referral and then either to pain management or to an orthopedic spine provider. Return office visit in 6 months Medications: Refilled omeprazole 20 mg PO BID 180 caps 1RF 90 days K21.9 - Gastro-esophageal reflux disease without esophagitis docusate sodium (Colace) 200 mg (2 x 100 mg) PO DAILY 180 caps 1RF 90 days TODAY'S VISIT [place] # PFSH Medical History Hand weakness Hand pain Palpitations Sinusitis Abrasion of skin of left upper arm Injury of shoulder, left Fall Bladder disorder Cough Cervical paraspinal muscle spasm Dizziness Colon cancer screening Encounter for general adult medical examination with abnormal findings Nausea & vomiting Vertigo Diabetes 1.5, managed as type 2 Chronic GERD Surgical History Status post excision of lipoma History of colonoscopy History of carpal tunnel release History of tubal ligation History of section Family History Father Lung cancer Mother Melanoma Maternal Aunt Breast cancer Daughter No problems noted. Daughter No problems noted. Daughter No problems noted. Daughter No problems noted. Other Mental health disorder Social History Household Members: None Housing: Condominium Alcohol intake: never Patient Tobacco Use Status: Never used Tobacco e-Cigarette/Vaping Use: Never Used Second Hand Smoke Exposure: No service: No Current occupational status: retired Cognitive needs: No Hearing needs: No Vision needs: Yes Review of Systems Const Denies fatigue, Denies fever(s), Denies night sweats, Denies poor appetite and Denies weight loss ENT Reports Normal hearing present, Denies dental pain, Denies dysphagia, Denies hearing loss, Denies mouth pain, Denies odynophagia, Denies throat swelling, Denies tongue swelling and Reports other (Dentition adequate) Card Reports no additional complaints Resp Reports no additional complaints GI Details: Denies abdominal pain, Denies melena, Denies bloating, Denies hematochezia, Reports constipation, Denies GI cramping, Denies dysphagia, Denies excessive flatus, Denies early satiety, Reports heartburn, Denies diarrhea, Denies nausea, Denies odynophagia, Denies vomiting and Denies hematemesis Skin/Breast Denies pruritus, Denies lesions, Denies rash and Denies jaundice Neuro Reports Normal hearing present and Denies Abnormal speech present Endo Denies fatigue Aller/Immun Denies throat swelling and Denies tongue swelling Physical Exam Vital Signs: Last Vital Signs Pulse 60 11/21/24 12:51 BP 130/62 11/21/24 12:51 Pulse Ox 97 11/21/24 12:51 Oxygen Delivery Method Room Air 11/21/24 12:51 BMI result Body Mass Index 27.7 Const General: cooperative, no acute distress, well developed and well groomed Nutritional Appearance: average body habitus and well nourished Orientation/consciousness: oriented to person, oriented to place and oriented to time Limitations: language barrier HEENT Head: Yes normocephalic and Yes atraumatic Eyes General: appearance normal, both eyes and all related structures Pupils: Equal, round and reactive pupils present Neck Neck: Yes normal visual inspection and Yes no lymphadenopathy Thyroid: Thyroid normal Resp Effort & Inspection: normal respiratory effort and able to speak in complete sentences Auscultation: clear to auscultation bilaterally Cardio Rate: regular rate Rhythm: regular rhythm Heart sounds: Normal, physiologic split S2 sound present Peripheral pulses: radial pulses present and posterior tibial pulses present GI Inspection: No distended and No Abdominal panniculus present Palpation (GI): Soft to palpation, nontender, no guarding, not rigid and No hepatosplenomegaly present Percussion: Yes normal to percussion Auscultation: normal bowel sounds Rectal Exam - Female: deferred Skin General skin exam: no rashes or lesions noted, turgor normal, skin not dry, no jaundice, No spider nevi and no striae Rashes: no rashes Nails: normal Neuro General: oriented to person, oriented to place and oriented to time Cranial nerves: Yes Equal, round and reactive pupils present and Yes Normal hearing present Speech: No Abnormal speech present Extrem General: Yes normal to inspection, No clubbing, No cyanosis and No edema Psych Appearance: grossly normal and well kempt Mental Status: mental status grossly normal Speech and movement: Normal speech and movement present Affect: normal affect Attitude: cooperative Thought process: Normal thought process present and not confabulating Thought content: Normal thought content present Insight: Good insight present (Psych) Judgement: Good judgement present (Psych) Assessment & Plan Assessment & Plan (1) Pre-op examination: Code(s): Z01.818 - Encounter for other preprocedural examination Category: Medical Plan [place] #V live Her GERD remains well controlled on her omeprazole. She also uses Colace for her constipation. She is due for a screening colonoscopy her last being in 2016 with a negative study and a negative family history. She denies any cardiac or respiratory problems. There are no prior problems with anesthesia or sedation. There are no infectious disease problems. Return office visit in 6 months and after the colonoscopy Orders: Orders Comprehensive Met. Panel Today Z01.818 - Encounter for other preprocedural examination Referrals GI Procedure Notification Z01.818 - Encounter for other preprocedural examination Medications: New peg 3350-electrolytes 236-22.74-6.74 -5.86 gram (Golytely) until fecal effluent is clear; do not exceed a total volume of 2,000 mL 240 mL PO Q10M 4,000 mL 0RF 1 day Z12.11 - Encounter for screening for malignant neoplasm of colon bisacodyl (Dulcolax (bisacodyl)) 10 mg (2 x 5 mg) PO BEDTIME 4 tabs 0RF 2 days Refilled docusate sodium (Colace) 200 mg (2 x 100 mg) PO DAILY 180 caps 1RF 90 days omeprazole 20 mg PO BID 180 caps 1RF 90 days K21.9 - Gastro-esophageal reflux disease without esophagitis Coding Level of Care Code New Pt Level 3 (68546) Diagnoses Pre-op examination Z01.818 Time Spent (min) 38
[2024-11-21 12:51] VITALS: BP 130/62; PULSE 60; O2SAT 97; BMI 27.7
== END 2024-11-21 14:08 | disposition home or self-care (01) ==
LOC: HO.HGI 12:39
PROVIDERS: PCP Internal Medicine; Visit Provider Nurse Practitioner
DX: Z01.818 Encounter for other preprocedural examination (principal); Z12.11 Encounter for screening for malignant neoplasm of colon
CPT/HCPCS: 99024

== ENCOUNTER → 2024-11-21 12:38 | Outpatient (BNVA) | payer OTHER, SELFPAY | PROVIDERS: PCP Internal Medicine; Visit Provider Nurse Practitioner | DX: Z01.818 Encounter for other preprocedural examination (principal) | CPT/HCPCS: 99212 ==

== ENCOUNTER 2024-12-12 13:52 | Outpatient (REF) | payer OTHER, SELFPAY ==
--- NOTE | 2024-12-12 13:55 | EMG_ITS ---
Chief complaint: Right hand numbness, history of osteoarthritis. Denies symptoms on left side. History of CTR left 12 years ago. Reason for referral: Evaluate for Carpal Tunnel Syndrome Referred by: Dr. Menjivar Procedure done: Upper extremity NCS/EMG Precautions and/or limitations: Difficulty tolerating test The limb temperature was monitored continuously and remained between 32-36 degrees C during the performance of the NCS. Nerve Conduction Studies Anti Sensory Summary Table ?Stim Site NR Onset (ms) Norm Onset (ms) Peak (ms) Norm Peak (ms) O-P Amp (?V) Norm O-P Amp Site1 Site2 Delta-0 (ms) Dist (cm) Tray (m/s) Norm Tray (m/s) Left Median Anti Sensory (2nd Digit) Wrist ? 2.8 3.4 <3.6 75.8 >10 Wrist 2nd Digit 2.8 14.0 50 Right Median Anti Sensory (2nd Digit) Wrist ? 3.0 4.0 <3.6 19.4 >10 Wrist 2nd Digit 3.0 14.0 47 Left Ulnar Anti Sensory (5th Digit) Wrist ? 2.1 2.9 <3.7 43.3 >15.0 Wrist 5th Digit 2.1 14.0 67 Right Ulnar Anti Sensory (5th Digit) Wrist ? 2.4 3.0 <3.7 40.9 >15.0 Wrist 5th Digit 2.4 14.0 58 Motor Summary Table ?Stim Site NR Onset (ms) Norm Onset (ms) O-P Amp (mV) Norm O-P Amp iAmp (mV) Amp (1st) (%) Site1 Site2 Delta-0 (ms) Dist (cm) Tray (m/s) Norm Tray (m/s) Left Median Motor (Abd Poll Brev) Wrist ? 3.3 <3.9 10.4 >4.5 13.5 100.0 Elbow Wrist 3.3 19.0 58 >45 Elbow ? 6.6 10.8 14.1 103.8 Right Median Motor (Abd Poll Brev) Wrist ? 3.9 <3.9 7.3 >4.5 8.2 100.0 Elbow Wrist 3.3 18.0 55 >45 Elbow ? 7.2 7.6 8.7 104.1 Left Ulnar Motor (Abd Dig Minimi) Wrist ? 2.6 <3.0 7.3 >5 8.4 100.0 B Elbow Wrist 3.0 17.0 57 >45 B Elbow ? 5.6 6.8 7.7 93.2 A Elbow B Elbow 1.5 10.0 67 >45 A Elbow ? 7.1 6.8 8.0 93.2 Right Ulnar Motor (Abd Dig Minimi) Wrist ? 2.9 <3.0 7.0 >5 7.7 100.0 B Elbow Wrist 2.6 16.0 62 >45 B Elbow ? 5.5 6.8 7.5 97.1 A Elbow B Elbow 1.9 10.0 53 >45 A Elbow ? 7.4 6.0 6.7 85.7 Comparison Summary Table ?Stim Site NR Peak (ms) Norm Peak (ms) P-T Amp (?V) Site1 Site2 Delta-P (ms) Norm Delta (ms) Right Median/Radial Dig I Comparison (Digit 1 - 10cm) Median ? 3.2 <2.9 102.9 Median Radial 0.8 Radial ? 2.4 <2.8 26.8 EMG ?Side Muscle Nerve Root Ins Act Fibs Psw Amp Dur Poly Recrt Int Pat Comment Right 1stDorInt Ulnar C8-T1 Nml Nml Nml Nml Nml 0 Nml Complete Right FlexCarRad Median C6-7 Nml Nml Nml Nml Nml 0 Nml Complete Right Biceps Musculocut C5-6 Nml Nml Nml Nml Nml 0 Nml Complete Right Triceps Radial C6-7-8 Nml Nml Nml Nml Nml 0 Nml Complete Right Deltoid Axillary C5-6 Nml Nml Nml Nml Nml 0 Nml Complete FINDINGS: Right median sensory nerve showed prolonged peak latency. Significant interlatency difference between right median radial sensory nerves. All other nerves tested were within normal. Concentric needle EMG was performed in selected muscles of the right upper extremity. Study did not reveal signs of electric abnormalities as shown in the table above. IMPRESSION: 1. This is an abnormal study. 2. There is electrodiagnostic evidence for right mild median neuropathy at the wrist, consistent with carpal tunnel syndrome. 3. There is no electrodiagnostic evidence for ulnar neuropathy, brachial plexopathy, or cervical radiculopathy. 4. No evidence for median neuropathy on the left. Thank you for your kind referral. Reny Beach MD, SHERLY Board Certified, [place] [employer] and Rehabilitation (ABPMR) Board Certified, [place] Board of Electrodiagnostic Medicine (ABEM) CODIN [phone], 1 extremity MTDD
--- OUTSIDE RECORDS SUMMARY | 2024-12-12 15:53 | XMS_ITS | Data Portability ---
Author Organization [employer] [facility] Address [address] [place] [phone] Care Team Providers Care Residential Leasing Agent Name Role Phone HIM CCA OTHER TANA OLIVIA Primary Care Provider Assessment Encounter Date Assessment Date Assessment LastModified by Organization Details LastModified Time 07/02/2024 07/02/2024 74 yo F with 5 days of productive cough, shortness of breath, rhinorrhea, nasal congestion. No CP, F/C, abd pain, N/V, LE edema. Patient has been using her daughter's albuterol inhaler with minimal improvement. No hx asthma or COPD. No tobacco use. VS wnl with SpO2 95% on RA. Lungs with scattered wheezing and rhonchi throughout posterior lung downing. COVID and flu negative. Pt with likely acute viral bronchitis. Discussed self limiting course of disease. Symptoms improved with 2 [id number] duonebs Sent rx for symbicort to use BID until sxs improve. Sent rx for flonase to use BID and tessalon perles PRN cough. Red flags reviewed [email or web address] Not available 07/02/2024 15:51:54 Plan of Treatment Reminders Order Date Submit Date Provider Last Modified By Organization Details Last Modified Time Details Appointments None recorded. Lab rapid SARS CoV 2 Ag, QL IA, respiratory specimen 2024 025 [email or web address], [phone] 5 11:14:25 rapid flu (A+B) 2024 025 [email or web address] [address], [phone] 5 11:14:25 Referral None recorded. Procedures None recorded. Surgeries None recorded. Imaging None recorded. Medication Orders Symbicort 80 mcg-4.5 mcg/actuati on HFA aerosol inhaler [address] [facility] #67253, [address] [place] [address], [phone], 5 11:14:33 benzonatate 100 mg capsule 2024 025 [facility] #19365, [address] [place] [address], [phone], 11:14:34 Flonase Allergy Relief 50 mcg/actuati on nasal spray,suspe nsion [address] [facility] #03043, [address] [place] [address], [phone], 11:14:33 ipratropium 0.5 mg-albutero l 3 mg (2.5 mg base)/3 mL nebulizatio n soln 2024 [email or web address] [place] [address] #58160, [address] [place] [address], [id number], 5 11:14:25 ipratropium 0.5 mg-albutero l 3 mg (2.5 mg base)/3 mL nebulizatio n soln 2024 [email or web address] [place] [address] #76128, [address] [place] [address], [phone], 11:14:25 Patient TargetsNo targets recorded. Patient InstructionsNo instructions recorded. Reason for Referral None Reported. Results Created Date Observation Date Name Description Value Unit Range Abnormal Flag Note LastModifiedBy Organization Detail LastModifiedTime 07/03/19 25 07/02/2024 rapid flu (A+B) Flu negati ve Not Available Main - Inst ed [address] [place] [address], [phone] 07/02/2024 11:11:38 07/03/19 25 07/02/2024 rapid SARS CoV 2 Ag, QL IA, respi rator y speci men rapid SARS CoV 2 Ag, QL IA, respiratory specimen negati ve Not Available Main - [facility] ed [address] [place], [address] 07/02/2024 11:11:37 Result Notes None recorded. Medical Equipment None Reported. Allergies Allergen ID Allergen Name Allergen Category Reaction Reaction Severity Criticality Documentation Date Start Date Code Code System Note Provider Name and Address Organization Details Recorded Time 51591 aspirin medicatio n Not available Not available Not available 07/01/2024 1191 RxNorm Not Available [facility] - production 22:03:31 Medications Name Sig Start Date Stop Date Status Note LastModified by Organization Details LastModified Time levothyroxine 75 mcg tablet TAKE 1 TABLET BY MOUTH DAILY active Not Available Not Available No t Available cyanocobalamin (vit B-12) 500 mcg tablet TAKE 1 TABLET BY MOUTH ONCE DAILY active Not Available Not Available No t Available benzonatate 100 mg capsule TAKE 1 CAPSULE BY MOUTH THREE TIMES DAILY NEEDED FOR COUGH active Not Available Not Available No t Available docusate sodium 100 mg capsule TAKE 2 CAPSULES BY MOUTH ONCE DAILY active Not Available Not Available No t Available omeprazole 20 mg capsule,delaye d release TAKE 1 CAPSULE BY MOUTH TWICE DAILY active Not Available Not Available No t Available fluticasone propionate 50 mcg/actuation nasal spray,suspensi on SHAKE LIQUID AND USE 1 SPRAY IN EACH NOSTRIL TWICE DAILY active Not Available Not Available No t Available budesonide-for moterol HFA 80 mcg-4.5 mcg/actuation aerosol inhaler INHALE 2 PUFFS BY MOUTH TWICE DAILY FOR 7 DAYS active Not Available Not Available No t Available [facility] COVID-19 Ag Self Test kit TEST DIRECTED TODAY active Not Available Not Available No t Available Vitals Date Recorded Respiratory rate Oxygen saturation Oxygen saturation in Arterial blood by Pulse oximetry Body height Body weight Heart rate Body temperature Systolic And Diastolic Provider Name and Address Organization Details Last Updated DateTime 5 14 /min 95 % 95 % 152.4 cm 33120.6 g 79 /min 98 [degF] 138/88 mm[Hg] Not Available [facility] - production 11:09:21 Social History None recorded. Functional Status None recorded. Mental Status None recorded. Family History Nothing Reported. Medical History No medical history recorded. Gynecological HistoryNo gynecological history recorded. Obstetrics History GPAL:G 0 P 0 0 0 0 Past Encounters Encounter ID Performer Location Encounter Start Date Encounter Closed Date Diagnosis/Indication Diagnosis SNOMED-CT Code Diagnosis ICD10 Code Diagnosis IMO Codes Diagnosis Note [id number] ZEFERINO OROZCO MD Main - [facility] [address] [place] [phone] 07/02/2024 11:09:11 07/02/2024 17:35:11 Acute bronchitis 25382191 J20.9 [id number] Health Concerns Section Related Observation LastModified by Organization Detai ls LastModified Time None Recorded Concern Status LastModified by Organization Details LastModified Time None Recorded Advance Directives Directive None Recorded Payers Insurance Date Sequence Insurance Name Policy Number Policy Montes Covered Member ID Montes Member ID Guarantor Name 07/01/2024 1 [facility] - DOS ON OR AFTER 2022 - DUAL ELIGIBLE - [facility] OPTIONS AND ONE CARE (MEDICARE REPLACEMENT/AD VANTAGE - HMO) Marilyn Engle [id number] Marilyn Engle Notes Date Note Type Note Provider Name and Address Organization Details Recorded Time 07/02/2024 text/html CRC Nurse Triage Notes (Tavia Pickard): Reason For Request: SOB/cough Patient Reports: Cough, fever greater than 2 days ; Sputum increase ; Cough; Shortness of breath with exertion Denies: Increased work of breathing/labored with or without fever Unable to speak in full sentences without distress Discoloration of skin -cyanosis Needs to sleep sitting up, can t catch breath Shortness of breath in setting of confusion COPD COVID Exposure Pain with inspiration Chief Complaints: Common Cold, Cough, Fever PMH: Diabetes Mellitus Type 2 PMH Reviewed at 07/01/2024 - 22:03 Allergies Reviewed at 07/01/2024 - :03 Comments: Member's daughter called in reporting member woke up last Sunday feeling achy and run down. Member has a runny nose, cough, congestion, fevers, chills, and headaches. Having shortness of breath and using her daughters albuterol inhaler intermittently to help with the breathing and coughing. Some chest pain when she coughs. Taking tylenol for pain and drinking tea with honey and lemon. CRC RN verified identity via name/. Education provided on expected response time and the member's daughter was advised to monitor reported signs/symptoms. Member in agreement to seek emergency treatment if needed. Aware that due to being too close to end time, member's visit will be tomorrow on 07/02/24. Janeth Pickard RN Lead Developer Organization Information for Gustavo [facility] [employer] Legal Name: [facility] Transportation Address: [address] [place] [address], [place] [address], Income Tax Manager: Mode Cortes MD [place] No.: [id number] Lead Developer POC Test Results from Gustavo Stone Rapid COVID antigen (11:03:09) COVID: - Rapid influenza antigen (11:03:09) Flu: - .................... .................... .................... .................... .................... .................... .................... . Lead Developer Note From Gustavo Stone: Patient alert and oriented complaints of nasal congestion, frequent nonproductive, cough, sore throat, and tiredness times six days. Patient reports coughing keeps her up at night. Also reports headache. Patient using OTC cough syrup with little relief. No history of asthma, COPD, inhalers or other pulmonary history. Patient denies chest pain, nausea, vomiting, diarrhea, fevers, chills, weakness, dizziness, or any other pain or complaints. Patient, pink, warm and dry, lung sounds expiratory wheeze, bronchi throughout, positive full sentences, positive increased work of breathing, negative use of accessory muscles to breathe, abdomen, soft, nontender, extremities, unremarkable, no edema noted. Patient negative for Covid and flu via rapid POC. [facility] orders duo nebulizer now and will prescribe Symbicort, Flonase to patient s local pharmacy. Family reports they can sisal picker prescription today. Medication administered as ordered using five rights without complication. Patient reports some relief of breathing symptoms. Red flags, patient education discussed. Patient and caregiver demonstrating understanding of care and plan. [facility] Lab Orders: rapid SARS CoV 2 Ag, QL IA, respiratory specimen: Performed rapid flu (A+B): Performed [facility] Medication Orders: ipratropium 0.5 mg-albuterol 3 mg (2.5 mg base)/3 mL nebulization soln: Administered ipratropium 0.5 mg-albuterol 3 mg (2.5 mg base)/3 mL nebulization soln: Administered .................... .................... .................... .................... .................... .................... .................... . [facility] Consulted: Zeferino Orozco .................... .................... .................... .................... .................... .................... .................... . Disposition: Fulfilled ZEFERINO OROZCO MD [address] [facility], [place], [address], MYLES - JUNIOR MCCONNELL 07/02/2024 15:52:12 OBGyn Episode No OBEpisode recorded.
== END 2024-12-12 13:53 | disposition home or self-care (01) ==
LOC: HO.NEURO 13:52
PROVIDERS: PCP Internal Medicine; Visit Provider Internal Medicine Rheumatology
DX: G56.03 Carpal tunnel syndrome, bilateral upper limbs (principal)
CPT/HCPCS: 95886; 95911

== ENCOUNTER → 2024-12-12 13:55 | Outpatient (BNV) | payer OTHER, SELFPAY | PROVIDERS: PCP Internal Medicine; Visit Provider Physical Medicine & Rehabilitation | DX: G56.11 Other lesions of median nerve, right upper limb (principal) | CPT/HCPCS: 95886; 95911 ==

== ENCOUNTER 2024-12-25 12:26 | Outpatient (AMB) | payer OTHER, SELFPAY ==
[2024-12-25 12:42] VITALS: BP 100/80; PULSE 61; O2SAT 96; BMI 28.5
--- NOTE | 2024-12-25 12:42 | A.OFFVIS_ITS ---
Vital Signs 12/25/24 12:42 Height 5 ft Weight 145 lb 15.136 oz BMI 28.5 BP 100/80 Blood Pressure Location Rt brachial Position Sitting Pulse 61 Pulse Source Pulse Oximeter Pulse Oximetry (%) 96 Oxygen Delivery Method Room Air Intake Visit Reasons: 3 Months Accompanied by: Self / Same As Patient Allergies aspirin (ASPIRIN) Allergy (Intermediate, Verified 12/25/24 12:42) STOMACH UPSET HPI HPI 3 Months: Details: Left trochanteric bursa cortisone injections lasting 2 months. Right trochanteric bursa cortisone injection is lasting 3 months. [facility] Medical History Hand weakness Hand pain Palpitations Sinusitis Abrasion of skin of left upper arm Injury of shoulder, left Fall Bladder disorder Cough Cervical paraspinal muscle spasm Dizziness Colon cancer screening Encounter for general adult medical examination with abnormal findings Nausea & vomiting Vertigo Diabetes 1.5, managed as type 2 Chronic GERD Surgical History Status post excision of lipoma History of colonoscopy History of carpal tunnel release History of tubal ligation History of section Family History Father Lung cancer Mother Melanoma Maternal Aunt Breast cancer Daughter No problems noted. Daughter No problems noted. Daughter No problems noted. Daughter No problems noted. Other Mental health disorder Social History Household Members: None Housing: Condominium Alcohol intake: never Patient Tobacco Use Status: Never used Tobacco e-Cigarette/Vaping Use: Never Used Second Hand Smoke Exposure: No service: No Current occupational status: retired Cognitive needs: No Hearing needs: No Vision needs: Yes Physical Exam Vital Signs: Last Vital Signs Pulse 61 12/25/24 12:42 BP 100/80 12/25/24 12:42 Pulse Ox 96 12/25/24 12:42 Oxygen Delivery Method Room Air 12/25/24 12:42 BMI result Body Mass Index 28.5 Const Other: General: Comfortable Skin: No lesions seen MSK: Bilateral trochanteric bursa tenderness found on palpation. Normal range of motion of hips. Assessment & Plan Assessment & Plan (1) Low back pain: Comment: She has myofascial strain contributing to her back pain along with lumbar spondylosis. Pain is radiating to left leg. She has not started PT Code(s): M54.50 - Low back pain, unspecified Category: Medical Qualifiers: Chronicity: chronic Back pain laterality: midline Sciatica presence: with sciatica Sciatica laterality: sciatica of left side Qualified Code(s): M54.42 - Lumbago with sciatica, left side; G89.29 - Other chronic pain Plan: Continue to apply heat to back twice a day Continue lidocaine patch applied to back daily Continue Celebrex 200 mg twice a day Labs for drug monitoring chronic NSAID ordered I have asked her to schedule physical therapy Return to clinic in 3 months. (2) Trochanteric bursitis, right hip: Comment: Recurrent. Pain is uncontrolled Code(s): M70.61 - Trochanteric bursitis, right hip Category: Medical Plan: Return to clinic in 2-3 weeks for right trochanteric bursa injection. Monitor blood sugars. History of diabetes. History of transient hyperglycemia after cortisone injections. She receives 1 cortisone injection at a time per visit (3) Trochanteric bursitis of left hip: Comment: Recurrent. Pain is uncontrolled. Trochanteric bursa cortisone injections this only lasting 2 months. In the past she has had evaluation from [facility] who have not advised pursuing surgery. Code(s): M70.62 - Trochanteric bursitis, left hip Category: Medical Plan: Patient received left trochanteric bursa cortisone injection this visit Continue Celebrex 200 mg twice a day. Labs for drug monitoring on chronic NSAID ordered Monitor blood sugars. History of diabetes. History of transient hyperglycemia after cortisone injections. She receives 1 cortisone injection at a time per visit Return to clinic in 3 months. She will need to appointments 2 weeks apart. (4) Carpal tunnel syndrome: Comment: Symptomatic bilaterally. EMG confirms right median neuropathy. Code(s): G56.00 - Carpal tunnel syndrome, unspecified upper limb Category: Medical Qualifiers: Laterality: bilateral Qualified Code(s): G56.03 - Carpal tunnel syndrome, bilateral upper limbs Plan: Bilateral cock-up wrist braces prescribed to wear at night (5) Left Achilles tendinitis: Comment: Improved with wearing brace but she is not compliant. She did not have benefit with PT. Discussed conservative manage Code(s): M76.62 - Achilles tendinitis, left leg Category: Medical Plan: Continue bracing Continue Celebrex 200 mg twice a day. I will consider changing NSAID next visit Labs for drug monitoring on chronic NSAID ordered (6) Osteoarthritis, hand: Comment: X-rays June 2024 reviewed with patient. She is having functional difficulties with her hands. She has not started OT. Code(s): M19.049 - Primary osteoarthritis, unspecified hand Category: Medical Qualifiers: Osteoarthritis type: primary Laterality: bilateral Qualified Code(s): M19.041 - Primary osteoarthritis, right hand; M19.042 - Primary osteoarthritis, left hand Plan: OT prescribed in a past visit. She can only schedule physical therapy or OT. She will focus on PT for her back before starting OT. 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) use of non-steroidal anti-inflammatories (NSAID) Aspartate Amino Transferase Today Z79.1 - terminal make up operator (current) use of non- steroidal anti-inflammatories (NSAID) Creatinine Today Z79.1 - intermediate (current) use of non-steroidal anti- inflammatories (NSAID) Medications: Refilled celecoxib take with food 200 mg PO BID 180 caps 1RF [Bilateral cock up wrist braces] Wear at night 2 ea 0RF Carpal tunnel syndrome Coding Level of Care Code Est Pt Level 4 (11857) Complex EM visit Add On G2211 Diagnoses Chronic midline low back pain with left-sided sciatica M54.42; G89.29 Chronicity: chronic Back pain laterality: midline Sciatica presence: with sciatica Sciatica laterality: sciatica of left side Trochanteric bursitis, right hip M70.61 Trochanteric bursitis of left hip M70.62 Bilateral carpal tunnel syndrome G56.03 Laterality: bilateral Left Achilles tendinitis M76.62 Primary osteoarthritis of both hands M19.041; M19.042 Osteoarthritis type: primary Laterality: bilateral 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
--- OUTSIDE RECORDS SUMMARY | 2024-12-25 15:16 | XMS_ITS | Data Portability ---
Author Organization [employer] [facility] Address [address] [place] [phone] Care Team Providers Care Transmission Specialist Name Role Phone HIM CCA OTHER TANA [...] course of disease. Symptoms improved with 2 [id number] duonebs Sent rx for symbicort to use BID until sxs improve. Sent rx for flonase to use BID and tessalon perles PRN cough. Red flags reviewed [email or web address] Not available 07/02/2024 15:51:54 Plan of Treatment Reminders Order Date Submit Date Provider Last Modified By Organization Details Last Modified Time Details Appointments None recorded. Lab rapid SARS CoV 2 Ag, QL IA, respiratory specimen 2024 025 [email or web address] [address], [phone] 5 11:14:25 rapid flu (A+B) 2024 025 [email or web address] [address], [phone] 5 11:14:25 Referral None recorded. Procedures None recorded. Surgeries None recorded. Imaging None recorded. Medication Orders Symbicort 80 mcg-4.5 mcg/actuati on HFA aerosol inhaler 2024 025 [facility] #65651, [address] [place] [address], [phone], 5 11:14:33 benzonatate 100 mg capsule 2024 025 [facility] #60669, [address] [place] [address], [id number], 11:14:34 Flonase Allergy Relief 50 mcg/actuati on nasal spray,suspe nsion 2024 025 [facility] #91398, [address] [place] [address], [phone], 11:14:33 ipratropium 0.5 mg-albutero l 3 mg (2.5 mg base)/3 mL nebulizatio n soln 2024 [email or web address] [place] [address] #88353, [address] [place] [address], [id number], 5 11:14:25 ipratropium 0.5 mg-albutero l 3 mg (2.5 mg base)/3 mL nebulizatio n soln 2024 [email or web address] [place] [address] #18387, [address] [place] [address], [phone], 11:14:25 Patient TargetsNo targets recorded. Patient InstructionsNo instructions recorded. Reason for Referral None Reported. Results Created Date Observation Date Name Description Value Unit Range Abnormal Flag Note LastModifiedBy Organization Detail LastModifiedTime 07/03/19 25 07/02/2024 rapid flu (A+B) Flu negati ve Not Available Main - Inst ed [address] [place] [address], [phone] 07/02/2024 11:11:38 07/03/19 25 07/02/2024 rapid SARS CoV 2 Ag, QL IA, respi rator y speci men rapid SARS CoV 2 Ag, QL IA, respiratory specimen negati ve Not Available Main - [facility] ed [address] [place], [phone] 07/02/2024 11:11:37 Result Notes None recorded. Medical Equipment None Reported. Allergies Allergen ID Allergen Name Allergen Category Reaction Reaction Severity Criticality Documentation Date Start Date Code Code System Note Provider Name and Address Organization Details Recorded Time 40546 aspirin medicatio n Not available Not available Not available 07/01/2024 1191 RxNorm Not Available [facility] - production 22:03:31 Medications Name Sig Start [...] /min 95 % 95 % 152.4 cm 70138.6 g 79 /min 98 [degF] 138/88 mm[Hg] [...] ICD10 Code Diagnosis IMO Codes Diagnosis Note [id number] ZEFERINO OROZCO MD Main - [facility] [address] [place] [phone] 07/02/2024 11:09:11 07/02/2024 17:35:11 Acute bronchitis 13214720 J20.9 [id number] Health Concerns Section Related Observation LastModified by Organization Detai ls LastModified Time None Recorded Concern Status LastModified by Organization Details LastModified Time None Recorded Advance Directives Directive None Recorded Payers Insurance Date Sequence Insurance Name Policy Number Policy Montes Covered Member ID Montes Member ID Guarantor Name 07/01/2024 1 [facility] - DOS ON OR AFTER 2022 - DUAL ELIGIBLE - [facility] OPTIONS AND ONE CARE (MEDICARE REPLACEMENT/AD VANTAGE - HMO) Marilyn Engle [id number] Marilyn Engle Notes Date Note Type Note [...] be tomorrow on 07/02/24. Janeth Pickard RN Water Valve Mechanic Organization Information for Gustavo Stone [employer] Legal Name: [facility] Transportation Address: [address] [place] [address], [place] [address], Preschool Assistant Principal: Mode Cortes MD [place] No.: [id number] Water Valve Mechanic POC Test Results from [facility] Stone Rapid COVID antigen (11:03:09) COVID: - Rapid influenza antigen (11:03:09) Flu: - .................... .................... .................... .................... .................... .................... .................... . Water Valve Mechanic Note From Gustavo Stone: Patient alert and [...] for Covid and flu via rapid POC. [facility] orders duo nebulizer now and will prescribe Symbicort, Flonase to patient s local pharmacy. Family reports they can steel pickler prescription today. Medication administered as ordered using five rights without complication. Patient reports some relief of breathing symptoms. Red flags, patient education discussed. Patient and caregiver demonstrating understanding of care and plan. [facility] Lab Orders: rapid SARS CoV 2 Ag, QL IA, respiratory specimen: Performed rapid flu (A+B): Performed [facility] Medication Orders: ipratropium 0.5 mg-albuterol 3 mg (2.5 mg base)/3 mL nebulization soln: Administered ipratropium 0.5 mg-albuterol 3 mg (2.5 mg base)/3 mL nebulization soln: Administered .................... .................... .................... .................... .................... .................... .................... . [facility] Consulted: Zeferino Orozco .................... .................... .................... .................... .................... .................... .................... . Disposition: Fulfilled ZEFERINO OROZCO MD [address] [facility],[address], [place], [phone], MYLES - JUNIOR MCCONNELL 07/02/2024 15:52:12 OBGyn Episode No OBEpisode recorded.
== END 2024-12-25 13:06 | disposition home or self-care (01) ==
LOC: HO.RHES 12:27
PROVIDERS: PCP Internal Medicine; Visit Provider Internal Medicine Rheumatology
DX: M54.42 Lumbago with sciatica, left side (principal); M70.61 Trochanteric bursitis, right hip; M70.62 Trochanteric bursitis, left hip; G89.29 Other chronic pain; G56.03 Carpal tunnel syndrome, bilateral upper limbs; M76.62 Achilles tendinitis, left leg; M19.041 Primary osteoarthritis, right hand; M19.042 Primary osteoarthritis, left hand; Z79.1 Long term (current) use of non-steroidal anti-inflammatories (NSAID)
CPT/HCPCS: 20610; 99214

== ENCOUNTER → 2024-12-25 12:26 | Outpatient (BNVA) | payer OTHER, SELFPAY | PROVIDERS: PCP Internal Medicine; Visit Provider Internal Medicine Rheumatology | DX: M54.42 Lumbago with sciatica, left side (principal); M70.61 Trochanteric bursitis, right hip; M70.62 Trochanteric bursitis, left hip; G56.03 Carpal tunnel syndrome, bilateral upper limbs; M76.62 Achilles tendinitis, left leg; M19.042 Primary osteoarthritis, left hand; M19.041 Primary osteoarthritis, right hand; Z79.1 Long term (current) use of non-steroidal anti-inflammatories (NSAID) | CPT/HCPCS: 20610; 99212; J2003; J3301 ==

== ENCOUNTER 2024-12-29 08:06 | Outpatient (REF) | payer OTHER, SELFPAY ==
[2024-12-29 10:59] LABS: Alanine Aminotransferase 13 U/L (0-31); Albumin Level 4.0 g/dL (3.5-5.0); Alkaline Phosphatase 61 U/L (39-117); Anion Gap 12 (12-20); Aspartate Amino Transferase 19 U/L (5-31); Blood Urea Nitrogen 24 mg/dL (9-16); Calcium 9.6 mg/dL (8.4-10.2); Carbon Dioxide 27 mmol/L (22-29); Chloride 110 mmol/L (96-108); Estimated Glomerular Filt Rate > 60; Potassium 4.5 mmol/L (3.3-5.1); Sodium 144 mmol/L (135-145); Total Protein 6.6 g/dL (6.5-8.0)
[2024-12-29 11:19] LABS: Microalbum/Creatinine Ratio Ur 13.4 ug/mg cr (<30)
== END 2024-12-29 08:07 | disposition home or self-care (01) ==
LOC: HO.HMGCLDS 08:06
PROVIDERS: Absent Provider Internal Medicine Rheumatology; PCP Internal Medicine; Visit Provider Internal Medicine
DX: K21.9 Gastro-esophageal reflux disease without esophagitis (principal); K59.01 Slow transit constipation; N32.9 Bladder disorder, unspecified; E13.9 Other specified diabetes mellitus without complications; E03.8 Other specified hypothyroidism; E66.09 Other obesity due to excess calories; Z68.31 Body mass index [BMI] 31.0-31.9, adult; F41.1 Generalized anxiety disorder; R42 Dizziness and giddiness; Z79.1 Long term (current) use of non-steroidal anti-inflammatories (NSAID)
CPT/HCPCS: 36415; 80053; 82043; 82570; 83036; 83721; 84443

== ENCOUNTER 2024-12-31 11:59 | Outpatient (AMB) | payer OTHER, SELFPAY ==
[2024-12-31 12:03] VITALS: BP 116/74; PULSE 62; O2SAT 98; BMI 28.3
--- NOTE | 2024-12-31 12:03 | A.OFFPC_ITS ---
Vital Signs 12/31/24 12:03 Height 5 ft Weight 145 lb BMI 28.3 BP 116/74 Blood Pressure Location Lt brachial Position Sitting Pulse 62 Pulse Source Pulse Oximeter Pulse Oximetry (%) 98 Intake Visit Reasons: Annual PE Allergies aspirin (ASPIRIN) Allergy (Intermediate, Verified 12/31/24 12:03) STOMACH UPSET Medication List - Last Reconciled 12/31/24 by Travis Carias MD [Bilateral cock up wrist braces Wear at night] blood sugar diagnostic (FreeStyle Lite Strips) Once a day celecoxib 200 mg PO BID cholecalciferol (vitamin D3) 25 mcg PO DAILY cyanocobalamin (vitamin B-12) (Vitamin B-12) 500 mcg PO DAILY docusate sodium (Colace) 200 mg (2 x 100 mg) PO DAILY 90 days flash glucose scanning reader (FreeStyle [place]va 2 [place]) As directed flash glucose scanning reader (FreeStyle Melva [address] [place]) As directed lancets (FreeStyle Lancets) Once a day leg brace (Ankle Brace) As directed left Ankle support brace Dx: Achilles tendonitis levothyroxine 75 mcg PO DAILY 90 days lidocaine 5% 1 patch topical DAILY magnesium 250 mg PO DAILY omeprazole 20 mg PO BID 90 days Tobacco use date assessed: 04/15/24 Fall risk assessment: No Falls in past year Last assessed Fall Risk: 12/31/24 Dental Screening Dental Screen Date: 04/15/24 HPI Annual PE HPI Details History of Present Illness The patient is a 74-year-old female presenting for a physical examination and management of multiple chronic conditions. Osteoarthritis: - The patient has osteoarthritis in mult iple joints and is followed by a [facility] umatologist every three months. - She receives cortisone injections ever y two weeks, which were initially helpful but now the effect wears off faster. - She has bursitis on both sides, with t he left side being worse and the pain radiating to her lower back. - The composition molder plans to refer her to physical therapy, but the order has not been placed yet. - She takes Celebrex for her joint pain. Diabetes Mellitus: - The patient's diabetes is managed with diet control only and she takes no medication for it. - Recent labs from two days ago showed a n HbA1c of 6.2%. - She has successfully lost weight and i s now 145 lbs. Hypothyroidism: - The patient is on levothyroxine 75 mcg . - Recent lab work showed her TSH was wit hin normal limits. - Levothyroxine is prescribed from this office. Memory Impairment: - The patient has experienced recent epi sodes of forgetfulness, such as forgetting how to get to familiar places. - One recent incident involved her getti ng distracted and driving on the wrong side of the road. Carpal Tunnel Syndrome: - A nerve conduction study on December 12 was consistent with carpal tunnel syndrome. - The composition molder ordered braces for her hands, but the patient never received them or the prescription. Chronic GERD: - The patient takes omeprazole as prescr ibed by her auto finance sales rep. Vitamin Deficiencies: - The patient has a history of vitamin D and B12 deficiency. - She currently takes kjth-fhq-debjodd v itamin D. Eye Lesion right upper eyelid chronic - A small, benign-appearing lesion is pr esent on her eye. - The lesion was not present during her last eye exam in May of this year. Patient's daughter will call the ophthalmology for evaluation Constipation: - The patient takes a stool softener on an as-needed basis for constipation. Medical History: - Osteoarthritis of multiple joints - Chronic vertigo - Vitamin D deficiency - Vitamin B12 deficiency - Anxiety - Hypothyroidism - Diabetes mellitus - Chronic gastroesophageal reflux diseas e (GERD) - Carpal tunnel syndrome confirmed by ne rve conduction study - History of skin cancer screening - Bilateral bursitis trochanteric Social History: - The patient lives alone, but her siste r stays with her at night. - She is still driving, although there a re concerns about recent disorientation. - She has lost weight, with her current weight at 145 lbs. Health Maintenance - Mammogram was completed in April is year. - Influenza and shingles vaccinations we re administered at a [facility] approximately two weeks ago. - Eye examination was performed in May of this year. - Follow-up dermatology appointment is s cheduled for early next year. [place] of Care - Follows with a composition molder at [facility]. - Follows with Gastroenterology at [facility]. - Follows with a slaughterer religious ritual for skin cancer screening. - Follows with urologist Dr. Rosario. - No longer follows with an CHEMICAL DETECTION EXPERT. - Her sister stays with her at night. - Her caregiver (daughter) was present a t the appointment and is involved in her care. Medications - Celebrex for joint pain. - Vitamin D, dtfu-nfi-inosjns. - Stool softener, as needed for constipa tion. - Levothyroxine 75 mcg for hypothyroidis m. - Omeprazole for GERD. - The patient reports she is not current ly taking Vitamin B12. Diagnostic results - Labs from two days ago revealed the fo llowing: - Electrolytes and kidney function were intact. - Hemoglobin A1c was 6.2%. - Liver enzymes were stable. - LDL was 106. - TSH was within normal limits. - Other recent diagnostics include: - Mammogram in April of this year was up to date. Patient Instructions - Continue taking your dfbe-iab-jqqqahw Vitamin D unless told otherwise. - Plan to have blood work done in three months to check your thyroid (TSH), Vitamin B12, Vitamin D, and blood sugar (Hemoglobin A1c). In three-month - Schedule a follow-up appointment in [facility] office in six months. - A referral will be made for you to see a neurologist to evaluate your memory concerns. - A referral will be made for you to see a motion picture projectionist apprentice (foot doctor) for a diabetic foot exam and any discomfort you are having with your feet. - Contact your ophthalmology about the s mall growth on your eye. - For your hand tingling, try to wear a wrist brace at night and avoid bending your wrist downward for long periods, like when driving. - Follow up with your composition molder's o ffice regarding the physical therapy referral and the prescription for hand braces. Follow-up six-month Review of Systems - General: No fever no chills - Neurological: No headaches no dizzin ess - Ear nose throat: No sore throat no hearing difficulty no ear pain - Cardiovascular: No syncope, no chest pain, no palpitations - Gastrointestinal: No nausea vomiting or diarrhea - Endocrine: No polyuria polydipsia no heat intolerance - Genitourinary: No dysuria - Skin: No new complaints Physical Exam General: Cooperative, healthy appearing, comfortable, no acute distress Orientation: Patient oriented x3 Head: Normal to inspection Ears: Within normal limit visually Nose: Normal external nose present Face and sinus: Normal facial exam Eyes: Appearance normal, extraocular movement intact pupils reactive, noted a benign small lesion right upper eyelid Neck: Normal visual inspection and supple Respiratory: Normal respiratory effort and able to speak in complete sentences. Clear to auscultation, no stridor Cardiovascular: S1 and S2 RRR GI: Normal to inspection. Soft to palpation and nontender Skin: Turgor normal, no acute findings Neuro: Patient oriented x3, motor sensory intact, balance intact Extremities: Normal to inspection, range of motion intact both shoulders knees . [facility] Medical History Encounter for general adult medical examination with abnormal findings Hand weakness Hand pain Palpitations Sinusitis Abrasion of skin of left upper arm Injury of shoulder, left Fall Bladder disorder Cough Cervical paraspinal muscle spasm Dizziness Colon cancer screening Nausea & vomiting Vertigo Diabetes 1.5, managed as type 2 Chronic GERD Surgical History Status post excision of lipoma History of colonoscopy History of carpal tunnel release History of tubal ligation History of section Family History Father Lung cancer Mother Melanoma Maternal Aunt Breast cancer Daughter No problems noted. Daughter No problems noted. Daughter No problems noted. Daughter No problems noted. Other Mental health disorder Social History Household Members: None Housing: Condominium Alcohol intake: never Patient Tobacco Use Status: Never used Tobacco e-Cigarette/Vaping Use: Never Used Second Hand Smoke Exposure: No service: No Current occupational status: retired Cognitive needs: No Hearing needs: No Vision needs: Yes Questionnaire PHQ-9 Over the last 2 weeks, how often have you been bothered by any of the following problems? 1. Little interest or pleasure in doing things: not at all 2. Feeling down, depressed, or hopeless: not at all 3. Trouble falling or staying asleep, or sleeping too much: not at all 4. Feeling tired or having little energy: not at all 5. Poor appetite or overeating: not at all 6. Feeling bad about yourself - or that you are a failure or have let yourself or your family down: not at all 7. Trouble concentrating on things, such as reading the newspaper or watching television: not at all 8. Moving or speaking so slowly that other people could have noticed. Or the opposite - being so fidgety or restless that you have been moving around a lot more than usual: not at all 9. Thoughts that you would be better off or of hurting yourself in some way: not at all Total score: 0 Depression Screening Interpretation: Negative Depression Screening Done: Yes 85418 - PHQ-9 Billing: Yes Source: Developed by Drs. Pablo Estrada, Kelley Cerna, Pk Fofana and colleagues, with an educational harpreet from [employer]. Thrive Questionnaire Date Thrive assessed: 04/12/24 I am a: Patient What is your living situation today?: I have a steady place to live Within the past 12 months, did the food you bought not last and you didn't have the money to get more?: Often true Within the past 12 months, did you worry whether your food would run out before you got money to buy more?: Sometimes True Do you have trouble paying for medicines?: No Do you have trouble getting transportation to medical appointments?: No Do you have trouble paying your heating and electricity bill?: No Do you have trouble taking care of your child, family member or friend?: No Do you have trouble with day-to-day activities such as bathing, preparing meals, shopping, managing finances, etc.?: Yes Are you currently unemployed and looking for a job?: No Are you interested in more education?: No Please select the resources that you would like help with: Utilities Currently or been in a relationship where the following occur: No concerns reported THRIVE Score: 2 COLE-7 AMB Questionnaire COLE-7 Date COLE - 7 assessed: 04/15/24 Source: Developed by Drs. Pablo Estrada, Kelley Cerna, Pk Fofana and colleagues, with an educational harpreet from [employer]. Physical exam (Primary Care) Vital Signs: Last Vital Signs Pulse 62 12/31/24 12:03 BP 116/74 12/31/24 12:03 Pulse Ox 98 12/31/24 12:03 BMI result Body Mass Index 28.3 Tobacco/Smoking Status: Tobacco use Status Tobacco use date assessed 04/15/24 12/31/24 12:04 Patient Tobacco Use Status Never used Tobacco 12/31/24 12:04 e-Cigarette/Vaping Use Never Used 12/31/24 12:04 PHQ-9: PHQ-9 Score PHQ-9: Total score 0 12/31/24 12:04 Depression Screening Interpretation: Negative Thrive Assessment: Date of Thrive Assessment Date Thrive assessed 04/12/24 12/31/24 12:04 Currently or been in a relationship where the following occur: No concerns reported Coding Level of Care Code Est Pt Level 4 (93615) Est Pt Prev Care >65y(64911) Diagnoses Encounter for general adult medical examination with abnormal findings Z00.01 Memory changes R41.3 Diabetes 1.5, managed as type 2 E13.9 Other specified hypothyroidism E03.8 Vitamin B12 deficiency E53.8 Vitamin D deficiency E55.9 Bilateral carpal tunnel syndrome G56.03 Laterality: bilateral Trochanteric bursitis of left hip M70.62 Trochanteric bursitis, right hip M70.61 Chronic GERD K21.9 Additional Codes PHQ-9 - 56175 - PHQ-9 Billing: Yes ([id number]) Assessment & Plan Assessment & Plan (1) Encounter for general adult medical examination with abnormal findings: Code(s): Z00.01 - Encounter for general adult medical examination with abnormal findings Category: Medical (2) Memory changes: Code(s): R41.3 - Other amnesia Category: Medical (3) Diabetes 1.5, managed as type 2: Code(s): E13.9 - Other specified diabetes mellitus without complications Category: Medical (4) Other specified hypothyroidism: Code(s): E03.8 - Other specified hypothyroidism Category: Medical (5) Vitamin B12 deficiency: Code(s): E53.8 - Deficiency of other specified B group vitamins Category: Medical (6) Vitamin D deficiency: Code(s): E55.9 - Vitamin D deficiency, unspecified Category: Medical (7) Carpal tunnel syndrome: Comment: Symptomatic bilaterally. EMG confirms right median neuropathy. Code(s): G56.00 - Carpal tunnel syndrome, unspecified upper limb Category: Medical Qualifiers: Laterality: bilateral Qualified Code(s): G56.03 - Carpal tunnel syndrome, bilateral upper limbs (8) Trochanteric bursitis of left hip: Comment: Recurrent. Pain is uncontrolled. Trochanteric bursa cortisone injections this only lasting 2 months. In the past she has had evaluation from [facility] who have not advised pursuing surgery. Code(s): M70.62 - Trochanteric bursitis, left hip Category: Medical (9) Trochanteric bursitis, right hip: Comment: Recurrent. Pain is uncontrolled Code(s): M70.61 - Trochanteric bursitis, right hip Category: Medical (10) Chronic GERD: Code(s): K21.9 - Gastro-esophageal reflux disease without esophagitis Category: Medical Plan Osteoarthritis: - The patient has osteoarthritis in multiple joints and is followed by a composition molder every three months. - She receives cortisone injections every two weeks, which were initially helpful but now the effect wears off faster. - She has bursitis on both sides, with the left side being worse and the pain radiating to her lower back. - The composition molder plans to refer her to physical therapy, but the order has not been placed yet. - She takes Celebrex for her joint pain. Diabetes Mellitus: - The patient's diabetes is managed with diet control only and she takes no medication for it. - Recent labs from two days ago showed an HbA1c of 6.2%. - She has successfully lost weight and is now 145 lbs. Hypothyroidism: - The patient is on levothyroxine 75 mcg. - Recent lab work showed her TSH was within normal limits. - Levothyroxine is prescribed from this office. Memory Impairment: - The patient has experienced recent episodes of forgetfulness, such as for getting how to get to familiar places. - One recent incident involved her getting distracted and driving on the wrong side of the road. Carpal Tunnel Syndrome: - A nerve conduction study on December 12 was consistent with carpal tunnel syndrome. - The composition molder ordered braces for her hands, but the patient never received them or the prescription. Chronic GERD: - The patient takes omeprazole as prescribed by her auto finance sales rep. Vitamin Deficiencies: - The patient has a history of vitamin D and B12 deficiency. - She currently takes lzqg-ind-octpgco vitamin D. Eye Lesion right upper eyelid chronic - A small, benign-appearing lesion is present on her eye. - The lesion was not present during her last eye exam in May of this year. Patient's daughter will call the ophthalmology for evaluation Constipation: - The patient takes a stool softener on an as-needed basis for constipation. Medical History: - Osteoarthritis of multiple joints - Chronic vertigo - Vitamin D deficiency - Vitamin B12 deficiency - Anxiety - Hypothyroidism - Diabetes mellitus - Chronic gastroesophageal reflux disease (GERD) - Carpal tunnel syndrome confirmed by nerve conduction study - History of skin cancer screening - Bilateral bursitis trochanteric Social History: - The patient lives alone, but her sister stays with her at night. - She is still driving, although there are concerns about recent disorientation. - She has lost weight, with her current weight at 145 lbs. Health Maintenance - Mammogram was completed in April of this year. - Influenza and shingles vaccinations were administered at a [facility] pharmacy approximately two weeks ago. - Eye examination was performed in May of this year. - Follow-up dermatology appointment is scheduled for early next year. [place] of Care - Follows with a composition molder at [facility]. - Follows with Gastroenterology at [facility]. - Follows with a slaughterer religious ritual for skin cancer screening. - Follows with urologist Dr. Rosario. - No longer follows with an CHEMICAL DETECTION EXPERT. - Her sister stays with her at night. - Her caregiver (daughter) was present at the appointment and is involved in her care. Medications - Celebrex for joint pain. - Vitamin D, byec-gof-xatgsjo. - Stool softener, as needed for constipation. - Levothyroxine 75 mcg for hypothyroidism. - Omeprazole for GERD. - The patient reports she is not currently taking Vitamin B12. Diagnostic results - Labs from two days ago revealed the following: - Electrolytes and kidney function were intact. - Hemoglobin A1c was 6.2%. - Liver enzymes were stable. - LDL was 106. - TSH was within normal limits. - Other recent diagnostics include: - Mammogram in April of this year was up to date. Patient Instructions - Continue taking your yhyv-bks-utbzryz Vitamin D unless told otherwise. - Plan to have blood work done in three months to check your thyroid (TSH), Vitamin B12, Vitamin D, and blood sugar (Hemoglobin A1c). In three-month - Schedule a follow-up appointment in this office in six months. - A referral will be made for you to see a neurologist to evaluate your memory concerns. - A referral will be made for you to see a motion picture projectionist apprentice (foot doctor) for a diabetic foot exam and any discomfort you are having with your feet. - Contact your ophthalmology about the small growth on your eye. - For your hand tingling, try to wear a wrist brace at night and avoid bending your wrist downward for long periods, like when driving. - Follow up with your composition molder's office regarding the physical therapy referral and the prescription for hand braces. Follow-up six-month Orders: Orders TSH reflex Free T4 3 Months E03.8 - Other specified hypothyroidism, E13.9 - Other specified diabetes mellitus without complications, E53.8 - Deficiency of other specified B group vitamins, E55.9 - Vitamin D deficiency, unspecified Hemoglobin A1c 3 Months E03.8 - Other specified hypothyroidism, E13.9 - Other specified diabetes mellitus without complications, E53.8 - Deficiency of other specified B group vitamins, E55.9 - Vitamin D deficiency, unspecified Vitamin D 25-OH (D2 and D3) 3 Months E03.8 - Other specified hypothyroidism, E13.9 - Other specified diabetes mellitus without complications, E53.8 - Defi ciency of other specified B group vitamins, E55.9 - Vitamin D deficiency, unspecified Vitamin B12 3 Months E03.8 - Other specified hypothyroidism, E13.9 - Other specified diabetes mellitus without complications, E53.8 - Deficiency of other specified B group vitamins, E55.9 - Vitamin D deficiency, unspecified Referrals Neurology Referral R41.3 - Other amnesia Podiatry Referral E11.9 - Type 2 diabetes mellitus without complications
--- OUTSIDE RECORDS SUMMARY | 2024-12-31 14:54 | XMS_ITS | Data Portability ---
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 Symptoms improved with 2 ucyx-vp-iedd duonebs Sent rx for symbicort to use BID until sxs improve. Sent rx for flonase to use BID and tessalon perles PRN cough. Red flags reviewed [email or web address] Not available 07/02/2024 15:51:54 Plan of Treatment Reminders Order Date Submit Date Provider Last Modified By Organization Details Last Modified Time Details Appointments None recorded. Lab rapid SARS CoV 2 Ag, QL IA, respiratory specimen 2024 025 [email or web address] [address], [address] 5 11:14:25 rapid flu (A+B) 2024 025 [email or web address] [address], [address] 5 11:14:25 Referral None recorded. Procedures None recorded. Surgeries None recorded. Imaging None recorded. Medication Orders Symbicort 80 mcg-4.5 mcg/actuati on HFA aerosol inhaler 2024 025 [facility] #63510, [address] [place] [address], [id number], 5 11:14:33 benzonatate 100 mg capsule 2024 025 [facility] #83764, [address] [place] [address], [id number], 11:14:34 Flonase Allergy Relief 50 mcg/actuati on nasal spray,suspe nsion 2024 025 [facility] #34813, [address] [place] [address], [id number], 11:14:33 ipratropium 0.5 mg-albutero l 3 mg (2.5 mg base)/3 mL nebulizatio n soln 2024 [email or web address] [place] [address] [address]50607, [address] [place] [address], [id number], 5 11:14:25 ipratropium 0.5 mg-albutero l 3 mg (2.5 mg base)/3 mL nebulizatio n soln 2024 [email or web address] [place] [address] [address]64781, [address] [place] [address], [phone], 11:14:25 Patient TargetsNo targets recorded. Patient InstructionsNo instructions recorded. Reason for Referral None Reported. Results Created Date Observation Date Name Description Value Unit Range Abnormal Flag Note LastModifiedBy Organization Detail LastModifiedTime 07/03/19 25 07/02/2024 rapid flu (A+B) Flu negati ve Not Available Main - Inst ed [address] [place] [address], [phone] 07/02/2024 11:11:38 07/03/19 25 07/02/2024 rapid SARS CoV 2 Ag, QL IA, respi rator y speci men rapid SARS CoV 2 Ag, QL IA, respiratory specimen negati ve Not Available Main - [facility] ed [address] [place], [address] 07/02/2024 11:11:37 Result Notes None recorded. Medical Equipment None Reported. Allergies Allergen ID Allergen Name Allergen Category Reaction Reaction Severity Criticality Documentation Date Start Date Code Code System Note Provider Name and Address Organization Details Recorded Time 93937 aspirin medicatio n Not available Not available Not available 07/01/2024 1191 RxNorm Not Available [email or web address] - production 22:03:31 Medications Name Sig Start [...] /min 95 % 95 % 152.4 cm 08862.6 g 79 /min 98 [degF] 138/88 mm[Hg] [...] ICD10 Code Diagnosis IMO Codes Diagnosis Note [id number] ZEFERINO OROZCO MD Main - [facility] [address] [place] [phone] 07/02/2024 11:09:11 07/02/2024 17:35:11 Acute bronchitis 88994580 J20.9 [id number] Health Concerns Section Related Observation LastModified by Organization Detai ls LastModified Time None Recorded Concern Status LastModified by Organization Details LastModified Time None Recorded Advance Directives Directive None Recorded Payers Insurance Date Sequence Insurance Name Policy Number Policy Montes Covered Member ID Montes Member ID Guarantor Name 07/01/2024 1 [facility] - DOS ON OR AFTER 2022 - DUAL ELIGIBLE - CARE HOME OPTIONS AND ONE CARE (MEDICARE REPLACEMENT/AD VANTAGE - HMO) Marilyn Engle [id number] Marilyn Engle Notes Date Note Type Note [...] be tomorrow on 07/02/24. Janeth Pickard RN Wastewater Treatment Supervisor Organization Information for Gustavo Stone [employer] Legal Name: [facility] Transportation Address: [address] [place] [address], [place] [address], Application Support Administrator: Mode Cortes MD [place] No.: [id number] Wastewater Treatment Supervisor POC Test Results from Gustavo Stone Rapid COVID antigen (11:03:09) COVID: - Rapid influenza antigen (11:03:09) Flu: - .................... .................... .................... .................... .................... .................... .................... . Wastewater Treatment Supervisor Note From Gustavo Stone: Patient alert and [...] for Covid and flu via rapid POC. [facility] [place] duo nebulizer now and will prescribe Symbicort, Flonase to patient s local pharmacy. Family reports they can parts picker prescription today. Medication administered as ordered using five rights without complication. Patient reports some relief of breathing symptoms. Red flags, patient education discussed. Patient and caregiver demonstrating understanding of care and plan. [facility] Lab Orders: rapid SARS CoV 2 Ag, QL IA, respiratory specimen: Performed rapid flu (A+B): Performed [facility] Medication Orders: ipratropium 0.5 mg-albuterol 3 mg (2.5 mg base)/3 mL nebulization soln: Administered ipratropium 0.5 mg-albuterol 3 mg (2.5 mg base)/3 mL nebulization soln: Administered .................... .................... .................... .................... .................... .................... .................... . [facility] Consulted: Zeferino Orozco .................... .................... .................... .................... .................... .................... .................... . Disposition: Fulfilled ZEFERINO OROZCO MD [address] [facility],[address], [place], [address], MYLES - JUNIOR MCCONNELL 07/02/2024 15:52:12 OBGyn Episode No OBEpisode recorded.
== END 2024-12-31 12:29 | disposition home or self-care (01) ==
LOC: HO.HMCC 12:00
PROVIDERS: PCP Internal Medicine; Visit Provider Internal Medicine
DX: Z00.01 Encounter for general adult medical examination with abnormal findings (principal); R41.3 Other amnesia; E13.9 Other specified diabetes mellitus without complications; E03.8 Other specified hypothyroidism; E53.8 Deficiency of other specified B group vitamins; E55.9 Vitamin D deficiency, unspecified; G56.03 Carpal tunnel syndrome, bilateral upper limbs; M70.62 Trochanteric bursitis, left hip; M70.61 Trochanteric bursitis, right hip; K21.9 Gastro-esophageal reflux disease without esophagitis

== ENCOUNTER → 2024-12-31 11:59 | Outpatient (BNVA) | payer OTHER, SELFPAY | PROVIDERS: PCP Internal Medicine; Visit Provider Internal Medicine | DX: Z00.01 Encounter for general adult medical examination with abnormal findings (principal); M15.9 Polyosteoarthritis, unspecified; G56.03 Carpal tunnel syndrome, bilateral upper limbs; K21.9 Gastro-esophageal reflux disease without esophagitis; R41.3 Other amnesia; E13.9 Other specified diabetes mellitus without complications; E03.8 Other specified hypothyroidism; E53.8 Deficiency of other specified B group vitamins; E55.9 Vitamin D deficiency, unspecified; M70.62 Trochanteric bursitis, left hip; M70.61 Trochanteric bursitis, right hip | CPT/HCPCS: 96127; 99397 ==

== ENCOUNTER 2025-01-08 12:32 | Outpatient (AMB) | payer OTHER, SELFPAY ==
[2025-01-08 12:45] VITALS: BP 110/70; PULSE 63; O2SAT 96; BMI 27.6
--- NOTE | 2025-01-08 12:45 | A.OFFVIS_ITS ---
Vital Signs 01/08/25 12:45 Height 5 ft Weight 141 lb 5.061 oz BMI 27.6 BP 110/70 Blood Pressure Location Rt brachial Position Sitting Pulse 63 Pulse Source Pulse Oximeter Pulse Oximetry (%) 96 Oxygen Delivery Method Room Air Intake Visit Reasons: Bursa injection Intake Note: Left trochanteric bursa cortisone injections lasting 2 months. Right trochanteric bursa cortisone injection is lasting 3 months. Accompanied by: Daughter Allergies aspirin (ASPIRIN) Allergy (Intermediate, Verified 01/08/25 12:45) STOMACH UPSET HPI HPI Bursa injection: Details: Italian-speaking patient. Daughter interprets for patient. Right hip pain is uncontrolled. She received pain relief with left trochanteric bursa injection last visit. She has been using lidocaine patches and applying heat to her back with benefit. When her daughter contacted PT they did not have the order for lower back. [facility] Medical History Encounter for general adult medical examination with abnormal findings Hand weakness Hand pain Palpitations Sinusitis Abrasion of skin of left upper arm Injury of shoulder, left Fall Bladder disorder Cough Cervical paraspinal muscle spasm Dizziness Colon cancer screening Nausea & vomiting Vertigo Diabetes 1.5, managed as type 2 Chronic GERD Surgical History Status post excision of lipoma History of colonoscopy History of carpal tunnel release History of tubal ligation History of section Family History Father Lung cancer Mother Melanoma Maternal Aunt Breast cancer Daughter No problems noted. Daughter No problems noted. Daughter No problems noted. Daughter No problems noted. Other Mental health disorder Social History Household Members: None Housing: Condominium Alcohol intake: never Patient Tobacco Use Status: Never used Tobacco e-Cigarette/Vaping Use: Never Used Second Hand Smoke Exposure: No service: No Current occupational status: retired Cognitive needs: No Hearing needs: No Vision needs: Yes Physical Exam Vital Signs: Last Vital Signs Pulse 63 01/08/25 12:45 BP 110/70 01/08/25 12:45 Pulse Ox 96 01/08/25 12:45 Oxygen Delivery Method Room Air 01/08/25 12:45 BMI result Body Mass Index 27.6 Const Other: General: Comfortable Skin: No lesions seen MSK: Bilateral trochanteric bursa tenderness found on palpation. Normal range of motion of hips. Office Procedures AMB Joint Injection/Aspiration Joint Injection/Aspiration Details: Right trochanteric bursa Prep: site was prepped using aseptic technique Injected: 40 mg of, Kenalog, with 1 mL of and 1% plain lidocaine Procedure: Informed verbal consent was obtained. The patient tolerated the procedure well. Postprocedure protocol was discussed with patient. Coding 56496 - Large joint Procedure code (CPT) selection complete Office Meds lidocaine (PF) 10 mg/mL (1 %) injection solution Performing Provider: Sina Menjivar MD Performing Location: [facility] Administered by: Sina Menjivar MD on 01/08/25 13:08 Dose Route Admin Location Dispensed Lot Number Expiration Date [facility] Claim Auditor 1 mL Infiltration right hip bursa 2 mL [id number] 10/20/27 55374-635- 04 [employer] Total Dispensed Waste 2 mL 50 % Kenalog 40 mg/mL suspension for injection Performing Provider: Sina Menjivar MD Performing Location: [facility] Administered by: Sina Menjivar MD on 01/08/25 13:08 Dose Route Admin Location Dispensed Lot Number Expiration Date [facility] Claim Auditor 40 mg intrabursal right hip bursa 1 mL [id number] 08/18/26 [address] -1 [employer] Total Dispensed Waste 1 mL 0 % Assessment & Plan Assessment & Plan (1) Trochanteric bursitis, right hip: Comment: Recurrent. Code(s): M70.61 - Trochanteric bursitis, right hip Category: Medical Plan: Patient received right trochanteric bursa cortisone injection this visit Continue Celebrex 200 mg twice a day. Labs for drug monitoring on chronic NSAID up-to-date Monitor blood sugars. History of diabetes. History of transient hyperglycemia after cortisone injections. She receives 1 cortisone injection at a time per visit Return to clinic in 3 months (2) Trochanteric bursitis of left hip: Comment: Recurrent. In the past she has had evaluation from [facility] who have not advised pursuing surgery. Code(s): M70.62 - Trochanteric bursitis, left hip Category: Medical Plan: Continue Celebrex 200 mg twice a day. Labs for drug monitoring on chronic NSAID up-to-date Monitor blood sugars. History of diabetes. History of transient hyperglycemia after cortisone injections. She receives 1 cortisone injection at a time per visit Return to clinic in 3 months. She will need two appointments 2 weeks apart. (3) Low back pain: Comment: She has myofascial strain contributing to her back pain along with lumbar spondylosis. Pain is radiating to left leg. She has not started PT Code(s): M54.50 - Low back pain, unspecified Category: Medical Qualifiers: Back pain laterality: midline Chronicity: chronic Sciatica laterality: sciatica of left side Sciatica presence: with sciatica Qualified Code(s): M54.42 - Lumbago with sciatica, left side; G89.29 - Other chronic pain Plan: Continue to apply heat to back twice a day Continue lidocaine patch applied to back daily Continue Celebrex 200 mg twice a day Labs for drug monitoring chronic NSAID up-to-date I have asked her to schedule physical therapy Return to clinic in 3 months. (4) Carpal tunnel syndrome: Comment: Symptomatic bilaterally. EMG confirms right median neuropathy. Code(s): G56.00 - Carpal tunnel syndrome, unspecified upper limb Category: Medical Qualifiers: Laterality: bilateral Qualified Code(s): G56.03 - Carpal tunnel syndrome, bilateral upper limbs Plan: Bilateral cock-up wrist braces prescribed to wear at night Return to clinic in 3 months (5) Osteoarthritis, hand: Comment: X-rays June 2024 reviewed with patient. She is having functional difficulties with her hands. She has not started OT. Code(s): M19.049 - Primary osteoarthritis, unspecified hand Category: Medical Qualifiers: Laterality: bilateral Osteoarthritis type: primary Qualified Code(s): M19.041 - Primary osteoarthritis, right hand; M19.042 - Primary osteoarthritis, left hand Plan: OT prescribed in a past visit. She can only schedule either physical therapy or O per insurance requirement.. She will focus on PT for her back strengthening before starting OT. 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 (current) use of non-steroidal anti-inflammatories (NSAID) Category: Medical Plan: See above Orders: Orders AMB Joint Injection/Aspiration Today M70.61 - Trochanteric bursitis, right hip Coding Level of Care Code Est Pt Level 3 (50990) Diagnoses Trochanteric bursitis, right hip M70.61 Trochanteric bursitis of left hip M70.62 Chronic midline low back pain with left-sided sciatica M54.42; G89.29 Back pain laterality: midline Chronicity: chronic Sciatica laterality: sciatica of left side Sciatica presence: with sciatica Bilateral carpal tunnel syndrome G56.03 Laterality: bilateral Primary osteoarthritis of both hands M19.041; M19.042 Laterality: bilateral Osteoarthritis type: primary longterm (current) use of non-steroidal anti-inflammatories (nsaid) Z79.1 CPT Codes Coding - 07626 Large joint: 43367 - Large joint ([id number])
--- OUTSIDE RECORDS SUMMARY | 2025-01-08 18:24 | XMS_ITS | Data Portability ---
Author Organization [employer] Medical [facility] Address [address] [place] [phone] Care Team Providers Care Reo Asset Manager Name Role Phone HIM CCA OTHER TANA [...] course of disease. Symptoms improved with 2 lvfg-ze-fqjg duonebs Sent rx for symbicort to use BID until sxs improve. Sent rx for flonase to use BID and tessalon perles PRN cough. Red flags reviewed [email or web address] Not available 07/02/2024 15:51:54 Plan of Treatment Reminders Order Date Submit Date Provider Last Modified By Organization Details Last Modified Time Details Appointments None recorded. Lab rapid SARS CoV 2 Ag, QL IA, respiratory specimen 2024 025 [email or web address] [address], [address] 5 11:14:25 rapid flu (A+B) 2024 025 [email or web address] [address], [address] 5 11:14:25 Referral None recorded. Procedures None recorded. Surgeries None recorded. Imaging None recorded. Medication Orders Symbicort 80 mcg-4.5 mcg/actuati on HFA aerosol inhaler 2024 025 [facility] #93496, [address] [place] [address], [id number], 5 11:14:33 benzonatate 100 mg capsule 2024 025 [facility] #52374, [address] [place] [address], [phone], 11:14:34 Flonase Allergy Relief 50 mcg/actuati on nasal spray,suspe nsion 2024 025 [facility] #11584, [address] [place] [address], [id number], 11:14:33 ipratropium 0.5 mg-albutero l 3 mg (2.5 mg base)/3 mL nebulizatio n soln 2024 [email or web address] [place] [address] #13366, [address] [place] [address], [id number], 5 11:14:25 ipratropium 0.5 mg-albutero l 3 mg (2.5 mg base)/3 mL nebulizatio n soln 2024 [email or web address] [place] [address] #01454, [address] [place] [address], [phone], 11:14:25 Patient TargetsNo targets recorded. Patient InstructionsNo instructions recorded. Reason for Referral None Reported. Results Created Date Observation Date Name Description Value Unit Range Abnormal Flag Note LastModifiedBy Organization Detail LastModifiedTime 07/03/19 25 07/02/2024 rapid flu (A+B) Flu negati ve Not Available Main - Inst ed [address] [place] [address], [phone] 07/02/2024 11:11:38 07/03/19 25 07/02/2024 rapid SARS CoV 2 Ag, QL IA, respi rator y speci men rapid SARS CoV 2 Ag, QL IA, respiratory specimen negati ve Not Available Main - [facility] ed [address] [place], [address] 07/02/2024 11:11:37 Result Notes None recorded. Medical Equipment None Reported. Allergies Allergen ID Allergen Name Allergen Category Reaction Reaction Severity Criticality Documentation Date Start Date Code Code System Note Provider Name and Address Organization Details Recorded Time 48476 aspirin medicatio n Not available Not available Not available 07/01/2024 1191 RxNorm Not Available [email or web address] - production 22:03:31 Medications Name Sig Start [...] Vitals Date Recorded Respiratory rate Oxygen saturation Body height Body weight Heart rate Body temperature Systolic And Diastolic Provider Name and Address Organization Details Last Updated DateTime 5 14 /min 95 % 152.4 cm 80722.6 g 79 /min 98 [degF] 138/88 mm[Hg] [...] ICD10 Code Diagnosis IMO Codes Diagnosis Note 17910 ZEFERINO OROZCO MD Main - [address] [phone] 07/02/2024 11:09:11 07/02/2024 17:35:11 Acute bronchitis [id number] J20.9 [id number] Health Concerns Section Related Observation LastModified by Organization Detai ls LastModified Time None Recorded Concern Status LastModified by Organization Details LastModified Time None Recorded Advance Directives Directive None Recorded Payers Insurance Date Sequence Insurance Name Policy Number Policy Montes Covered Member ID Montes Member ID Guarantor Name 07/01/2024 1 [facility] - DOS ON OR AFTER 2022 - DUAL ELIGIBLE - SENIOR LIVING OPTIONS AND ONE CARE (MEDICARE REPLACEMENT/AD VANTAGE - HMO) Marilyn Engle [id number] Marilyn Engle Notes Date Note Type Note [...] - 22:03 Allergies Reviewed at 07/01/2024 - 22:03 Comments: Member's daughter called in reporting member [...] be tomorrow on 07/02/24. Janeth Pickard RN Raise Miner Organization Information for [employer]avo Stone [employer] Legal Name: [facility] Address: [address] [place] [address], [place] [address], Forepart Rounder: Mode Cortes MD [facility] No.: [id number] Raise Miner POC Test Results from Gustavo Stone Rapid COVID antigen (11:03:09) COVID: - Rapid influenza antigen (11:03:09) Flu: - .................... .................... .................... .................... .................... .................... .................... . Raise Miner Note From Gustavo Stone: Patient alert and [...] for Covid and flu via rapid POC. [facility] orders duo nebulizer now and will prescribe Symbicort, Flonase to patient s local pharmacy. Family reports they can machine pecan picker prescription today. Medication administered as ordered using five rights without complication. Patient reports some relief of breathing symptoms. Red flags, patient education discussed. Patient and caregiver demonstrating understanding of care and plan. [facility] Lab Orders: rapid SARS CoV 2 Ag, QL IA, respiratory specimen: Performed rapid flu (A+B): Performed [facility] Medication Orders: ipratropium 0.5 mg-albuterol 3 mg (2.5 mg base)/3 mL nebulization soln: Administered ipratropium 0.5 mg-albuterol 3 mg (2.5 mg base)/3 mL nebulization soln: Administered .................... .................... .................... .................... .................... .................... .................... . [facility] Consulted: Zeferino Orozco .................... .................... .................... .................... .................... .................... .................... . Disposition: Fulfilled ZEFERINO OROZCO MD [address] [place] [address],[address], [place], [address], [employer] Status Overload [facility] 07/02/2024 15:52:12 OBGyn Episode No OBEpisode recorded.
== END 2025-01-08 13:06 | disposition home or self-care (01) ==
LOC: HO.RHES 12:33
PROVIDERS: PCP Internal Medicine; Visit Provider Internal Medicine Rheumatology
DX: M70.61 Trochanteric bursitis, right hip (principal); M70.62 Trochanteric bursitis, left hip; M54.42 Lumbago with sciatica, left side; G89.29 Other chronic pain; G56.03 Carpal tunnel syndrome, bilateral upper limbs; M19.041 Primary osteoarthritis, right hand; M19.042 Primary osteoarthritis, left hand; Z79.1 Long term (current) use of non-steroidal anti-inflammatories (NSAID)
CPT/HCPCS: 20610; 99213

== ENCOUNTER → 2025-01-08 12:32 | Outpatient (BNVA) | payer OTHER, SELFPAY | PROVIDERS: PCP Internal Medicine; Visit Provider Internal Medicine Rheumatology | DX: M70.61 Trochanteric bursitis, right hip (principal); M70.62 Trochanteric bursitis, left hip; M54.42 Lumbago with sciatica, left side; G89.29 Other chronic pain; G56.03 Carpal tunnel syndrome, bilateral upper limbs; M19.041 Primary osteoarthritis, right hand; M19.042 Primary osteoarthritis, left hand; Z79.1 Long term (current) use of non-steroidal anti-inflammatories (NSAID) | CPT/HCPCS: 20610; 99212; J2003; J3301 ==